=== PATIENT | male | born 1940 | race Caucasian/White ===

== ENCOUNTER 2017-04-17 08:47 | Inpatient (IN) | payer MEDICARE ==
[2017-04-17] MEDS ORDERED: SODIUM CHLORIDE 0.9% 1,000 ML IV STA (09:05)
--- NOTE | 2017-04-17 09:12 | ED ---
General Adult HPI - General Chief complaint: Fall Stated complaint: fall, chest pain,sweats Time Seen by Provider: 04/17/17 08:54 Source: patient, RN notes reviewed, old records reviewed Mode of arrival: wheelchair Limitations: physical limitation - History of Present Illness Initial comments: Patient is a 77-year-old male with significant past medical history for diabetes , hypertension, hyperlipidemia, penile cancer, who presents emergency room today with multiple complaints. Patient does admit that he had a fall 3 days ago. He states he was outside using a Rototiller. States he fell hitting the handle. Also admits that he had a fall hitting the right side of his anterior ribs on a step. Patient hasn't met that he's had a history of some frequent falls. He denies any head injury or loss conscious. She is not on any blood tenderness. States he has had some pain to the right side of his ribs has been worsening cough and certain movements. He does admit that he is experiencing some pain in the right chest wall at this time. He admits that he's had some "night sweats" the last 2 nights. He denies any recorded temperatures. He admits that he's had increased urinary urgency. States that he's had difficulty at times making to the bathroom and has had a few accidents. 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 He does admit to some chronic numbness tingling going in both legs. States she's not noticed any increase here. States he has had any numbness or tingling in the groin area. Patient does admit that he did experience some low back pain. A was working in his ear at this time denies any back pain. Currently only experiencing some mild right- sided chest pain which she attributes these falls. Patient denies any recent fever, chills, shortness of breath, chest pain, back pain, abdominal pain, nausea or vomiting, numbness or tingling, dysuria or hematuria, constipation or diarrhea, headaches or visual changes, or any other complaints. - Related Data Home Medications Medication Instructions Recorded Confirmed Lovastatin [Mevacor] 40 mg PO HS 02/18/16 04/17/17 rOPINIRole HCL 3 mg PO HS 02/18/16 04/17/17 metFORMIN HCL [Glucophage] 1,000 mg PO BID 05/23/16 04/17/17 Amitriptyline HCl [Elavil] 25 mg PO HS 04/17/17 04/17/17 Aspirin 81 mg PO DAILY 04/17/17 04/17/17 Cholecalciferol [Vitamin D3] 1,000 unit PO DAILY 04/17/17 04/17/17 Cyanocobalamin (Vitamin B-12) 1,000 mcg PO DAILY 04/17/17 04/17/17 [Vitamin B-12] Lisinopril-Hctz 20-12.5 mg 1 tab PO DAILY 04/17/17 04/17/17 [Zestoretic 20-12.5] Previous Rx's Medication Instructions Recorded Multivitamins, Thera [Multivitamin 1 tab PO DAILY #30 tablet 02/21/16 (formulary)] Allergies Allergy/AdvReac Type Severity Reaction Status Date / Time amoxicillin trihydrate Allergy Rash/Hives Verified 04/17/17 09:16 [From Augmentin] potassium clavulanate Allergy Rash/Hives Verified 04/17/17 09:16 [From Augmentin] Review of Systems ROS Statement: Those systems with pertinent positive or pertinent negative responses have been documented in the HPI. ROS Other: All systems not noted in ROS Statement are negative. Past Medical History Past Medical History: Cancer, Diabetes Mellitus, Hyperlipidemia, Hypertension, Osteoarthritis (OA), Pneumonia Additional Past Medical History / Comment(s): hx penile cancer History of Any Multi-Drug Resistant Organisms: None Reported Past Surgical History: Orthopedic Surgery Additional Past Surgical History / Comment(s): penectomy, great toe left foot amputated, mukul cataract Past Anesthesia/Blood Transfusion Reactions: No Reported Reaction Past Psychological History: No Psychological Hx Reported Additional Psychological History / Comment(s): . Smoking Status: Never smoker Past Alcohol Use History: Daily Past Drug Use History: None Reported - Past Family History Father Family Medical History: Cancer Mother Family Medical History: Coronary Artery Disease (CAD) General Exam Limitations: physical limitation Course Vital Signs 04/17/17 04/17/17 04/17/17 08:49 09:49 10:00 Temperature 98.8 F Pulse Rate 97 91 95 Respiratory 20 18 18 Rate Blood Pressure 160/78 154/72 154/76 O2 Sat by Pulse 97 92 L Oximetry EKG Findings - EKG Comments: EKG Findings:: EKG performed at 0903: Shows normal sinus rhythm at 97 bpm. KS interval 148. QRS 100. QT/QTC 370/469. No acute ST changes. Medical Decision Making - Medical Decision Making Is reexamined at this time shows no signs of distress resting comfortably in the stretcher. Patient's x-ray of the chest does show evidence of a left-sided pneumonia. Patient does have right sixth rib fracture nondisplaced. Patient's CT of the head does show evidence for normal pressure hydrocephalus and chronic sinusitis. No other acute abnormalities appreciated his cervical spine or head CT. Patient's labs reviewed and does show 30,000 white count. Patient has seen for elevated white counts in the past. Patient urinalysis does show 7 white cells with occasional bacteria. Culture is pending. Patient has been started on Levaquin to cover for pneumonia and urinary tract infection. Patient will be admitted to the hospital for further treatment. - Lab Data Result diagrams: 04/17/17 09:11 04/17/17 09:11 Lab Results 04/17/17 04/17/17 04/17/17 Range/Units 09:11 09:11 09:11 WBC 30.8 H* (3.8-10.6) k/uL RBC 4.57 (4.30-5.90) m/uL Hgb 12.6 L (13.0-17.5) gm/dL Hct 39.8 (39.0-53.0) % MCV 87.1 (80.0-100.0) fL MCH 27.5 (25.0-35.0) pg MCHC 31.6 (31.0-37.0) g/dL RDW 19.0 H (11.5-15.5) % Plt Count 106 L (150-450) k/uL Neutrophils % (Manual) 60.0 % Band Neutrophils % 27.5 % Lymphocytes % (Manual) 2.0 % Monocytes % (Manual) 0.5 % Metamyelocytes % 6.0 % Myelocytes % 3.0 % Promyelocytes % 1.0 % Neutrophils # (Manual) 27.0 H (1.3-7.7) k/uL Lymphocytes # (Manual) 0.6 L (1.0-4.8) k/uL Monocytes # (Manual) 0.2 (0-1.0) k/uL Nucleated RBCs 1 H (0-0) /100 WBC Manual Slide Review Performed Toxic Granulation Present Hypochromasia Slight Anisocytosis Slight PT (9.0-12.0) sec INR (<1.1) APTT (22.0-30.0) sec Sodium 139 (137-145) mmol/L Potassium 4.8 (3.5-5.1) mmol/L Chloride 101 (98-107) mmol/L Carbon Dioxide 20 L (22-30) mmol/L Anion Gap 18 mmol/L BUN 27 H (9-20) mg/dL Creatinine 1.55 H (0.66-1.25) mg/dL Est GFR (MDRD) Af Amer 53 (>60 ml/min/1.73 sqM) Est GFR (MDRD) Non-Af 44 (>60 ml/min/1.73 sqM) Glucose 200 H (74-99) mg/dL Plasma Lactic Acid Mando (0.7-2.0) mmol/L Calcium 9.8 (8.4-10.2) mg/dL Magnesium 1.8 (1.6-2.3) mg/dL Total Bilirubin 1.3 (0.2-1.3) mg/dL AST 37 (17-59) U/L ALT 30 (21-72) U/L Alkaline Phosphatase 106 (38-126) U/L Total Creatine Kinase 97 (55-170) U/L CK-MB (CK-2) 0.7 (0.0-2.4) ng/mL CK-MB (CK-2) Rel Index 0.7 Troponin I 0.031 (0.000-0.034) ng/mL Total Protein 7.5 (6.3-8.2) g/dL Albumin 4.3 (3.5-5.0) g/dL Urine Color Urine Appearance (Clear) Urine pH (5.0-8.0) Ur Specific [place] (1.001-1.035) Urine Protein (Negative) Urine Glucose (UA) (Negative) Urine Blood (Negative) Urine Nitrite (Negative) Urine Bilirubin (Negative) Urine Urobilinogen (<2.0) mg/dL Ur Leukocyte Esterase (Negative) Urine RBC (0-5) /hpf Urine WBC (0-5) /hpf Urine WBC Clumps (None) /hpf Urine Bacteria (None) /hpf 04/17/17 04/17/17 04/17/17 Range/Units 09:11 09:11 10:00 WBC (3.8-10.6) k/uL RBC (4.30-5.90) m/uL Hgb (13.0-17.5) gm/dL Hct (39.0-53.0) % MCV (80.0-100.0) fL MCH (25.0-35.0) pg MCHC (31.0-37.0) g/dL RDW (11.5-15.5) % Plt Count (150-450) k/uL Neutrophils % (Manual) % Band Neutrophils % % Lymphocytes % (Manual) % Monocytes % (Manual) % Metamyelocytes % % Myelocytes % % Promyelocytes % % Neutrophils # (Manual) (1.3-7.7) k/uL Lymphocytes # (Manual) (1.0-4.8) k/uL Monocytes # (Manual) (0-1.0) k/uL Nucleated RBCs (0-0) /100 WBC Manual Slide Review Toxic Granulation Hypochromasia Anisocytosis PT 11.2 (9.0-12.0) sec INR 1.1 (<1.1) APTT 30.5 H (22.0-30.0) sec Sodium (137-145) mmol/L Potassium (3.5-5.1) mmol/L Chloride (98-107) mmol/L Carbon Dioxide (22-30) mmol/L Anion Gap mmol/L BUN (9-20) mg/dL Creatinine (0.66-1.25) mg/dL Est GFR (MDRD) Af Amer (>60 ml/min/1.73 sqM) Est GFR (MDRD) Non-Af (>60 ml/min/1.73 sqM) Glucose (74-99) mg/dL Plasma Lactic Acid Mando 1.5 (0.7-2.0) mmol/L Calcium (8.4-10.2) mg/dL Magnesium (1.6-2.3) mg/dL Total Bilirubin (0.2-1.3) mg/dL AST (17-59) U/L ALT (21-72) U/L Alkaline Phosphatase (38-126) U/L Total Creatine Kinase (55-170) U/L CK-MB (CK-2) (0.0-2.4) ng/mL CK-MB (CK-2) Rel Index Troponin I (0.000-0.034) ng/mL Total Protein (6.3-8.2) g/dL Albumin (3.5-5.0) g/dL Urine Color Yellow Urine Appearance Clear (Clear) Urine pH 6.5 (5.0-8.0) Ur Specific [place] 1.013 (1.001-1.035) Urine Protein 2+ H (Negative) Urine Glucose (UA) Negative (Negative) Urine Blood Small H (Negative) Urine Nitrite Negative (Negative) Urine Bilirubin Negative (Negative) Urine Urobilinogen 2.0 (<2.0) mg/dL Ur Leukocyte Esterase Negative (Negative) Urine RBC 5 (0-5) /hpf Urine WBC 7 H (0-5) /hpf Urine WBC Clumps Rare H (None) /hpf Urine Bacteria Occasional H (None) /hpf Disposition Clinical Impression: Community acquired pneumonia, Leukocytosis, Rib fracture, Normal pressure hydrocephalus, UTI (urinary tract infection) Disposition: ADMITTED IP TO THIS HOSP Condition: Good Referrals: Hamilton Rodriguez DO [Primary Care Provider] - 1-2 days Time of Disposition: 11:31 Decision Time: 11:03
[2017-04-17 09:45] LABS: Anisocytosis Slight; CH 27.2; CHCM 31.4; HCT 39.8 % (39.0-53.0); HDW 2.95; HGB 12.6 gm/dL (13.0-17.5); Hypochromasia Slight; Immature Gran Flag Marked; MCH 27.5 pg (25.0-35.0); MCHC 31.6 g/dL (31.0-37.0); MCV 87.1 fL (80.0-100.0); Mean Platelet Volume 8.4; RBC 4.57 m/uL (4.30-5.90); WBC (Perox) 31.14
[2017-04-17 10:03] LABS: Calcium 9.8 mg/dL (8.4-10.2); Magnesium 1.8 mg/dL (1.6-2.3); Potassium 4.8 mmol/L (3.5-5.1); Total Bilirubin 1.3 mg/dL (0.2-1.3); Total Protein 7.5 g/dL (6.3-8.2)
[2017-04-17 10:09] LABS: Add Differential Manual Differential
[2017-04-17 10:13] LABS: Band Neutrophils % 27.5 %; Nucleated Red Blood Cells 1 /100 WBC (0-0); Total Cells Counted 200
[2017-04-17 10:15] LABS: Manual Review Performed; Toxic Granulation Present; WBC 30.8 k/uL (3.8-10.6)
[2017-04-17 10:17] LABS: INR 1.1 (<1.1); Partial Thromboplastin Time 30.5 sec (22.0-30.0); Prothrombin Time 11.2 sec (9.0-12.0)
--- NOTE | 2017-04-17 10:18 | XR ---
EXAMINATION TYPE: XR chest 2V, XR ribs RT DATE OF EXAM: 04/17/2017 COMPARISON: NONE HISTORY: Shortness of breath TECHNIQUE: Frontal and lateral views of the chest are obtained. FINDINGS: Scattered senescent parenchymal changes noted. Hyperinflation compatible with COPD. Mild increased density left perihilar region. No evidence for pneumothorax. Heart size is stable. Mediastinal structures are stable and grossly unremarkable. No evidence for hilar prominence. Degenerative changes dorsal spine. IMPRESSION: 1. Mild increased density left perihilar region. No evidence for pneumothorax. EXAMINATION TYPE: XR chest 2V, XR ribs RT DATE OF EXAM: 04/17/2017 CLINICAL HISTORY: Pain, Fall Four views of the ribs fail demonstrate vague cortical irregularity along the anterior right rib #6 w hich may reflect a nondisplaced fracture. Correlate clinically with point tenderness. No evidence f or pneumothorax. IMPRESSION: 1. vague cortical irregularity along the anterior right rib #6 which may reflect a nondisplaced fract ure.
[2017-04-17 10:23] LABS: Creatine Kinase MB 0.7 ng/mL (0.0-2.4); Troponin I 0.031 ng/mL (0.000-0.034)
--- NOTE | 2017-04-17 10:30 | CT ---
EXAMINATION TYPE: CT brain cspine wo con DATE OF EXAM: 04/17/2017 COMPARISON: Previous CT scan of the brain dated 03/15/2016. HISTORY: pt fell [address] DLP: brain 1029.9 and cervical 333.5 mGycm Automated exposure control for dose reduction was used. TECHNIQUE: CT scan of the head and cervical spine are performed without contrast. FINDINGS: BRAIN: There is mild hydrocephalus. This is unchanged from previous. There is only minimal sulcal pro minence. The fourth ventricle is patent. The third ventricle appears patent. There is no acute focal lesion, mass effect or midline shift identified. I do not see evidence of intracranial blood. There is minor mucoperiosteal thickening involving the frontal sinuses and also the maxillary sinus o n the right. Mastoid air cells are clear. The zygomatic arches are intact. The pterygoid plates are intact. The orbital mckeon are intact. IMPRESSION: 1. NO ACUTE INTRACRANIAL ABNORMALITY. 2. I SUSPECT SOME DEGREE OF NORMAL PRESSURE HYDROCEPHALUS. 3. CHRONIC OPACIFICATION OF THE RIGHT MAXILLARY SINUS. CERVICAL SPINE: There are emphysematous changes throughout the visualized portions of the lungs. There is some shotty cervical adenopathy. No pathologically enlarged lymph nodes are seen. Prevertebr al soft tissues are otherwise unremarkable. Vertebral body height and alignment are maintained. Atlantoaxial relationships are normal. There is m ild disc space loss and hypertrophic spondylosis at C3-4, C4-5 and C5-C6. No definite compressive dis copathy is seen. There is facet arthropathy at C3-4 C4-5 and C5-6. No fracture is seen. IMPRESSION: 1. NO ACUTE OSSEOUS LESION. 2. DEGENERATIVE CHANGE.
[2017-04-17] MEDS ORDERED: LEVOFLOXACIN 500MG-D5W PMX 500 MG in DEXTROSE/WATER 1 100ML.BAG IVPB STA (10:54)
[2017-04-17 11:25] LABS: Appearance,Urine Clear (Clear); Bacteria,Urine Occasional /hpf; Bilirubin,Urine Negative (Negative); Glucose,Urine (UA) Negative (Negative); Ketones,Urine 2+ (Negative); Leukocyte Esterase,Urine Negative (Negative); Nitrite,Urine Negative (Negative); PH, Urine 6.5 (5.0-8.0); Particle Count 2986; Protein,Urine 2+ (Negative); RBC,Urine 5 /hpf (0-5); Specific Gravity,Urine 1.013 (1.001-1.035); UA Billing (MACRO vs. MICRO) MICRO; WBC,Urine 7 /hpf (0-5)
[2017-04-17] MEDS ORDERED: SODIUM CHLORIDE 0.9% 1,000 ML IV ONE (12:00)
[2017-04-17] MEDS ORDERED: NALOXONE 0.4 MG/ML 1 ML VIAL IV PRN (12:00)
[2017-04-17] MEDS ORDERED: ONDANSETRON 4 MG/2 ML VIAL IVP PRN (12:00)
[2017-04-17] MEDS: ACETAMINOPHEN TAB 325 MG TAB PO PRN ×2 (12:33→22:34)
[2017-04-17 14:13] VITALS: BMI 25.5
[2017-04-17] MEDS ORDERED: cloNIDine HCL 0.1 MG TAB PO PRN (16:40)
[2017-04-17] MEDS ORDERED: HYDROmorphone 1 MG/ML 1 ML SYRINGE IVP PRN (16:40)
[2017-04-17] MEDS ORDERED: HYDROcodone/APAP 5-325MG 1 EACH TAB PO PRN (16:40)
[2017-04-17 17:37] LABS: Glucose,Whole Blood 200 mg/dL (75-99)
[2017-04-17] MEDS: INSULIN LISPRO (humaLOG) 300 UNIT/3 ML VIAL SQ SCH ×2 (17:49→21:38)
[2017-04-17] MEDS: SYMBICORT 160-4.5 MCG INHALER INHALATION SCH (20:15)
[2017-04-17] MEDS: LEVALBUTEROL NEB (CONC) 1.25 MG/0.5 ML AMP INHALATION SCH (20:15)
[2017-04-17] MEDS: IPRATROPIUM 0.5 MG/2.5 ML NEBU INHALATION SCH (20:16)
[2017-04-17 20:53] LABS: Hemoglobin A1C 6.2 % (4.2-6.1)
--- NOTE | 2017-04-17 21:06 | HP ---
DATE OF ADMISSION: 04/17/2017 CHIEF COMPLAINT: Cough, sputum, and not feeling well and chest pain. HISTORY OF PRESENT ILLNESS: This 77-year-old gentleman with a past medical history of multiple medical problems, including history of diabetes, hypertension, hyperlipidemia, degenerative joint disease, history of DJD, history of pneumonia, history of penile cancer surgery, history of diabetes type 2, history of peripheral neuropathy, history of degenerative joint disease being followed by Dr. Hamilton Rodriguez in the outpatient setting, has had a fall while dealing with rototiller, fell down and patient apparently hit the right shoulder with a significant bruise resulting in the right shoulder right, right chest, right upper limb and lower limbs and also patient was feeling okay. Subsequently, the patient had difficulty. The patient had some cough and sputum and as well as some pain as well and the patient also not feeling well. The patient also had frequent falls. The patient also getting night sweats for the last 2 nights, and the patient came to [facility] and was admitted to the hospital for further evaluation and treatment. Chest x-ray showed possible left-sided pneumonia extensively and also had right-sided possibly fracture also. There is no history of any rigors or chills. No history of headache, loss of consciousness or seizures at this time. Patient has previous history of alcohol at least two drinks a day. Past medical history of diabetes, hypertension, hyperlipidemia, degenerative joint disease. History of pneumonia, penile cancer, degenerative joint disease. Medications prior to admission include: 1. Naprosyn one tablet p.o. daily. 2. Zyloprim 100 mg p.o. daily. 3. Requip 3 milligrams q.h.s. 4. Glucophage 1000 mg daily. 5. Mevacor 40 mg q.h.s. 6. Zestoretic one tablet daily. 7. Neurontin 300 mg daily. 8. Aspirin 81 mg daily. 9. Vitamin D3 1000 daily. 10. Multivitamin 1 p.o. daily. 11. Vitamin B12 1000 mg p.o. daily. ALLERGIES: AMOXICILLIN. FAMILY HISTORY: History of lung cancer. SOCIAL HISTORY: History of alcohol. No history of smoking. REVIEW OF SYSTEMS: ENT: Diminished vision. Diminished hearing. CARDIOVASCULAR: No angina. RESPIRATORY: As mentioned earlier. GI: No nausea. : No dysuria. Nervous system: Nervous system: No numbness or weakness. Allergy/immunology: No asthma or hayfever. MUSCULOSKELETAL: As mentioned earlier. HEMATOLOGY/ONCOLOGY: No history of anemia. ENDOCRINE: As mentioned earlier. CONSTITUTIONAL: As mentioned earlier. DERMATOLOGY: Negative. RHEUMATOLOGY: Negative. PSYCHIATRY: As mentioned earlier. PHYSICAL EXAMINATION: The patient is alert and oriented times three. Pulse 90, blood pressure 140/68. Respiratory rate 19. Temperature 101.5, pulse ox 97% on room air. HEENT: Conjunctivae normal. Oral mucosa moist. NECK: No jugular venous distention. No carotid bruit. No lymph node enlargement. No thyroid enlargement. CARDIOVASCULAR: S1, S2 muffled. No S3, no S4. RESPIRATORY: Breath sounds diminished at the bases. Bilateral scattered rhonchi and crackles. Expiratory wheezing also present. ABDOMEN: Soft, nontender. No mass palpable. Legs: No edema. No swelling. Nervous system: Higher functions as mentioned. Moves all four limbs. No focal deficits. LYMPHATICS: No lymph nodes palpable in the neck, axillae or groin. SKIN: Extensive bruise right side of the chest, right present at this time, focal tenderness also present. Otherwise, joints: No active deforming arthropathy. LABORATORY DATA: WBC 30.8, hemoglobin is 12.6, APTT 30.5. Creatinine is 1.5. ASSESSMENT: 1. Acute left right-sided pneumonia with severe sepsis present on admission with severe pain. 2. Increased WBC. 3. Anemia, normocytic anemia of chronic disease. 4. Thrombocytopenia, possibly secondary to ETOH and possibly ETOH withdrawal. 5. Increased creatinine with acute renal failure prerenal with acute tubular necrosis. 6. Left-sided rib fracture and pain. 7. History of recent fall. 8. Diabetes mellitus type 2. 9. Hyperlipidemia. 10. Hypertension. 11. History of degenerative joint disease. 12. History of pneumonia. 13. History of penile cancer with surgery. 14. History of restless leg syndrome. 15. History of iron deficiency anemia. 16. History of degenerative joint disease. 17. History of ETOH. 18. FULL CODE. RECOMMENDATIONS AND DISCUSSION: In this 77 -year-old gentleman who presented with multiple complex medical issues, we will monitor the patient closely, continue the current medications, continue symptomatic treatment. Otherwise, at this time, recommend obtain cultures and broad-spectrum IV antibiotics and also recommend evaluation by pulmonary, bronchodilators, and symptomatic treatment, DVT prophylaxis. Guarded prognosis because of multiple complex medical issues. Further recommendations to follow. A copy of dictation is being forwarded to Dr. Rodriguez who is the primary physician. OSWALD
[2017-04-17 21:10] LABS: Glucose,Whole Blood 219 mg/dL (75-99)
[2017-04-17] MEDS: ATORVASTATIN 10 MG TAB PO SCH (21:37)
[2017-04-17] MEDS: HEPARIN SODIUM,PORCINE 5,000 UNIT/ML 1 ML VIAL SQ SCH (21:38)
[2017-04-17] MEDS: TEMAZEPAM 15 MG CAP PO PRN (21:46)
[2017-04-18] MEDS: IPRATROPIUM 0.5 MG/2.5 ML NEBU INHALATION SCH ×4 (07:25→20:13)
[2017-04-18] MEDS: SYMBICORT 160-4.5 MCG INHALER INHALATION SCH ×3 (07:25→20:15)
[2017-04-18] MEDS: LEVALBUTEROL NEB (CONC) 1.25 MG/0.5 ML AMP INHALATION SCH ×3 (07:25→20:13)
[2017-04-18] MEDS: INSULIN LISPRO (humaLOG) 300 UNIT/3 ML VIAL SQ SCH ×4 (07:38→21:51)
[2017-04-18 07:40] LABS: Glucose,Whole Blood 196 mg/dL (75-99)
[2017-04-18] MEDS: CHOLECALCIFEROL 1,000 UNIT TAB PO SCH (07:40)
[2017-04-18] MEDS: CYANOCOBALAMIN 500 MCG TAB PO SCH (07:40)
[2017-04-18] MEDS: GABAPENTIN 300 MG CAP PO SCH (07:40)
[2017-04-18] MEDS: metFORMIN 500 MG TAB PO SCH (07:40)
[2017-04-18] MEDS: HEPARIN SODIUM,PORCINE 5,000 UNIT/ML 1 ML VIAL SQ SCH ×2 (07:41→21:50)
[2017-04-18] MEDS: ALLOPURINOL 100 MG TAB PO SCH (07:41)
[2017-04-18] MEDS: PANTOPRAZOLE 40 MG TABLET PO SCH (07:41)
[2017-04-18 08:50] LABS: Anisocytosis Slight; CH 27.3; CHCM 30.3; HCT 37.5 % (39.0-53.0); HDW 2.87; HGB 11.4 gm/dL (13.0-17.5); Hypochromasia Moderate; Immature Gran Flag Slight; MCH 27.5 pg (25.0-35.0); MCHC 30.4 g/dL (31.0-37.0); MCV 90.6 fL (80.0-100.0); Mean Platelet Volume 8.2; RBC 4.14 m/uL (4.30-5.90); RDW 18.9 % (11.5-15.5); WBC (Perox) 26.38
[2017-04-18 08:56] LABS: WBC 26.7 k/uL (3.8-10.6)
[2017-04-18] MEDS ORDERED: NAPROXEN PO SCH (09:00)
[2017-04-18 09:13] LABS: Calcium 9.2 mg/dL (8.4-10.2); Potassium 4.2 mmol/L (3.5-5.1)
[2017-04-18 09:41] LABS: Add Differential Manual Differential
[2017-04-18 09:44] LABS: Band Neutrophils % 37.5 %; Metamyelocytes % 2.5 %; Nucleated Red Blood Cells 0 /100 WBC (0-0); Polychromasia Present; Total Cells Counted 200; Toxic Granulation Present
[2017-04-18] MEDS: ASPIRIN 81 MG CHEW PO SCH (09:49)
[2017-04-18] MEDS: LISINOPRIL-HCTZ 20-12.5 MG 1 EACH TAB PO SCH (09:49)
[2017-04-18] MEDS: LEVOFLOXACIN 500MG-D5W PMX 500 MG in DEXTROSE/WATER 1 100ML.BAG IVPB SCH (11:11)
[2017-04-18] MEDS: THIAMINE 100 MG TAB PO SCH (11:11)
[2017-04-18] MEDS: FOLIC ACID 1 MG TAB PO SCH (11:11)
[2017-04-18] MEDS: MULTIVITAMINS, THERA 1 EACH TAB PO SCH (11:11)
[2017-04-18 11:27] LABS: Glucose,Whole Blood 266 mg/dL (75-99)
--- NOTE | 2017-04-18 11:27 | P.CNPUL ---
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 The patient also has been vascular disease and he has had amputation of the toe. 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 He apparently sustained some injury to the right side of the chest and he presented to the hospital because of pain on the right side of his ribs along with worsening cough and chest congestion. The patient was febrile and was having sweats at night. He had also increased urinary frequency. No change in mental status. No head injury. No hemoptysis. He has chronic back pain. Chest x-ray showed a left perihilar pneumonia along with that the patient was found to have significant leukocytosis with a white cell count of 30,000. He was started on broad- spectrum antibiotics and he was admitted to the floor. No gastrointestinal symptoms of nausea vomiting or abdominal pain. No bright red blood per rectum or evidence of any GI bleed. No aspiration. No loss of consciousness. CAT scan of the brain showed no acute abnormalities and the CAT scan of the brain also showed some degree of normal pressure hydrocephalus. Chronic up with fixation of the right axillary sinus was present. Degenerative hypertrophic spondylosis at multiple levels of the cervical spine. Review of Systems All systems: negative Constitutional: Denies chills, Denies fever Eyes: denies blurred vision, denies pain Ears, nose, mouth and throat: Denies headache, Denies sore throat Cardiovascular: Reports chest pain, Reports dyspnea on exertion, Denies shortness of breath Respiratory: Reports cough, Reports dyspnea Gastrointestinal: Denies abdominal pain, Denies diarrhea, Denies nausea, Denies vomiting Musculoskeletal: Denies myalgias Integumentary: Denies pruritus, Denies rash Neurological: Reports numbness, Reports weakness (Along with episodes of falls) Psychiatric: Denies anxiety, Denies depression Endocrine: Denies fatigue, Denies weight change Past Medical History Past Medical History: Cancer, Diabetes Mellitus, Hyperlipidemia, Hypertension, Osteoarthritis (OA), Pneumonia, Renal Disease (Chronic renal failure, probably due to the diabetes), Vascular Disorder Additional Past Medical History / Comment(s): Penile cancer with surgery, NIDDM type II, neuropathy bilateral lower legs/feet, RLS, iron deficiency anemia and has had iron infusions, arthritis multiple joints. History of Any Multi-Drug Resistant Organisms: None Reported Past Surgical History: Orthopedic Surgery Additional Past Surgical History / Comment(s): Penile resection, great toe left foot amputated, mukul cataract removal with lens implants, colonoscopy-normal, BMA with bx. Past Anesthesia/Blood Transfusion Reactions: No Reported Reaction Past Psychological History: No Psychological Hx Reported Additional Psychological History / Comment(s): Pt resides with his spouse. He uses a cane to ambulate. He drives some. His spouse also drives. Smoking Status: Never smoker Past Alcohol Use History: Daily Additional Past Alcohol Use History / Comment(s): Pt states he has 2 beers a day. Past Drug Use History: None Reported - Past Family History Father Family Medical History: Cancer Additional Family Medical History / Comment(s): Father had lung cancer. He was a smoker. Mother Family Medical History: Coronary Artery Disease (CAD) Medications and Allergies Home Medications Medication Instructions Recorded Confirmed Type Lovastatin [Mevacor] 40 mg PO HS 02/18/16 04/17/17 History rOPINIRole HCL 3 mg PO HS 02/18/16 04/17/17 History metFORMIN HCL [Glucophage] 1,000 mg PO DAILY 05/23/16 04/17/17 History Allopurinol [Zyloprim] 100 mg PO DAILY 04/17/17 04/17/17 History Aspirin 81 mg PO DAILY 04/17/17 04/17/17 History Cholecalciferol [Vitamin D3] 1,000 unit PO DAILY 04/17/17 04/17/17 History Cyanocobalamin (Vitamin B-12) 1,000 mcg PO DAILY 04/17/17 04/17/17 History [Vitamin B-12] Gabapentin [Neurontin] 300 mg PO DAILY 04/17/17 04/17/17 History Lisinopril-Hctz 20-12.5 mg 1 tab PO DAILY 04/17/17 04/17/17 History [Zestoretic 20-12.5] Naproxen [Naprosyn] 1 tab PO DAILY 04/17/17 04/17/17 History Allergies Allergy/AdvReac Type Severity Reaction Status Date / Time amoxicillin trihydrate Allergy Hallucinati Verified 04/17/17 14:05 [From Augmentin] ons potassium clavulanate Allergy Rash/Hives Verified 04/17/17 09:16 [From Augmentin] Physical Exam Vitals: Vital Signs Temp Pulse Resp BP Pulse Ox 04/17/17 13:19 101.5 F H 90 18 147/68 97 04/17/17 13:00 101.3 F H 04/17/17 12:17 99.9 F H 16 144/67 94 L 04/17/17 10:00 95 18 154/76 92 L 04/17/17 09:49 91 18 154/72 04/17/17 08:49 98.8 F 97 20 160/78 97 Intake and Output 04/17/17 04/17/17 04/17/17 06:59 14:59 22:59 Output Total 150 Balance -150 Output: Urine 150 Straight 150 Other: Voiding Method Urinal Weight 90.265 kg Patient Weight 04/18/17 06:59 Weight 90.265 kg The patient appeared well nourished and normally developed. Vital signs as documented. Head exam is unremarkable. No scleral icterus or corneal arcus noted. Neck is without jugular venous distension, thyromegaly, or carotid bruits. Carotid upstrokes are brisk bilaterally. Lungs are clear to auscultation and percussion. Cardiac exam reveals the PMI to be normally sized and situated. Rhythm is regular. First and second heart sounds normal. No murmurs, rubs or gallops. Abdominal exam reveals normal bowel sounds, no masses , no organomegaly and no aortic enlargement. Extremities are nonedematous and both femoral and pedal pulses are normal. Results - Laboratory Findings CBC and BMP: 04/17/17 09:11 04/17/17 09:11 PT/INR, D-dimer PT 11.2 sec (9.0-12.0) 04/17/17 09:11 INR 1.1 (<1.1) 04/17/17 09:11 Abnormal lab findings: Abnormal Labs 04/17/17 04/17/17 04/17/17 09:11 09:11 09:11 WBC 30.8 H* Hgb 12.6 L RDW 19.0 H Plt Count 106 L Neutrophils # (Manual) 27.0 H Lymphocytes # (Manual) 0.6 L Nucleated RBCs 1 H APTT 30.5 H Carbon Dioxide 20 L BUN 27 H Creatinine 1.55 H Glucose 200 H Urine Protein Urine Ketones Urine Blood Urine WBC Urine WBC Clumps Urine Bacteria 04/17/17 10:00 WBC Hgb RDW Plt Count Neutrophils # (Manual) Lymphocytes # (Manual) Nucleated RBCs APTT Carbon Dioxide BUN Creatinine Glucose Urine Protein 2+ H Urine Ketones 2+ H Urine Blood Small H Urine WBC 7 H Urine WBC Clumps Rare H Urine Bacteria Occasional H - Diagnostic Findings Chest x-ray: image reviewed Assessment and Plan Plan: Assessment 1 left perihilar/left upper lobe pneumonia 2 leukocytosis secondary to above 3 blunt trauma to the right chest without evidence of any rib fractures. 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 Penile cancer status post resection 8 hyperlipidemia 9 hypertension 10 frequent falls., Rule out underlying peripheral neuropathy in addition. Plan Cover this patient in Antibiotics and utilized Levaquin. Obtain sputum Gram stain and culture. Obtain blood culture. Repeat chest x-ray with next 24 hours. Fluids with normal saline today to 75 mL an hour. Resume outpatient medication. Xopenex and ipratropium neb last treatment [id number]. We'll continue to follow.
--- NOTE | 2017-04-18 16:42 | P.PN ---
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 The patient also has been vascular disease and he has had amputation of the toe. 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 He apparently sustained some injury to the right side of the chest and he presented to the hospital because of pain on the right side of his ribs along with worsening cough and chest congestion. The patient was febrile and was having sweats at night. He had also increased urinary frequency. No change in mental status. No head injury. No hemoptysis. He has chronic back pain. Chest x-ray showed a left perihilar pneumonia along with that the patient was found to have significant leukocytosis with a white cell count of 30,000. He was started on broad- spectrum antibiotics and he was admitted to the floor. No gastrointestinal symptoms of nausea vomiting or abdominal pain. No bright red blood per rectum or evidence of any GI bleed. No aspiration. No loss of consciousness. CAT scan of the brain showed no acute abnormalities and the CAT scan of the brain also showed some degree of normal pressure hydrocephalus. Chronic up with fixation of the right axillary sinus was present. Degenerative hypertrophic spondylosis at multiple levels of the cervical spine. The patient was seen again today 04/18/2017 in follow-up on the regular medical floor. He is currently resting in bed. He is awake and alert in no acute distress. He is breathing better today as compared to yesterday. He continues with a loose nonproductive cough. He denies any worsening shortness of breath. He is maintaining good O2 saturations in the mid 90s on room air. He is maintained on bronchodilators and Levaquin. He is afebrile. Hemodynamically stable. White count improving. Creatinine improving at 1.45. Objective - Vital Signs Vital signs: Vital Signs Temp 98.8 F 04/18/17 14:59 Pulse 72 04/18/17 16:22 Resp 18 04/18/17 14:59 BP 146/67 04/18/17 14:59 Pulse Ox 94 L 04/18/17 14:59 Intake & Output 04/17/17 04/18/17 04/18/17 18:59 06:59 18:59 Intake Total 150 325 Output Total 150 300 Balance 0 25 Weight 90.265 kg Intake: Intake, IV Titration 150 225 Amount Sodium Chloride 0.9% 1, 150 225 000 ml @ 75 mls/hr IV . [id number] Rx#:[id number] Oral 100 Output: Urine 150 300 Straight 150 Other: Voiding Method Urinal Urinal Urinal # Voids 2 3 1 - Exam The patient appeared well nourished and normally developed. Vital signs as documented. Head exam is unremarkable. No scleral icterus or corneal arcus noted. Neck is without jugular venous distension, thyromegaly, or carotid bruits. Carotid upstrokes are brisk bilaterally. Lungs are clear to auscultation and percussion. Cardiac exam reveals the PMI to be normally sized and situated. Rhythm is regular. First and second heart sounds normal. No murmurs, rubs or gallops. Abdominal exam reveals normal bowel sounds, no masses , no organomegaly and no aortic enlargement. Extremities are nonedematous and both femoral and pedal pulses are normal. - Labs CBC & Chem 7: 04/18/17 08:03 04/18/17 08:03 Labs: Abnormal Lab Results - Last 24 Hours (Table) 04/17/17 04/17/17 04/17/17 Range/Units 09:11 17:34 21:02 WBC (3.8-10.6) k/uL RBC (4.30-5.90) m/uL Hgb (13.0-17.5) gm/dL Hct (39.0-53.0) % MCHC (31.0-37.0) g/dL RDW (11.5-15.5) % Plt Count (150-450) k/uL Neutrophils # (Manual) (1.3-7.7) k/uL Lymphocytes # (Manual) (1.0-4.8) k/uL Sodium (137-145) mmol/L Carbon Dioxide (22-30) mmol/L BUN (9-20) mg/dL Creatinine (0.66-1.25) mg/dL Glucose (74-99) mg/dL POC Glucose (mg/dL) 200 H 219 H (75-99) mg/dL Hemoglobin A1c 6.2 H (4.2-6.1) % 04/18/17 04/18/17 04/18/17 Range/Units 07:35 08:03 08:03 WBC 26.7 H* (3.8-10.6) k/uL RBC 4.14 L (4.30-5.90) m/uL Hgb 11.4 L (13.0-17.5) gm/dL Hct 37.5 L (39.0-53.0) % MCHC 30.4 L (31.0-37.0) g/dL RDW 18.9 H (11.5-15.5) % Plt Count 116 L (150-450) k/uL Neutrophils # (Manual) 25.0 H (1.3-7.7) k/uL Lymphocytes # (Manual) 0.8 L (1.0-4.8) k/uL Sodium 136 L (137-145) mmol/L Carbon Dioxide 21 L (22-30) mmol/L BUN 26 H (9-20) mg/dL Creatinine 1.45 H (0.66-1.25) mg/dL Glucose 200 H (74-99) mg/dL POC Glucose (mg/dL) 196 H (75-99) mg/dL Hemoglobin A1c (4.2-6.1) % 04/18/17 Range/Units 11:16 WBC (3.8-10.6) k/uL RBC (4.30-5.90) m/uL Hgb (13.0-17.5) gm/dL Hct (39.0-53.0) % MCHC (31.0-37.0) g/dL RDW (11.5-15.5) % Plt Count (150-450) k/uL Neutrophils # (Manual) (1.3-7.7) k/uL Lymphocytes # (Manual) (1.0-4.8) k/uL Sodium (137-145) mmol/L Carbon Dioxide (22-30) mmol/L BUN (9-20) mg/dL Creatinine (0.66-1.25) mg/dL Glucose (74-99) mg/dL POC Glucose (mg/dL) 266 H (75-99) mg/dL Hemoglobin A1c (4.2-6.1) % Microbiology - Last 24 Hours (Table) 04/17/17 10:00 Urine Culture - Final Urine,Catheterized 04/17/17 09:11 Blood Culture - Preliminary Blood No Growth after 24 hours Assessment and Plan Plan: Assessment 1 left perihilar/left upper lobe pneumonia 2 leukocytosis secondary to above 3 blunt trauma to the right chest without evidence of any rib fractures. 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 Penile cancer status post resection 8 hyperlipidemia 9 hypertension 10 frequent falls., Rule out underlying peripheral neuropathy in addition. Plan The patient was seen and evaluated by Dr. Honeycutt. He is improved today as compared to yesterday. We'll continue with bronchodilators and Levaquin. We' ll repeat his chest x-ray in the a.m. We'll continue to follow.
--- NOTE | 2017-04-18 17:28 | XR ---
EXAMINATION TYPE: XR chest 1V portable DATE OF EXAM: 04/18/2017 COMPARISON: Prior chest x-ray 04/17/2017 HISTORY: ] Pain TECHNIQUE: Single frontal view of the chest is obtained. FINDINGS: Persistent increased density noted in the left hemithorax as compared to the right. No isabelle dent pneumothorax. Heart size may be accentuated by rotation. IMPRESSION: Abnormal density left lower lobe, recommend chest CT. Patient is rotated.
[2017-04-18 17:42] LABS: Glucose,Whole Blood 179 mg/dL (75-99)
[2017-04-18 21:28] LABS: Glucose,Whole Blood 225 mg/dL (75-99)
--- NOTE | 2017-04-18 21:30 | PN ---
DATE OF SERVICE: 04/18/2017 This 77-year-old gentleman who was admitted with fall as well as possibly left-sided pneumonia. Left perihilar pneumonia is being closely monitored. The patient also right-sided blunt trauma with possible rib fractures also. The patient is being closely monitored. Dr. Honeycutt is following the patient closely. The patient also with significant history of EtOH. PAST MEDICAL HISTORY: Reviewed. REVIEW OF SYSTEMS: CARDIOVASCULAR: No angina or palpitations. RESPIRATORY: As mentioned earlier. GI: No nausea. : No dysuria. NERVOUS: No numbness or weakness. Current medications are reviewed and include: 1. Tylenol 650 every 6 hours p.r.n. 2. [place] 5 mg at bedtime. 3. Zyloprim 100 mg daily. 4. Aspirin 81 mg daily. 5. Lipitor 10 mg q.h.s. 6. Symbicort 160/4.5 2 puffs b.i.d. 7. Vitamin D3. 8. Catapres 0.1 q.4. 9. Vitamin B12. 10. Folic acid. 11. Neurontin. 12. Zestoretic 20/12.5. 13. Dilaudid. 14. Humalog. 15. Atrovent. 16. Xopenex. 17. Levaquin. 18. Multivitamin. 19. Narcan. 20. Zofran. 21. Protonix. PHYSICAL EXAMINATION: Alert and oriented x3. Pulse ix 97, blood pressure 146/61, respirations 18, temperature 98.8, pulse ox 94% on room air. HEENT: Conjunctivae normal. Oral mucosa moist. NECK: No jugular venous distention. No carotid bruit. No lymph node enlargement. CARDIOVASCULAR: S1 and S2 muffled. RESPIRATORY: Breath sounds diminished in the bases. A few scattered rhonchi and crackles, left more than the right. ABDOMEN: Soft, nontender. No mass palpable. LEGS: No edema. No swelling. NERVOUS SYSTEM: Higher as mentioned earlier. Moves all 4 limbs. Nonfocal. SKIN: No ulcer, rash or bleeding. LABS: WBC 26.7 down from 30.8, hemoglobin 11.4. Sodium 136, creatinine is 1.45, slightly better. ASSESSMENT: 1. Acute left-sided pneumonia with severe sepsis, present on admission with severe pain. 2. Increased WBC. 3. Anemia, normocytic anemia of chronic disease. 4. Right-sided chest pain that is related contusion and recent fall. 5. Possible right-sided rib fracture. 6. Thrombocytopenia, possibly secondary to ethanol and possible ethanol withdrawal. 7. Increased creatinine with mild acute renal failure with prerenal acute tubular necrosis, present on admission. 8. History of recent fall. 9. Diabetes mellitus type 2. 10. Hyperlipidemia. 11. Hypertension. 12. History of degenerative joint disease. 13. History of pneumonia. 14. History of penile cancer with surgery. 15. History of restless leg syndrome. 16. History of iron-deficiency anemia. 17. History of degenerative joint disease. 18. History of ethanol. 19. FULL CODE. RECOMMENDATIONS DISCUSSION: I recommend to continue current medications, continue with monitoring and symptomatic treatment. Continue with broad-spectrum IV antibiotics. Continue with IV fluids, pain medications. Repeat labs. Increase ambulation. Otherwise, we will also evaluate the patient for possible . Guarded prognosis. Further recommendations to follow. MTDD
[2017-04-18] MEDS: ACETAMINOPHEN TAB 325 MG TAB PO PRN (21:46)
[2017-04-18] MEDS: TEMAZEPAM 15 MG CAP PO PRN (21:46)
[2017-04-18] MEDS: ATORVASTATIN 10 MG TAB PO SCH (21:50)
[2017-04-19 06:51] LABS: Glucose,Whole Blood 176 mg/dL (75-99)
[2017-04-19] MEDS: metFORMIN 500 MG TAB PO SCH (07:36)
[2017-04-19] MEDS: CHOLECALCIFEROL 1,000 UNIT TAB PO SCH (07:36)
[2017-04-19] MEDS: GABAPENTIN 300 MG CAP PO SCH (07:36)
[2017-04-19] MEDS: ALLOPURINOL 100 MG TAB PO SCH (07:36)
[2017-04-19] MEDS: ASPIRIN 81 MG CHEW PO SCH (07:36)
[2017-04-19] MEDS: CYANOCOBALAMIN 500 MCG TAB PO SCH (07:37)
[2017-04-19] MEDS: PANTOPRAZOLE 40 MG TABLET PO SCH (07:37)
[2017-04-19] MEDS: LISINOPRIL-HCTZ 20-12.5 MG 1 EACH TAB PO SCH (07:37)
[2017-04-19] MEDS: INSULIN LISPRO (humaLOG) 300 UNIT/3 ML VIAL SQ SCH ×4 (07:37→22:09)
[2017-04-19] MEDS: HEPARIN SODIUM,PORCINE 5,000 UNIT/ML 1 ML VIAL SQ SCH ×2 (07:37→20:39)
[2017-04-19 07:46] VITALS: RESP 16
[2017-04-19 08:15] LABS: Anisocytosis Slight; CH 27.2; CHCM 30.8; HCT 35.7 % (39.0-53.0); HDW 2.97; HGB 11.1 gm/dL (13.0-17.5); Hypochromasia Moderate; Immature Gran Flag Marked; MCH 27.6 pg (25.0-35.0); MCHC 31.2 g/dL (31.0-37.0); MCV 88.5 fL (80.0-100.0); Mean Platelet Volume 8.3; RBC 4.04 m/uL (4.30-5.90); WBC (Perox) 16.52
[2017-04-19 08:32] LABS: Calcium 9.1 mg/dL (8.4-10.2); Potassium 4.2 mmol/L (3.5-5.1)
[2017-04-19] MEDS: SYMBICORT 160-4.5 MCG INHALER INHALATION SCH ×2 (09:05→20:06)
[2017-04-19] MEDS: LEVALBUTEROL NEB (CONC) 1.25 MG/0.5 ML AMP INHALATION SCH ×3 (09:05→20:07)
[2017-04-19] MEDS: IPRATROPIUM 0.5 MG/2.5 ML NEBU INHALATION SCH ×4 (09:05→20:07)
--- NOTE | 2017-04-19 10:03 | CT ---
EXAMINATION TYPE: CT chest wo con DATE OF EXAM: 04/19/2017 COMPARISON: Chest x-ray from yesterday HISTORY: Abn CXR, left hilar opacity. CT DLP: 694 mGycm. Automated Exposure Control for Dose Reduction was Utilized. TECHNIQUE: CT scan of the thorax is performed without IV contrast. FINDINGS: LUNGS: There is small left pleural effusion. There is multifocal areas of ill-defined consolidation i nvolving the left lower lobe with mild bronchiectatic changes. No right-sided effusion is present. No pneumothorax is seen bilaterally. MEDIASTINUM: Lack of IV contrast is noted to limit evaluation for mediastinal and especially hilar ad enopathy. There are no definitive greater than 1 cm hilar or mediastinal lymph nodes. No cardiomega ly or pericardial effusion is seen. There is coronary artery calcification and/or coronary stents pre sent. OTHER: End-stage atrophied the left kidney is noted. There is prominent multilevel spurring of the sp ine. IMPRESSION: Suspect left lower lobe pneumonia, clinical correlation advised. Consider follow-up study after treatment.
[2017-04-19 10:56] LABS: Add Differential Manual Differential
[2017-04-19 10:59] LABS: Manual Review Performed; Nucleated Red Blood Cells 0 /100 WBC (0-0); Promyelocytes % 0.5 %; Total Cells Counted 200
[2017-04-19 11:00] LABS: Polychromasia Present
[2017-04-19 11:33] LABS: Glucose,Whole Blood 171 mg/dL (75-99)
[2017-04-19] MEDS: FOLIC ACID 1 MG TAB PO SCH (12:28)
[2017-04-19] MEDS: LEVOFLOXACIN 500MG-D5W PMX 500 MG in DEXTROSE/WATER 1 100ML.BAG IVPB SCH (12:28)
[2017-04-19] MEDS: MULTIVITAMINS, THERA 1 EACH TAB PO SCH (12:28)
[2017-04-19] MEDS: THIAMINE 100 MG TAB PO SCH (12:28)
--- NOTE | 2017-04-19 13:01 | P.PN ---
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 The patient also has been vascular disease and he has had amputation of the toe. 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 He apparently sustained some injury to the right side of the chest and he presented to the hospital because of pain on the right side of his ribs along with worsening cough and chest congestion. The patient was febrile and was having sweats at night. He had also increased urinary frequency. No change in mental status. No head injury. No hemoptysis. He has chronic back pain. Chest x-ray showed a left perihilar pneumonia along with that the patient was found to have significant leukocytosis with a white cell count of 30,000. He was started on broad- spectrum antibiotics and he was admitted to the floor. No gastrointestinal symptoms of nausea vomiting or abdominal pain. No bright red blood per rectum or evidence of any GI bleed. No aspiration. No loss of consciousness. CAT scan of the brain showed no acute abnormalities and the CAT scan of the brain also showed some degree of normal pressure hydrocephalus. Chronic up with fixation of the right axillary sinus was present. Degenerative hypertrophic spondylosis at multiple levels of the cervical spine. The patient was seen again today 04/18/2017 in follow-up on the regular medical floor. He is currently resting in bed. He is awake and alert in no acute distress. He is breathing better today as compared to yesterday. He continues with a loose nonproductive cough. He denies any worsening shortness of breath. He is maintaining good O2 saturations in the mid 90s on room air. He is maintained on bronchodilators and Levaquin. He is afebrile. Hemodynamically stable. White count improving. Creatinine improving at 1.45. The patient is seen again today in follow-up 04/19/2017 on the regular medical floor. He is awake and alert in no acute distress. He is breathing easier today as compared to yesterday. He denies any worsening shortness of breath cough or congestion. He continues to maintain good O2 saturations in the 90s on room air. White count continues to improve. He is afebrile. Hemodynamically stable. Up ambulating with assistance. Objective - Vital Signs Vital signs: Vital Signs Temp 97.8 F 04/19/17 07:00 Pulse 86 04/19/17 07:00 Resp 16 04/19/17 07:00 BP 134/62 04/19/17 07:00 Pulse Ox 96 04/19/17 07:00 Intake & Output 04/18/17 04/19/17 04/19/17 18:59 06:59 18:59 Intake Total 580 Output Total 100 100 Balance 480 -100 Weight 90.265 kg Intake: Oral 580 Output: Urine 100 100 Other: Voiding Method Urinal Urinal Toilet Urinal # Voids 1 3 3 - Exam The patient appeared well nourished and normally developed. Vital signs as documented. Head exam is unremarkable. No scleral icterus or corneal arcus noted. Neck is without jugular venous distension, thyromegaly, or carotid bruits. Carotid upstrokes are brisk bilaterally. Lungs are clear to auscultation and percussion. Cardiac exam reveals the PMI to be normally sized and situated. Rhythm is regular. First and second heart sounds normal. No murmurs, rubs or gallops. Abdominal exam reveals normal bowel sounds, no masses , no organomegaly and no aortic enlargement. Extremities are nonedematous and both femoral and pedal pulses are normal. - Labs CBC & Chem 7: 04/19/17 07:31 04/19/17 07:31 Labs: Abnormal Lab Results - Last 24 Hours (Table) 04/18/17 04/18/17 04/19/17 Range/Units 17:37 21:26 06:50 WBC (3.8-10.6) k/uL RBC (4.30-5.90) m/uL Hgb (13.0-17.5) gm/dL Hct (39.0-53.0) % RDW (11.5-15.5) % Plt Count (150-450) k/uL Neutrophils # (Manual) (1.3-7.7) k/uL Lymphocytes # (Manual) (1.0-4.8) k/uL Sodium (137-145) mmol/L BUN (9-20) mg/dL Creatinine (0.66-1.25) mg/dL Glucose (74-99) mg/dL POC Glucose (mg/dL) 179 H 225 H 176 H (75-99) mg/dL 06/09/17 06/09/17 06/09/17 Range/Units 07:31 07:31 11:32 WBC 16.0 H (3.8-10.6) k/uL RBC 4.04 L (4.30-5.90) m/uL Hgb 11.1 L (13.0-17.5) gm/dL Hct 35.7 L (39.0-53.0) % RDW 19.0 H (11.5-15.5) % Plt Count 130 L (150-450) k/uL Neutrophils # (Manual) 13.6 H (1.3-7.7) k/uL Lymphocytes # (Manual) 0.6 L (1.0-4.8) k/uL Sodium 135 L (137-145) mmol/L BUN 31 H (9-20) mg/dL Creatinine 1.80 H (0.66-1.25) mg/dL Glucose 178 H (74-99) mg/dL POC Glucose (mg/dL) 171 H (75-99) mg/dL Microbiology - Last 24 Hours (Table) 04/17/17 10:00 Urine Culture - Final Urine,Catheterized 04/17/17 09:11 Blood Culture - Preliminary Blood No Growth after 24 hours Assessment and Plan Plan: Assessment 1 left perihilar/left upper lobe pneumonia. 2 leukocytosis secondary to above 3 blunt trauma to the right chest without evidence of any rib fractures. 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 Penile cancer status post resection 8 hyperlipidemia 9 hypertension 10 frequent falls., Rule out underlying peripheral neuropathy in addition. Plan The patient was seen and evaluated by Dr. Honeycutt. He is improved today as compared to yesterday. We'll continue with bronchodilators and Levaquin. We will increase his activity as tolerated. We'll continue to follow.
[2017-04-19 16:35] LABS: Glucose,Whole Blood 170 mg/dL (75-99)
[2017-04-19] MEDS: ATORVASTATIN 10 MG TAB PO SCH (20:39)
[2017-04-19] MEDS: TEMAZEPAM 15 MG CAP PO PRN (20:43)
--- NOTE | 2017-04-19 20:47 | PN ---
DATE OF SERVICE: 04/19/2017 This 77-year-old gentleman who was admitted with pneumonia on the left side is also running fever also. No chest or palpitation. The patient on broad spectrum IV antibiotics. Dr. Honeycutt is following the patient closely. The patient had a CT scan . No chest pain. No palpitations. On exam, alert and oriented x3. Pulse 94. Blood pressure 130/62, respirations 16, temperature 98.4. Pulse ox 94% on room air. HEENT: Conjunctivae normal. NECK: No jugular venous distention. CARDIOVASCULAR: S1, S2 muffled. RESPIRATORY: Breath sounds diminished at the bases. A few scattered rhonchi. ABDOMEN: Soft, nontender. LEGS: No edema. No swelling. CENTRAL NERVOUS SYSTEM: No focal deficits. LABS: WBC 16. Hemoglobin 11. Sodium 135. Creatinine 1.80. ASSESSMENT: 1. Acute left-sided pneumonia. Severe sepsis, present on admission with severe pain, right-sided chest pain. 2. Increased WBC. 3. Anemia, normocytic anemia of chronic disease. 4. Right-sided chest pain with contusion and recent fall. 5. History of right-sided rib fracture. 6. Thrombocytopenia, possibly secondary to ETOH. 7. Possibly ETOH withdrawal. 8. Increased creatinine with mild acute renal failure with prerenal acute tubular necrosis, present on admission. 9. History of recent fall. 10. Diabetes mellitus type 2. 11. Hyperlipidemia. 12. Hypertension. 13. Degenerative joint disease. 14. History of pneumonia. 15. History of cancer surgery. 16. History of restless leg syndrome. 17. History of iron deficiency anemia. 18. History of degenerative joint disease. 19. History of ETOH. 20. FULL CODE. RECOMMENDATIONS AND DISCUSSION: Recommend to continue current medications, continue with monitoring, symptomatic treatment. Otherwise, at this time, I recommended continue with broad-spectrum IV antibiotics. Follow the cultures. Follow creatinine. Otherwise, closely follow with Dr. Honeycutt. Further recommendations to follow. MTDD
[2017-04-19 20:55] LABS: Glucose,Whole Blood 230 mg/dL (75-99)
[2017-04-19 22:50] VITALS: PULSE 88
[2017-04-20 07:33] LABS: Calcium 9.1 mg/dL (8.4-10.2); Potassium 4.1 mmol/L (3.5-5.1)
[2017-04-20] MEDS: LEVALBUTEROL NEB (CONC) 1.25 MG/0.5 ML AMP INHALATION SCH ×2 (07:52→11:10)
[2017-04-20] MEDS: IPRATROPIUM 0.5 MG/2.5 ML NEBU INHALATION SCH ×2 (07:52→11:10)
[2017-04-20] MEDS: SYMBICORT 160-4.5 MCG INHALER INHALATION SCH (07:52)
[2017-04-20] MEDS: INSULIN LISPRO (humaLOG) 300 UNIT/3 ML VIAL SQ SCH (07:58)
[2017-04-20 08:00] LABS: Glucose,Whole Blood 202 mg/dL (75-99)
[2017-04-20] MEDS: CYANOCOBALAMIN 500 MCG TAB PO SCH (08:04)
[2017-04-20] MEDS: MULTIVITAMINS, THERA 1 EACH TAB PO SCH (08:04)
[2017-04-20] MEDS: metFORMIN 500 MG TAB PO SCH (08:04)
[2017-04-20] MEDS: PANTOPRAZOLE 40 MG TABLET PO SCH (08:04)
[2017-04-20] MEDS: ASPIRIN 81 MG CHEW PO SCH (08:05)
[2017-04-20] MEDS: GABAPENTIN 300 MG CAP PO SCH (08:05)
[2017-04-20] MEDS: CHOLECALCIFEROL 1,000 UNIT TAB PO SCH (08:05)
[2017-04-20] MEDS: FOLIC ACID 1 MG TAB PO SCH (08:05)
[2017-04-20] MEDS: THIAMINE 100 MG TAB PO SCH (08:05)
[2017-04-20] MEDS: ALLOPURINOL 100 MG TAB PO SCH (08:05)
[2017-04-20] MEDS: HEPARIN SODIUM,PORCINE 5,000 UNIT/ML 1 ML VIAL SQ SCH (08:06)
[2017-04-20] MEDS: LISINOPRIL-HCTZ 20-12.5 MG 1 EACH TAB PO SCH (08:06)
[2017-04-20 08:37] LABS: Anisocytosis Slight; CH 27.3; CHCM 31.7; HCT 34.4 % (39.0-53.0); HDW 3.01; Hypochromasia Slight; Immature Gran Flag Marked; MCH 27.6 pg (25.0-35.0); MCHC 31.9 g/dL (31.0-37.0); MCV 86.6 fL (80.0-100.0); Mean Platelet Volume 8.5; RBC 3.97 m/uL (4.30-5.90); RDW 18.9 % (11.5-15.5); WBC 11.7 k/uL (3.8-10.6); WBC (Perox) 11.52
[2017-04-20] MEDS ORDERED: LEVOFLOXACIN 250 MG TAB PO SCH (09:00)
[2017-04-20 09:02] VITALS: BP 145/68; TEMP 98.1
[2017-04-20 09:54] LABS: Add Differential Manual Differential
[2017-04-20 09:58] LABS: Metamyelocytes % 6.5 %; Myelocytes % 3.5 %; Nucleated Red Blood Cells 0 /100 WBC (0-0); Polychromasia Present; Total Cells Counted 200
[2017-04-20 11:56] LABS: Glucose,Whole Blood 229 mg/dL (75-99)
--- NOTE | 2017-04-20 13:04 | P.PN ---
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 The patient also has been vascular disease and he has had amputation of the toe. 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 He apparently sustained some injury to the right side of the chest and he presented to the hospital because of pain on the right side of his ribs along with worsening cough and chest congestion. The patient was febrile and was having sweats at night. He had also increased urinary frequency. No change in mental status. No head injury. No hemoptysis. He has chronic back pain. Chest x-ray showed a left perihilar pneumonia along with that the patient was found to have significant leukocytosis with a white cell count of 30,000. He was started on broad- spectrum antibiotics and he was admitted to the floor. No gastrointestinal symptoms of nausea vomiting or abdominal pain. No bright red blood per rectum or evidence of any GI bleed. No aspiration. No loss of consciousness. CAT scan of the brain showed no acute abnormalities and the CAT scan of the brain also showed some degree of normal pressure hydrocephalus. Chronic up with fixation of the right axillary sinus was present. Degenerative hypertrophic spondylosis at multiple levels of the cervical spine. The patient was seen again today 04/18/2017 in follow-up on the regular medical floor. He is currently resting in bed. He is awake and alert in no acute distress. He is breathing better today as compared to yesterday. He continues with a loose nonproductive cough. He denies any worsening shortness of breath. He is maintaining good O2 saturations in the mid 90s on room air. He is maintained on bronchodilators and Levaquin. He is afebrile. Hemodynamically stable. White count improving. Creatinine improving at 1.45. The patient is seen again today in follow-up 04/19/2017 on the regular medical floor. He is awake and alert in no acute distress. He is breathing easier today as compared to yesterday. He denies any worsening shortness of breath cough or congestion. He continues to maintain good O2 saturations in the 90s on room air. White count continues to improve. He is afebrile. Hemodynamically stable. Up ambulating with assistance. The patient is seen again today 04/20/2017 in follow-up on the regular medical floor. He is currently sitting up in a chair at the bedside. He is awake and alert in no acute distress. He is anxious to go home. His computed tomography scan of the chest did reveal a left lower lobe pneumonia. No other significant abnormalities noted. His white count has improved. He is maintaining good O2 saturations in the 90s on room air. Renal function is improved. Objective - Vital Signs Vital signs: Vital Signs Temp 98.1 F 04/20/17 07:00 Pulse 88 04/20/17 08:00 Resp 16 04/20/17 08:00 BP 145/68 04/20/17 07:00 Pulse Ox 95 04/20/17 07:00 Intake & Output 04/19/17 04/20/17 04/20/17 18:59 06:59 18:59 Intake Total 900 400 Output Total 200 Balance 700 400 Weight 90.265 kg 90.265 kg Intake: Intake, IV Titration 100 Amount Levofloxacin 500Mg-D5w 100 Pmx 500 mg In Dextrose/ Water 1 100ml.bag @ 100 mls/hr IVPB Q24H [facility] Rx#: [id number] Oral 800 400 Output: Urine 200 Other: Voiding Method Toilet Toilet Toilet Urinal Urinal Urinal Diaper # Voids 3 1 2 # Bowel Movements 1 - Exam The patient appeared well nourished and normally developed. Vital signs as documented. Head exam is unremarkable. No scleral icterus or corneal arcus noted. Neck is without jugular venous distension, thyromegaly, or carotid bruits. Carotid upstrokes are brisk bilaterally. Lungs are clear to auscultation and percussion other than faint crackles in the left base. Cardiac exam reveals the PMI to be normally sized and situated. Rhythm is regular. First and second heart sounds normal. No murmurs, rubs or gallops. Abdominal exam reveals normal bowel sounds, no masses, no organomegaly and no aortic enlargement. Extremities are nonedematous and both femoral and pedal pulses are normal. - Labs CBC & Chem 7: 04/20/17 06:45 04/20/17 06:45 Labs: Abnormal Lab Results - Last 24 Hours (Table) 04/19/17 04/19/17 04/20/17 Range/Units 16:25 20:53 06:45 WBC 11.7 H (3.8-10.6) k/uL RBC 3.97 L (4.30-5.90) m/uL Hgb 11.0 L (13.0-17.5) gm/dL Hct 34.4 L (39.0-53.0) % RDW 18.9 H (11.5-15.5) % Plt Count 125 L (150-450) k/uL Neutrophils # (Manual) 9.4 H (1.3-7.7) k/uL Lymphocytes # (Manual) 0.4 L (1.0-4.8) k/uL Sodium (137-145) mmol/L BUN (9-20) mg/dL Creatinine (0.66-1.25) mg/dL Glucose (74-99) mg/dL POC Glucose (mg/dL) 170 H 230 H (75-99) mg/dL 04/20/17 04/20/17 04/20/17 Range/Units 06:45 07:58 11:52 WBC (3.8-10.6) k/uL RBC (4.30-5.90) m/uL Hgb (13.0-17.5) gm/dL Hct (39.0-53.0) % RDW (11.5-15.5) % Plt Count (150-450) k/uL Neutrophils # (Manual) (1.3-7.7) k/uL Lymphocytes # (Manual) (1.0-4.8) k/uL Sodium 135 L (137-145) mmol/L BUN 34 H (9-20) mg/dL Creatinine 1.62 H (0.66-1.25) mg/dL Glucose 175 H (74-99) mg/dL POC Glucose (mg/dL) 202 H 229 H (75-99) mg/dL Microbiology - Last 24 Hours (Table) 04/17/17 09:11 Blood Culture - Preliminary Blood No Growth after 48 hours Assessment and Plan Plan: Assessment 1 left perihilar/left upper lobe pneumonia. 2 leukocytosis secondary to above 3 blunt trauma to the right chest without evidence of any rib fractures. 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 Penile cancer status post resection 8 hyperlipidemia 9 hypertension 10 frequent falls., Rule out underlying peripheral neuropathy in addition. Plan The patient was seen and evaluated by Dr. Honeycutt. He is improved today as compared to yesterday. He is cleared for discharge from the pulmonary standpoint. We'll continue with bronchodilators and Levaquin. He'll follow-up in our office in 1-2 weeks' time. We'll repeat a chest x-ray done. He and his are both encouraged to call sooner with any recurrence of symptoms or other questions or concerns.
--- NOTE | 2017-04-21 16:31 | DS ---
DATE OF ADMISSION: 04/17/2017 DATE OF DISCHARGE: 04/20/2017 FINAL DIAGNOSES: 1. Acute left-sided pneumonia with severe sepsis present on admission of severe pain and right-sided chest pain, possibly musculoskeletal. 2. Increased WBC. 3. Anemia, normocytic anemia of chronic disease. 4. Right-sided chest pain with chest wall contusion as well as recent fall. 5. History of right-sided rib fractures possibly. 6. Thrombocytopenia secondary to EtOH. 7. Possible EtOH withdrawal. 8. Increased creatinine with mild acute renal failure with acute tubular necrosis present on admission. 9. History of recent falls. 10. Diabetes mellitus type 2. 11. Hyperlipidemia. 12. Hypertension, essential. 13. Degenerative joint disease. 14. History of pneumonia. 15. History of penile cancer surgery. 16. History of restless leg syndrome. 17. History of iron deficiency anemia. 18. History of degenerative joint disease. 19. History of EtOH. 20. FULL CODE. DISCHARGE DISPOSITION: The patient will be discharged in stable condition with guarded prognosis. HISTORY OF PRESENT ILLNESS: This 77-year-old gentleman with past medical history of as mentioned above, acute left side pneumonia, severe sepsis. The patient responded to antibiotics. Patient improved. The patient also had right-sided chest pain associated with conditions. Dr. Honeycutt saw the patient. On exam, vitals are stable. CARDIOVASCULAR: S1, S2. ABDOMEN: Soft. NERVOUS SYSTEM: No focal deficits. DISCHARGE ADVICE: 1. Diet is cardiac. 2. Activity limited until follow-up. 3. Follow-up with Dr. Rodriguez in 2 to 3 days. 4. Follow with Dr. Honeycutt as advised. Medications are as noted: 1. Ventolin HFA 2 puffs q.i.d. and p.r.n. 2. Zyloprim 100 mg p.o. daily. 3. Aspirin 81 mg p.o. 4. Symbicort 160/4.5, 2 puffs b.i.d. 5. Vitamin D 3,000 daily. 6. Vitamin B 2000 mcg p.o. daily. 7. Folic acid 1 mg daily. 8. Neurontin 300 mg p.o. daily. 9. [place] 5 mg q.6 p.r.n. 10. Levaquin 250 mg p.o. q.24 hours. 11. Lisinopril hydrochlorothiazide 20/12.5 mg p.o. daily. 12. Mevacor 40 mg q.h.s. 13. Glucophage 1000 mg p.o. daily. 14. Multivitamin 1 p.o. daily. 15. Naprosyn 1 tablet p.o. daily. 16. Requip 3 mg p.o. q.h.s. 17. Multivitamin. 18. Thiamine 100 mg p.o. daily. Once again, the patient will be discharged in a stable condition with guarded prognosis.
== END 2017-04-20 12:10 | disposition home or self-care (01) | DRG 871 ==
LOC: EC 08:47 → 5MS5E 12:49
PROVIDERS: ADMIT Hospitalist; ATTEND Hospitalist
DX: A41.9 Sepsis, unspecified organism (principal); N17.0 Acute kidney failure with tubular necrosis; J18.9 Pneumonia, unspecified organism; G91.2 (Idiopathic) normal pressure hydrocephalus; S22.31XA Fracture of one rib, right side, initial encounter for closed fracture; F10.239 Alcohol dependence with withdrawal, unspecified; R65.20 Severe sepsis without septic shock; D69.59 Other secondary thrombocytopenia; E11.22 Type 2 diabetes mellitus with diabetic chronic kidney disease; E11.42 Type 2 diabetes mellitus with diabetic polyneuropathy; E11.51 Type 2 diabetes mellitus with diabetic peripheral angiopathy without gangrene; D63.8 Anemia in other chronic diseases classified elsewhere; E78.5 Hyperlipidemia, unspecified; R29.6 Repeated falls; G25.81 Restless legs syndrome; I12.9 Hypertensive chronic kidney disease with stage 1 through stage 4 chronic kidney disease, or unspecified chronic kidney disease; M19.91 Primary osteoarthritis, unspecified site; M47.812 Spondylosis without myelopathy or radiculopathy, cervical region; D50.9 Iron deficiency anemia, unspecified; G89.29 Other chronic pain; M54.9 Dorsalgia, unspecified; N18.9 Chronic kidney disease, unspecified; Z87.01 Personal history of pneumonia (recurrent); Z85.49 Personal history of malignant neoplasm of other male genital organs; Z79.84 Long term (current) use of oral hypoglycemic drugs; Z79.82 Long term (current) use of aspirin; Z79.1 Long term (current) use of non-steroidal anti-inflammatories (NSAID); Z79.899 Other long term (current) drug therapy; Z91.81 History of falling; Z98.42 Cataract extraction status, left eye; Z98.41 Cataract extraction status, right eye; Z89.412 Acquired absence of left great toe; Y90.9 Presence of alcohol in blood, level not specified; W19.XXXA Unspecified fall, initial encounter
CPT/HCPCS: 36415; 51798; 70450; 71010; 71020; 71250; 72125; 80048; 80053; 81001; 82550; 82553; 83036; 83605; 83735; 84484; 85025; 85610; 85730; 87040; 87086; 93005; 94640

== ENCOUNTER → 2017-11-15 | Outpatient (CLI) | payer MEDICARE ==
[2017-11-15 11:34] LABS: Anisocytosis Slight; HCT 35.1 % (39.0-53.0); HGB 10.5 gm/dL (13.0-17.5); Hypochromasia Moderate; MCH 28.9 pg (25.0-35.0); MCV 96.4 fL (80.0-100.0); Macrocytosis Slight; Mean Platelet Volume 8.4; RBC 3.64 m/uL (4.30-5.90); RDW 16.8 % (11.5-15.5); WBC 7.3 k/uL (3.8-10.6)
[2017-11-15 11:37] LABS: Albumin 3.9 g/dL (3.5-5.0); Calcium 9.5 mg/dL (8.4-10.2); Potassium 5.3 mmol/L (3.5-5.1); Total Bilirubin 0.4 mg/dL (0.2-1.3); Total Protein 6.5 g/dL (6.3-8.2)
[2017-11-15 11:56] LABS: Band Neutrophils % 9 %; Eosinophils # (M) 0.37 k/uL (0-0.7); Lymphocytes # (M) 0.73 k/uL (1.0-4.8); Metamyelocytes # (M) 0.15 k/uL (0); Metamyelocytes % 2 %; Monocytes # (M) 0.07 k/uL (0-1.0); Myelocytes # (M) 0.07 k/uL (0); Myelocytes % 1 %; Neutrophils % (M) 74 %; Nucleated Red Blood Cells 0 /100 WBC (0-0); Total Cells Counted 200
[2017-11-15 12:08] LABS: Platelet Count 73 k/uL (150-450)
== END | disposition home or self-care (01) ==
LOC: LABWHC1 10:03
PROVIDERS: ATTEND Physician Assistant Medical
DX: N18.3 Chronic kidney disease, stage 3 (moderate) (principal); R94.4 Abnormal results of kidney function studies
CPT/HCPCS: 36415; 80053; 85025

== ENCOUNTER → 2017-12-24 | Outpatient (CLI) | payer MEDICARE ==
[2017-12-24 10:55] LABS: INR 1.1 (<1.2); Prothrombin Time 10.5 sec (9.0-12.0)
[2017-12-24 11:06] LABS: Albumin 4.6 g/dL (3.5-5.0); Calcium 9.9 mg/dL (8.4-10.2); Potassium 5.5 mmol/L (3.5-5.1); Total Bilirubin 0.5 mg/dL (0.2-1.3); Total Protein 7.2 g/dL (6.3-8.2)
[2017-12-24 11:10] LABS: Anisocytosis Slight; HCT 37.3 % (39.0-53.0); HGB 11.5 gm/dL (13.0-17.5); Hypochromasia Slight; MCH 29.3 pg (25.0-35.0); MCHC 30.7 g/dL (31.0-37.0); MCV 95.3 fL (80.0-100.0); Mean Platelet Volume 8.3; RBC 3.91 m/uL (4.30-5.90); RDW 16.3 % (11.5-15.5)
[2017-12-24 11:55] LABS: Platelet Count 82 k/uL (150-450)
== END | disposition home or self-care (01) ==
LOC: LABPAT 09:58
PROVIDERS: ATTEND Orthopaedic Surgery Sports Medicine
DX: Z01.812 Encounter for preprocedural laboratory examination (principal); Z79.01 Long term (current) use of anticoagulants
CPT/HCPCS: 36415; 80053; 85027; 85610; 85730; 87070

== ENCOUNTER → 2018-01-23 | Outpatient (CLI) | payer MEDICARE ==
[2018-01-23 10:50] LABS: HCT 39.9 % (39.0-53.0); HGB 12.5 gm/dL (13.0-17.5); Hypochromasia Slight; MCH 29.1 pg (25.0-35.0); MCHC 31.3 g/dL (31.0-37.0); MCV 92.9 fL (80.0-100.0); Mean Platelet Volume 8.8; RBC 4.29 m/uL (4.30-5.90); RDW 15.9 % (11.5-15.5)
[2018-01-23 10:51] LABS: Appearance,Urine Clear (Clear); Bilirubin,Urine Negative (Negative); Blood,Urine Negative (Negative); Color,Urine Light Yellow; Glucose,Urine (UA) Negative (Negative); INR 1.1 (<1.2); Ketones,Urine Negative (Negative); Leukocyte Esterase,Urine Negative (Negative); Nitrite,Urine Negative (Negative); Protein,Urine Trace (Negative); Prothrombin Time 10.7 sec (9.0-12.0); Specific Gravity,Urine 1.009 (1.001-1.035); Urobilinogen,Urine <2.0 mg/dL (<2.0)
[2018-01-23 11:05] LABS: Albumin 4.9 g/dL (3.5-5.0); Calcium 10.1 mg/dL (8.4-10.2); Potassium 4.8 mmol/L (3.5-5.1); Total Bilirubin 0.7 mg/dL (0.2-1.3); Total Protein 7.8 g/dL (6.3-8.2)
[2018-01-23 11:09] LABS: Platelet Count 91 k/uL (150-450)
[2018-01-23 11:35] LABS: Band Neutrophils % 10 %; Eosinophils # (M) 0.55 k/uL (0-0.7); Lymphocytes # (M) 1.84 k/uL (1.0-4.8); Metamyelocytes # (M) 0.18 k/uL (0); Metamyelocytes % 2 %; Monocytes # (M) 0.09 k/uL (0-1.0); Myelocytes # (M) 0.55 k/uL (0); Myelocytes % 6 %; Neutrophils % (M) 57 %; Nucleated Red Blood Cells 1 /100 WBC (0-0); Total Cells Counted 200; Toxic Vacuolation Present; WBC 9.2 k/uL (3.8-10.6)
[2018-01-23 11:36] LABS: Polychromasia Present
== END | disposition home or self-care (01) ==
LOC: LABPAT 10:10
PROVIDERS: ATTEND Orthopaedic Surgery Sports Medicine
DX: Z01.812 Encounter for preprocedural laboratory examination (principal)
CPT/HCPCS: 80053; 81003; 85025; 85610

== ENCOUNTER → 2018-04-04 | Outpatient (CLI) | payer MEDICARE ==
--- NOTE | 2018-04-04 13:42 | US ---
EXAMINATION TYPE: US venous doppler duplex LE RT DATE OF EXAM: 04/04/2018 1:02 PM COMPARISON: NONE CLINICAL HISTORY: R60.9 EDEMA,M79.661 PAIN IN T LOWER LEG. SIDE PERFORMED: Right TECHNIQUE: The lower extremity deep venous system is examined utilizing real time linear array sonog ismael with graded compression, doppler sonography and color-flow sonography. VESSELS IMAGED: External Iliac Vein (EIV) Common Femoral Vein Deep Femoral Vein Greater Saphenous Vein * Femoral Vein Popliteal Vein Proximal Calf Veins (* superficial vessels) Right Leg: Negative for DVT IMPRESSION: Right lower extremity venous ultrasound negative for deep venous thrombosis.
== END | disposition home or self-care (01) ==
LOC: RADUSWWP 12:42
PROVIDERS: ATTEND Family Medicine
DX: M79.661 Pain in right lower leg (principal); R60.9 Edema, unspecified

== ENCOUNTER 2018-05-13 05:45 | Day surgery (SDC) | payer MEDICARE ==
[2018-05-12 08:33] VITALS: BMI 23.8
[~2018-05-13 05:45] MED LIST: LACTATED RINGERS 1,000 ML IV SCH; LIDOCAINE 1% 20 ML VIAL (10MG/ML) FOR IV START INTRADERMA PRN
[2018-05-13 06:36] VITALS: TEMP 97.7
[2018-05-13 06:40] LABS: Glucose,Whole Blood 88 mg/dL (75-99)
[2018-05-13] MEDS ORDERED: PROPOFOL 10 MG/ML 20 ML VIAL IV ONE (07:04)
[2018-05-13 07:35] VITALS: RESP 18
[2018-05-13 07:56] VITALS: BP 142/61; PULSE 56
--- NOTE | 2018-05-13 08:15 | PCN ---
PROCEDURE NOTE DATE OF SERVICE: 05/13/2018 PROCEDURE: Bone marrow aspirate and biopsy. PREOPERATIVE DIAGNOSIS: Myeloproliferative disorder. POSTOPERATIVE DIAGNOSIS: Myeloproliferative disorder. ANESTHESIA: Local with IV systemic sedation. DETAILS: Utilizing sterile technique, the skin overlying the right iliac crest was prepared with Betadine and alcohol. After adequate sterile draping, local anesthesia and systemic sedation, size 11 x 4 inch Jamshidi needle was utilized to access the periosteum with ease. A total of 10 mL of aspirate and crushed 4 mm core biopsies were obtained. The patient tolerated the procedure very well. There was no immediate procedure related complications. TOTAL BLOOD LOSS: Less than 1 mL. RESULTS: Pending. MMODL / IJN: [id number] /
[2018-05-13 08:17] LABS: Anisocytosis Slight; HCT 33.9 % (39.0-53.0); HGB 10.9 gm/dL (13.0-17.5); MCH 28.6 pg (25.0-35.0); MCHC 32.3 g/dL (31.0-37.0); MCV 88.6 fL (80.0-100.0); Mean Platelet Volume 9.3; RBC 3.82 m/uL (4.30-5.90); RDW 18.2 % (11.5-15.5); WBC 7.3 k/uL (3.8-10.6)
[2018-05-13 08:40] LABS: Platelet Count 80 k/uL (150-450)
[2018-05-13 08:47] LABS: Band Neutrophils % 10 %; Blast Cells # (M) 0.07 k/uL (0); Eosinophils # (M) 0.15 k/uL (0-0.7); Lymphocytes # (M) 1.31 k/uL (1.0-4.8); Metamyelocytes # (M) 0.07 k/uL (0); Metamyelocytes % 1 %; Myelocytes # (M) 0.07 k/uL (0); Myelocytes % 1 %; Neutrophils % (M) 69 %; Nucleated Red Blood Cells 0 /100 WBC (0-0); Total Cells Counted 200
== END 2018-05-13 08:01 | disposition home or self-care (01) ==
LOC: OR 05:45
PROVIDERS: ATTEND Internal Medicine Hematology & Oncology
DX: C94.6 Myelodysplastic disease, not elsewhere classified (principal); D64.9 Anemia, unspecified; D69.6 Thrombocytopenia, unspecified; E11.9 Type 2 diabetes mellitus without complications; G60.9 Hereditary and idiopathic neuropathy, unspecified; I10 Essential (primary) hypertension; E78.2 Mixed hyperlipidemia; M71.9 Bursopathy, unspecified; G47.62 Sleep related leg cramps; Z77.22 Contact with and (suspected) exposure to environmental tobacco smoke (acute) (chronic); Z79.84 Long term (current) use of oral hypoglycemic drugs; Z79.1 Long term (current) use of non-steroidal anti-inflammatories (NSAID); Z79.899 Other long term (current) drug therapy; Z88.1 Allergy status to other antibiotic agents; Z85.89 Personal history of malignant neoplasm of other organs and systems
CPT/HCPCS: 85025; 38222; J2704

== ENCOUNTER → 2018-06-02 | Outpatient (CLI) | payer MEDICARE ==
--- NOTE | 2018-06-02 16:52 | BD ---
EXAMINATION TYPE: Axial Bone Density DATE OF EXAM: 06/02/2018 COMPARISON: NONE CLINICAL HISTORY: 78-year-old male osteoporosis Height: 6 FT Weight: 182 FRAX RISK QUESTIONS: HISTORY OF: Active: YES MEDICATIONS: Additional Medications: METFORMIN, LOVASTATIN, ROPINIROLE, GABAPENTIN, TRAZODONE, AMLOPURONOL, PRETTY RIL, VIT B, VIT D3 Additional History: EXAM MEASUREMENTS: Bone mineral densitometry was performed using the [employer] System. Bone mineral density as measured about the Lumbar spine is: ----- L1-L4(G/cm2): 1.567 T Score Values are as follows: ----- L2: 2.5 ----- L3: 3.3 ----- L4: 4.9 ----- L1-L4: 3.2 BASELINE Bone mineral density about the R hip (g/cm2): 0.877 Bone mineral density about the L hip (g/cm2): 0.951 T Score values are as follows: -----R Neck: -1.2 -----L Neck: -0.6 -----R Total: -1.0 -----L Total: -0.3 BASELINE IMPRESSION: Osteopenia (T Score between -2.5 and -1). There is slightly increased risk of fracture and the patient may be considered for treatment. Re-Screen 2-5 years. NOTE: T-SCORE=SD OF THE YOUNG ADULT MEAN.
== END | disposition home or self-care (01) ==
LOC: RADBDWWP 13:16
PROVIDERS: ATTEND Internal Medicine Hematology & Oncology
DX: M85.80 Other specified disorders of bone density and structure, unspecified site (principal)
CPT/HCPCS: 77080

== ENCOUNTER 2018-08-27 19:05 | Inpatient (IN) | payer MEDICARE ==
[2018-08-27] MEDS ORDERED: SODIUM CHLORIDE 0.9% 1,000 ML IV STA (19:24)
--- NOTE | 2018-08-27 19:39 | ED ---
Fall HPI - General Chief Complaint: Fall Stated Complaint: Fall Time Seen by Provider: 08/27/18 19:17 Source: patient, family, EMS, RN notes reviewed Mode of arrival: EMS Limitations: no limitations - History of Present Illness Initial Comments: This is a 78-year-old male who presents to the emergency department with chief complaint of falls. Patient states over the past 2 weeks he has had an increase in dizziness. He states that he fell 3 times today. He states he does not know why he fell. He does report hitting his head each time he fell. At this time he does complain of neck pain. Denies any other injuries or trauma. Denies back pain. Denies loss of consciousness, nausea or vomiting. Patient is not on any blood thinners. He denies chest pain or shortness of breath. - Related Data Home Medications Medication Instructions Recorded Confirmed Lovastatin [Mevacor] 40 mg PO QAM 02/18/16 08/27/18 Allopurinol [Zyloprim] 300 mg PO DAILY 04/17/17 08/27/18 Cholecalciferol [Vitamin D3] 1,000 unit PO DAILY 04/17/17 08/27/18 Gabapentin [Neurontin] 300 mg PO HS 04/17/17 08/27/18 metFORMIN HCL [Glucophage] 1,000 mg PO BID 01/02/18 08/27/18 QUEtiapine [SEROquel] 50 mg PO HS 08/27/18 08/27/18 Temazepam [Restoril] 7.5 mg PO HS PRN 08/27/18 08/27/18 Thiamine [Vitamin B-1] 100 mg PO DAILY 08/27/18 08/27/18 Allergies Allergy/AdvReac Type Severity Reaction Status Date / Time amoxicillin trihydrate Allergy Rash/Hives Verified 08/27/18 19:45 [From Augmentin] potassium clavulanate Allergy Rash/Hives Verified 08/27/18 19:45 [From Augmentin] Review of Systems ROS Statement: Those systems with pertinent positive or pertinent negative responses have been documented in the HPI. ROS Other: All systems not noted in ROS Statement are negative. Past Medical History Past Medical History: Cancer, Diabetes Mellitus, Hyperlipidemia, Hypertension, Osteoarthritis (OA), Pneumonia, Vascular Disorder Additional Past Medical History / Comment(s): PAST HISTORY- R knee/leg pain/ swelling,hx penile cancer, neuropathy bilateral lower legs/feet, RLS, hx gout, iron deficiency . History of Any Multi-Drug Resistant Organisms: None Reported Past Surgical History: Joint Replacement, Orthopedic Surgery Additional Past Surgical History / Comment(s): Penile resection, great toe left foot amputated, mukul cataract removal with lens implants, colonoscopy. RIGHT ELBOW SURGERY, RT TKA Past Anesthesia/Blood Transfusion Reactions: No Reported Reaction Past Psychological History: No Psychological Hx Reported Smoking Status: Never smoker Past Alcohol Use History: None Reported Past Drug Use History: None Reported - Past Family History Father Family Medical History: Cancer Additional Family Medical History / Comment(s): Father had lung cancer. Mother Family Medical History: Coronary Artery Disease (CAD) General Exam - General Exam Comments Initial Comments: General: Awake and alert, well-developed; in no apparent distress. Patient is lying comfortably on ED stretcher. HEENT: Head atraumatic, normocephalic. Pupils are equal, round and reactive to light. Extraocular movements intact. Oropharynx moist without erythema or exudate. Neck: Supple. Normal ROM. No tenderness. Cardiovascular: Regular rate and rhythm. No murmurs, rubs or gallops. Chest symmetrical. Radial and pedal pulses are 2+ equal and palpable bilaterally. Respiratory: Lungs clear to auscultation bilaterally. No wheezes, rales or rhonchi. Normal respiratory effort with no use of accessory muscles. Abdomen: Soft, non-tender, non-distended. No rigidity, rebound or guarding. Normal bowel sounds in all 4 quadrants. Musculoskeletal: Normal ROM, no tenderness bilateral upper and lower extremities. Skin: [place], warm and dry with a small superficial abrasion to the left elbow. Hyperpigmentation without edema bilaterally lower extremities. Neurological: Alert and oriented x3. CN II-XII grossly intact. Speech is fluent and answers are appropriate. No focal neuro deficits. Psychiatric: Normal mood and affect. No overt signs of depression or anxiety noted. Limitations: no limitations Course Vital Signs 08/27/18 08/27/18 19:08 20:27 Temperature 98.2 F Pulse Rate 105 H 101 H Respiratory 18 18 Rate Blood Pressure 151/101 125/65 O2 Sat by Pulse 95 97 Oximetry Medical Decision Making - Medical Decision Making This is a 70-year-old male who presents to the emergency department with chief complaint of multiple falls. Patient reports feeling dizzy for the past 2 weeks. He states today he has fallen 3 times. He is unsure why he is falling. He does report striking his head but denies loss of consciousness, nausea or vomiting, headache. He does report neck pain. A computed tomography scan of the brain and C-spine were obtained which revealed no acute abnormalities. EKG was obtained and compared to previous EKGs. EKG changes were noted with ST segment depression seen in multiple leads. Patient denied any chest pain or shortness of breath. However, troponin is slightly elevated at 0.043. CBC reveals low hemoglobin, however this is consistent with previous lab studies. Case was discussed with attending physician, Dr. Robin. Patient will be admitted to Dr. Tucker with diagnoses of elevated troponin, EKG changes and multiple falls. Patient is in no acute distress and vitals are stable. He is in agreement for admission. - Lab Data Result diagrams: 08/27/18 19:25 08/27/18 19:25 Lab Results 08/27/18 08/27/18 08/27/18 Range/Units 19:25 19:25 19:25 WBC 9.6 (3.8-10.6) k/uL RBC 3.30 L (4.30-5.90) m/uL Hgb 10.3 L (13.0-17.5) gm/dL Hct 31.9 L (39.0-53.0) % MCV 96.5 (80.0-100.0) fL MCH 31.1 (25.0-35.0) pg MCHC 32.2 (31.0-37.0) g/dL RDW 17.9 H (11.5-15.5) % Plt Count 34 L (150-450) k/uL Neutrophils % 92 % Lymphocytes % 4 % Monocytes % 1 % Eosinophils % 1 % Basophils % 0 % Neutrophils # 8.9 H (1.3-7.7) k/uL Lymphocytes # 0.4 L (1.0-4.8) k/uL Monocytes # 0.1 (0-1.0) k/uL Eosinophils # 0.1 (0-0.7) k/uL Basophils # 0.0 (0-0.2) k/uL Hypochromasia Slight Anisocytosis Slight Macrocytosis Slight PT (9.0-12.0) sec INR (<1.2) APTT (22.0-30.0) sec Sodium 133 L (137-145) mmol/L Potassium 4.5 (3.5-5.1) mmol/L Chloride 99 (98-107) mmol/L Carbon Dioxide 22 (22-30) mmol/L Anion Gap 12 mmol/L BUN 24 H (9-20) mg/dL Creatinine 1.14 (0.66-1.25) mg/dL Est GFR (CKD-EPI)AfAm 71 (>60 ml/min/1.73 sqM) Est GFR (CKD-EPI)NonAf 62 (>60 ml/min/1.73 sqM) Glucose 184 H (74-99) mg/dL Calcium 8.9 (8.4-10.2) mg/dL Phosphorus 2.7 (2.5-4.5) mg/dL Magnesium 1.4 L (1.6-2.3) mg/dL Total Bilirubin 1.1 (0.2-1.3) mg/dL AST 22 (17-59) U/L ALT 16 L (21-72) U/L Alkaline Phosphatase 79 (38-126) U/L Total Creatine Kinase 39 L (55-170) U/L CK-MB (CK-2) 0.7 (0.0-2.4) ng/mL CK-MB (CK-2) Rel Index 1.8 Troponin I 0.043 H* (0.000-0.034) ng/mL Total Protein 6.0 L (6.3-8.2) g/dL Albumin 3.4 L (3.5-5.0) g/dL 08/27/18 Range/Units 19:25 WBC (3.8-10.6) k/uL RBC (4.30-5.90) m/uL Hgb (13.0-17.5) gm/dL Hct (39.0-53.0) % MCV (80.0-100.0) fL MCH (25.0-35.0) pg MCHC (31.0-37.0) g/dL RDW (11.5-15.5) % Plt Count (150-450) k/uL Neutrophils % % Lymphocytes % % Monocytes % % Eosinophils % % Basophils % % Neutrophils # (1.3-7.7) k/uL Lymphocytes # (1.0-4.8) k/uL Monocytes # (0-1.0) k/uL Eosinophils # (0-0.7) k/uL Basophils # (0-0.2) k/uL Hypochromasia Anisocytosis Macrocytosis PT 10.4 (9.0-12.0) sec INR 1.1 (<1.2) APTT 25.1 (22.0-30.0) sec Sodium (137-145) mmol/L Potassium (3.5-5.1) mmol/L Chloride (98-107) mmol/L Carbon Dioxide (22-30) mmol/L Anion Gap mmol/L BUN (9-20) mg/dL Creatinine (0.66-1.25) mg/dL Est GFR (CKD-EPI)AfAm (>60 ml/min/1.73 sqM) Est GFR (CKD-EPI)NonAf (>60 ml/min/1.73 sqM) Glucose (74-99) mg/dL Calcium (8.4-10.2) mg/dL Phosphorus (2.5-4.5) mg/dL Magnesium (1.6-2.3) mg/dL Total Bilirubin (0.2-1.3) mg/dL AST (17-59) U/L ALT (21-72) U/L Alkaline Phosphatase (38-126) U/L Total Creatine Kinase (55-170) U/L CK-MB (CK-2) (0.0-2.4) ng/mL CK-MB (CK-2) Rel Index Troponin I (0.000-0.034) ng/mL Total Protein (6.3-8.2) g/dL Albumin (3.5-5.0) g/dL - EKG Data EKG Comments: 19:10:07 sinus tachycardia, ST depression, consider subendocardial injury. Abnormal EKG. Ventricular rate 108 bpm, MT interval 160, QRS duration 88, QT/ QTC 338/452. EKG compared to previous and ST depression is new. EKG was reviewed by attending physician, Dr. Robin. - Radiology Data Radiology results: report reviewed Chest x-ray impression: Mild pulmonary fibrosis. There is clearing of small pleural effusions compared to old exam. CT brain and C-spine without contrast impression: Cerebral atrophy. Chronic right maxillary sinusitis. No change. Slight loss of height of cervical vertebral bodies could relate osteomalacia. No acute fracture seen. No change compared to old exam. As read by Dr. Mccloud. Disposition Clinical Impression: Multiple falls, Acute electrocardiogram changes, Elevated troponin Disposition: ADMITTED IP TO THIS HOSP Condition: Good Is patient prescribed a controlled substance at d/c from ED?: No Referrals: Hamilton Rodriguez DO [Primary Care Provider] - 1-2 days Time of Disposition: 21:02
[2018-08-27 20:12] LABS: Albumin 3.4 g/dL (3.5-5.0); Anisocytosis Slight; Basophils % (A) 0 %; Calcium 8.9 mg/dL (8.4-10.2); Eosinophils # (A) 0.1 k/uL (0-0.7); Eosinophils % (A) 1 %; HCT 31.9 % (39.0-53.0); HGB 10.3 gm/dL (13.0-17.5); Hypochromasia Slight; Lymphocytes # (A) 0.4 k/uL (1.0-4.8); Lymphocytes % (A) 4 %; MCH 31.1 pg (25.0-35.0); MCHC 32.2 g/dL (31.0-37.0); MCV 96.5 fL (80.0-100.0); Macrocytosis Slight; Magnesium 1.4 mg/dL (1.6-2.3); Mean Platelet Volume 8.3; Monocytes # (A) 0.1 k/uL (0-1.0); Monocytes % (A) 1 %; Neutrophils # (A) 8.9 k/uL (1.3-7.7); Neutrophils % (A) 92 %; Phosphorus 2.7 mg/dL (2.5-4.5); Potassium 4.5 mmol/L (3.5-5.1); RDW 17.9 % (11.5-15.5); Total Bilirubin 1.1 mg/dL (0.2-1.3); WBC 9.6 k/uL (3.8-10.6)
[2018-08-27 20:14] LABS: Platelet Count 34 k/uL (150-450)
[2018-08-27 20:22] LABS: INR 1.1 (<1.2); Partial Thromboplastin Time 25.1 sec (22.0-30.0); Prothrombin Time 10.4 sec (9.0-12.0)
--- NOTE | 2018-08-27 20:26 | CT ---
EXAMINATION TYPE: CT brain chester wo con DATE OF EXAM: 08/27/2018 COMPARISON: 04/17/2017 HISTORY: Fall. CT DLP: 1719.9 mGycm Automated exposure control for dose reduction was used. TECHNIQUE: CT scan of the head and cervical spine are performed without contrast. FINDINGS: There is cerebral cortical atrophy. There is no mass effect nor midline shift. There is n o sign of intracranial hemorrhage. There is extensive mucosal thickening right maxillary sinus. The c alvarium is intact. The cervical vertebra have normal alignment. There is some biconcave change in the C5 and C6 and C7 v ertebral bodies. The facet joints are intact. The skull base appears intact. IMPRESSION: Cerebral atrophy. Chronic right maxillary sinusitis. No change. Slight loss of height of cervical vertebral bodies could relate to osteomalacia. No acute fracture se en. No change compared to old exam.
[2018-08-27 20:40] LABS: Creatine Kinase MB 0.7 ng/mL (0.0-2.4)
[2018-08-27 20:49] LABS: Troponin I 0.043 ng/mL (0.000-0.034)
--- NOTE | 2018-08-27 20:49 | XR ---
EXAMINATION TYPE: XR chest 2V DATE OF EXAM: 08/27/2018 COMPARISON: 02/01/2018 HISTORY: Dizziness TECHNIQUE: Frontal and lateral views of the chest are obtained. FINDINGS: There is no heart failure nor confluent pneumonic infiltrate. There is slight coarsening o f the lung markings. Heart size is normal. Costophrenic angles are clear. Thoracic aorta is atheromat ous. Bony thorax is intact. IMPRESSION: Mild pulmonary fibrosis. There is clearing of small pleural effusions compared to old ex am.
[2018-08-27] MEDS ORDERED: MAGNESIUM OXIDE 400 MG TAB PO STA (20:57)
[2018-08-27] MEDS ORDERED: ACETAMINOPHEN TAB 325 MG TAB PO PRN (21:03)
[2018-08-27] MEDS ORDERED: NALOXONE 0.4 MG/ML 1 ML VIAL IV PRN (21:03)
[2018-08-27] MEDS: SODIUM CHLORIDE 0.9% 1,000 ML IV SCH (21:31)
[2018-08-28 05:39] LABS: Glucose,Whole Blood 132 mg/dL (75-99)
[2018-08-28] MEDS: INSULIN ASPART 100 UNIT/ML 1 ML 10 ML VIAL SQ SCH ×4 (05:40→20:00)
[2018-08-28] MEDS ORDERED: Magnesium Replacement Protocol 1 EACH MISC MISCELLANE PRN (06:31)
--- NOTE | 2018-08-28 08:43 | P.CRDCN ---
History of Present Illness Consult date: 08/28/18 Requesting physician: Feliz Tucker Reason for Consult (text): abnormal troponin Chief complaint: falls, weakness History of present illness: This is a pleasant 78-year-old gentleman with history of hypertension , diabetes, hyperlipidemia,he also has some type of blood disorder for which she follows with Dr. Mathur in the office.he presents to the hospital on this occasion with frequent falls at home. According to the patient, he states that he has been very weak at home and has had a significant change in his energy levels. He feels tired all the time. He states that he has had multiple falls and once he falls was unable to get up. Patient does have mild symptoms of feeling as though he may pass out before he falls down, but when he hits the ground he is awake. He does not lose consciousness. He is too weak however once he hits the ground to stand back up. He denies any chest discomfort, no palpitations. Laboratory data on admission here white blood cell count 9.6, hemoglobin 10.3, platelet count 34.Sodium 133, potassium 4.5, BUN 24, creatinine 1.1.magnesium level I.4 on admission, 1.5 this morning.troponins 0.043, 0.041, 0.040.A CAT scan of the head and cervical spine was performed which revealed cerebral atrophy. No acute fracture.chest x-ray showed mild pulmonary fibrosis.EKG on arrival showed a sinus tachycardia with ST depression noted in the lateral leads.blood pressure on arrival 150/100 with a heart rate of 100, 95% on room air.at the time of my examination this morning, patient states he feels very tired and has no energy, he denies any chest discomfort, his breathing is stable. He did have an echocardiogram with Doppler study performed in January of this year which revealed an ejection fraction of 45-50%. Severe pulmonary hypertension. Past Medical History Past Medical History: Cancer, Diabetes Mellitus, Hyperlipidemia, Hypertension, Osteoarthritis (OA), Pneumonia, Vascular Disorder Additional Past Medical History / Comment(s): PAST HISTORY- R knee/leg pain/ swelling,hx penile cancer, neuropathy bilateral lower legs/feet, RLS, hx gout, iron deficiency . History of Any Multi-Drug Resistant Organisms: None Reported Past Surgical History: Joint Replacement, Orthopedic Surgery Additional Past Surgical History / Comment(s): Penile resection, great toe left foot amputated, mukul cataract removal with lens implants, colonoscopy. RIGHT ELBOW SURGERY, RT TKA Past Anesthesia/Blood Transfusion Reactions: No Reported Reaction Past Psychological History: No Psychological Hx Reported Additional Psychological History / Comment(s): Pt resides with his spouse. He uses a cane to ambulate and has leg braces. He no longer drives. His spouse drives. Smoking Status: Never smoker Past Alcohol Use History: None Reported Past Drug Use History: None Reported - Past Family History Father Family Medical History: Cancer Additional Family Medical History / Comment(s): Father had lung cancer. Mother Family Medical History: Coronary Artery Disease (CAD) Medications and Allergies Home Medications Medication Instructions Recorded Confirmed Type Lovastatin [Mevacor] 40 mg PO QAM 02/18/16 08/27/18 History Allopurinol [Zyloprim] 300 mg PO DAILY 04/17/17 08/27/18 History Cholecalciferol [Vitamin D3] 1,000 unit PO DAILY 04/17/17 08/27/18 History Gabapentin [Neurontin] 300 mg PO HS 04/17/17 08/27/18 History metFORMIN HCL [Glucophage] 500 mg PO BID 01/02/18 08/28/18 History QUEtiapine [SEROquel] 50 mg PO HS 08/27/18 08/27/18 History Temazepam [Restoril] 7.5 mg PO HS PRN 08/27/18 08/27/18 History Thiamine [Vitamin B-1] 100 mg PO DAILY 08/27/18 08/27/18 History Allergies Allergy/AdvReac Type Severity Reaction Status Date / Time amoxicillin trihydrate Allergy Rash/Hives Verified 08/27/18 19:45 [From Augmentin] potassium clavulanate Allergy Rash/Hives Verified 08/27/18 19:45 [From Augmentin] Physical Exam Vitals: Vital Signs Temp Pulse Pulse Resp BP BP Pulse Ox 08/28/18 03:01 97 F L 82 18 147/80 95 08/28/18 02:04 97 F L 90 18 156/75 98 08/28/18 00:46 78 18 113/66 98 08/27/18 23:50 97.2 F L 88 18 142/90 98 08/27/18 22:53 85 16 127/60 98 08/27/18 22:20 87 18 129/70 98 08/27/18 21:32 85 18 134/82 98 08/27/18 20:27 101 H 18 125/65 97 08/27/18 19:08 98.2 F 105 H 18 151/101 95 Intake and Output 08/27/18 08/28/18 08/28/18 22:59 06:59 14:59 Intake Total 300 Balance 300 Intake: IV 300 Sodium Chloride 0.9% 1, 300 000 ml @ 75 mls/hr IV . [id number] [facility] Rx#:[id number] Other: Weight 77.111 kg 77 kg PHYSICAL EXAMINATION: GENERAL: This is a 78-year-old gentleman in no acute distress at the time of my examination HEENT: Head is atraumatic, normocephalic. Pupils equal, round. Sclera anicteric. Conjunctiva are clear. Mucous membranes of the mouth are moist. Neck is supple. There is no elevated jugular venous pressure.No carotid bruit is heard. HEART EXAMINATION: [Heart S1, S2 normal. No murmur or gallop heard.] CHEST EXAMINATION:[ Lungs are clear to auscultation and precussion. No chest wall tenderness is noted on palpation or with deep breathing.] ABDOMEN: [ Soft, nontender. Bowel sounds are heard. No organomegaly noted]. EXTREMITIES:[ 2+ peripheral pulses with no evidence of peripheral edema and no calf tenderness noted]. NEUROLOGIC [patient is awake, alert and oriented X3.] . Results 08/27/18 19:25 08/27/18 19:25 Cardiac Enzymes 08/27/18 08/27/18 08/28/18 Range/Units 19:25 19:25 02:18 AST 22 (17-59) U/L CK-MB (CK-2) 0.7 (0.0-2.4) ng/mL Troponin I 0.043 H* 0.041 H* (0.000-0.034) ng/mL 08/28/18 Range/Units 06:56 AST (17-59) U/L CK-MB (CK-2) (0.0-2.4) ng/mL Troponin I 0.040 H* (0.000-0.034) ng/mL Coagulation 08/27/18 Range/Units 19:25 PT 10.4 (9.0-12.0) sec APTT 25.1 (22.0-30.0) sec CBC 08/27/18 Range/Units 19:25 WBC 9.6 (3.8-10.6) k/uL RBC 3.30 L (4.30-5.90) m/uL Hgb 10.3 L (13.0-17.5) gm/dL Hct 31.9 L (39.0-53.0) % Plt Count 34 L (150-450) k/uL Comprehensive Metabolic Panel 08/27/18 Range/Units 19:25 Sodium 133 L (137-145) mmol/L Potassium 4.5 (3.5-5.1) mmol/L Chloride 99 (98-107) mmol/L Carbon Dioxide 22 (22-30) mmol/L BUN 24 H (9-20) mg/dL Creatinine 1.14 (0.66-1.25) mg/dL Glucose 184 H (74-99) mg/dL Calcium 8.9 (8.4-10.2) mg/dL AST 22 (17-59) U/L ALT 16 L (21-72) U/L Alkaline Phosphatase 79 (38-126) U/L Total Protein 6.0 L (6.3-8.2) g/dL Albumin 3.4 L (3.5-5.0) g/dL Current Medications Generic Name Dose Route Start Last Admin Trade Name Freq PRN Reason Stop Dose Admin Acetaminophen 650 mg 08/27/18 21:03 Tylenol Tab PO Q6HR PRN Mild Pain or Fever > 100.5 Acetaminophen/Codeine Phosphate 1 each 08/27/18 21:03 Tylenol #3 PO Q4HR PRN Moderate Pain Sodium Chloride 1,000 mls @ 75 mls/hr 08/27/18 21:15 08/27/18 21:31 Saline 0.9% IV 75 mls/hr .[id number] BURKE Administration Insulin Aspart 0 unit 08/28/18 07:30 08/28/18 05:40 Novolog SQ Not Given ACHS [facility] Protocol Metformin HCl 500 mg 08/28/18 07:30 Glucophage PO BID-W/MEALS [facility] Miscellaneous Information 1 each 08/28/18 06:31 Magnesium Per Protocol MISCELLANE DAILY PRN Per Protocol Protocol Morphine Sulfate 4 mg 08/27/18 21:03 Morphine Sulfate (Inj) IV Q4HR PRN Severe Pain Naloxone HCl 0.2 mg 08/27/18 21:03 Narcan IV Q2M PRN Opioid Reversal Intake and Output 08/27/18 08/28/18 08/28/18 22:59 06:59 14:59 Intake Total 300 Balance 300 Intake: IV 300 Sodium Chloride 0.9% 1, 300 000 ml @ 75 mls/hr IV . [id number] [facility] Rx#:[id number] Other: Weight 77.111 kg 77 kg 08/27/18 19:25 08/27/18 19:25 EKG Interpretations (text) EKG shows a sinus tachycardia with ST depression noted in the lateral leads. Assessment and Plan Plan: assessment and plan #1frequent falls with associated mild lightheadedness and near-syncope #2Hypertension #3 diabetes #4hyperlipidemia #5 thrombocytopenia #6 abnormal troponins, not consistent with acute coronary syndrome with no significant rise and fall pattern. Plan We will obtain an echocardiogram with Doppler study. We will also check orthostatic heart rate and blood pressure every shift. Continue to monitor for any tachycardia or bradycardia arrhythmias.We will also obtain a d- dimer.further recommendations to follow. DNP note has been reviewed, I agree with a documented findings and plan of care. Patient was seen and examined.
[2018-08-28] MEDS: metFORMIN 500 MG TAB PO SCH ×2 (09:08→17:11)
[2018-08-28 11:33] LABS: Hemoglobin A1C 6.6 % (4.0-6.0)
[2018-08-28 11:44] LABS: Glucose,Whole Blood 142 mg/dL (75-99)
[2018-08-28] MEDS: SODIUM CHLORIDE 0.9% 1,000 ML IV SCH ×2 (11:44→23:55)
[2018-08-28] MEDS: Acetaminophen-Codeine 300-30mg TAB PO PRN ×2 (15:09→19:37)
[2018-08-28 17:22] LABS: Glucose,Whole Blood 216 mg/dL (75-99)
--- NOTE | 2018-08-28 18:19 | ECHOF ---
Referral Reason:abn trop MEASUREMENTS -------- HEIGHT: 180.3 cm WEIGHT: 76.7 kg BP: IVSd: 0.8 cm (0.6 - 1.1) LVIDd: 5.5 cm (3.9 - 5.3) LVPWd: 0.9 cm (0.6 - 1.1) IVSs: 1.1 cm LVIDs: 4.2 cm LVPWs: 1.0 cm Ao Diam: 3.1 cm (2.0 - 3.7) AV Cusp: 2.2 cm (1.5 - 2.6) LA Diam: 3.0 cm (2.7 - 3.8) MV EXCURSION: 21.258 mm (> 18.000) MV EF SLOPE: 116 mm/s (70 - 150) EPSS: 1.8 cm MV E Darci: 1.20 m/s MV DecT: 114 ms MV A Darci: 0.94 m/s MV E/A Ratio: 1.28 AV maxP.84 mmHg AV meanP.46 mmHg RAP: 5.00 mmHg RVSP: 10.49 mmHg FINDINGS -------- Resting bradycardia (HR<60bpm). This was a technically difficult study with suboptimal views. The left ventricular size is normal. Left ventricular wall thickness is normal. Overall left vent ricular systolic function is low-normal with, an EF between 50 - 55 %. The right ventricle is normal in size and function. The left atrium is normal in size. The right atrium is normal in size. Lumason used Aortic valve is trileaflet and is mildly thickened. There is mild aortic valve sclerosis. Peak/me an gradient across the Aortic Valve is 12.84mmHg / 7.46mmHg. The mitral valve leaflets are mildly thickened. There is trace mitral regurgitation. Trace tricuspid regurgitation present. The right ventricular systolic pressure, as measured by Dopp ler, is 10.49mmHg. Pulmonic valve appears structurally normal. The aortic root size is normal. The pericardium is normal. CONCLUSIONS -------- 1. Resting bradycardia (HR<60bpm). 2. This was a technically difficult study with suboptimal views. 3. The left ventricular size is normal. 4. Left ventricular wall thickness is normal. 5. Overall left ventricular systolic function is low-normal with, an EF between 50 - 55 %. 6. The right ventricle is normal in size and function. 7. The left atrium is normal in size. 8. The right atrium is normal in size. 9. Lumason used 10. Aortic valve is trileaflet and is mildly thickened. 11. There is mild aortic valve sclerosis. 12. Peak/mean gradient across the Aortic Valve is 12.84mmHg / 7.46mmHg. 13. The mitral valve leaflets are mildly thickened. 14. There is trace mitral regurgitation. 15. Trace tricuspid regurgitation present. 16. The right ventricular systolic pressure, as measured by Doppler, is 10.49mmHg. 17. Pulmonic valve appears structurally normal. 18. The aortic root size is normal. 19. The pericardium is normal. [employer]: Kristy Du RDCS
--- NOTE | 2018-08-28 19:03 | EEG ---
ELECTROENCEPHALOGRAM REPORT DATE OF SERVICE: 08/28/2018. REASON FOR TESTING: Dizziness. DESCRIPTION OF THE PROCEDURE: This EEG was performed using a 21 channel digital electroencephalograph, following international 10-20 system. DESCRIPTION OF THE RECORDING: From the beginning of the tracing, and with patient's eyes closed, the background rhythm was mostly consisting of 8 Hz alpha frequency in the posterior occipital leads. No obvious asymmetry is seen. Photic stimulation was performed with a minimal driving response seen. No pathological waves were elicited. Hyperventilation was not performed. Frequent muscle artifacts and occasional movement artifacts are seen. The patient remains awake throughout the tracing. No epileptiform discharges were seen. His EKG lead showed a regular rate and rhythm. INTERPRETATION: This awake EEG can be considered within normal limits. There was no asymmetry seen. No epileptiform discharges were noticed. The absence of epileptiform discharges does not rule out the diagnosis of epilepsy; therefore clinical correlation is recommended. MMMEMO / KENDRA: [id number] /
[2018-08-28 20:01] LABS: Glucose,Whole Blood 171 mg/dL (75-99)
--- NOTE | 2018-08-29 00:37 | P.HPIM ---
History of Present Illness H&P Date: 08/28/18 Chief Complaint: Frequent falls Patient is a 78-year-old male with a known history of diabetes type 2 non- insulin-dependent, hyperlipidemia and gout presents to ER with complaints of frequent falls at home. Aberrantly patient has been having multiple falls and unable to get up for after the fall. Patient says that he feels very weak for at least 1 day before he comes back to his normal level. Patient has been feeling very weak and tired all the time. Denied any chest pain before the fall or after the fall. No shortness of breath. No dizziness or lightheadedness. Although he denied any loss of consciousness. CT of the head and cervical spine showed cerebral atrophy. No acute fractures noted. Chest x-ray showed mild pulmonary fibrosis. EKG showed sinus tachycardia with ST-T wave depression in the lateral leads. Patient had an echocardiogram in January 2018 showed his ejection fraction 45-50% . Severe pulmonary hypertension. Hypomagnesemia with level I.4 Troponin 0.043, 0.041 and .040 Sodium 133 potassium 4.5 and hemoglobin 10.3 Review of Systems Constitutional: Patient denies any fever or chills . Generalized weakness and tiredness. Abdomen: Patient denied nausea vomiting and diarrhea and abdominal pain. Cardiovascular: Patient denies any chest pain or short of breath no palpitations. Respiratory: patient denied any cough is from production. No shortness of breath Neurologic: Patient denied any numbness or tingling headache. Frequent falls. Musculoskeletal: Patient denies any complaints of joint swelling or deformity. Skin: Negative Psychiatric: Negative Endocrine: No heat or cold intolerance. No recent weight gain. Genitourinary: No dysuria or hematuria. All other 14 point ROS negative except the above Past Medical History Past Medical History: Cancer, Diabetes Mellitus, Hyperlipidemia, Hypertension, Osteoarthritis (OA), Pneumonia, Vascular Disorder Additional Past Medical History / Comment(s): PAST HISTORY- R knee/leg pain/ swelling,hx penile cancer, neuropathy bilateral lower legs/feet, RLS, hx gout, iron deficiency . History of Any Multi-Drug Resistant Organisms: None Reported Past Surgical History: Joint Replacement, Orthopedic Surgery Additional Past Surgical History / Comment(s): Penile resection, great toe left foot amputated, mukul cataract removal with lens implants, colonoscopy. RIGHT ELBOW SURGERY, RT TKA Past Anesthesia/Blood Transfusion Reactions: No Reported Reaction Past Psychological History: No Psychological Hx Reported Additional Psychological History / Comment(s): Pt resides with his spouse. He uses a cane to ambulate and has leg braces. He no longer drives. His spouse drives. Smoking Status: Never smoker Past Alcohol Use History: None Reported Past Drug Use History: None Reported - Past Family History Father Family Medical History: Cancer Additional Family Medical History / Comment(s): Father had lung cancer. Mother Family Medical History: Coronary Artery Disease (CAD) Medications and Allergies Home Medications Medication Instructions Recorded Confirmed Type Lovastatin [Mevacor] 40 mg PO QAM 02/18/16 08/27/18 History Allopurinol [Zyloprim] 300 mg PO DAILY 04/17/17 08/27/18 History Cholecalciferol [Vitamin D3] 1,000 unit PO DAILY 04/17/17 08/27/18 History Gabapentin [Neurontin] 300 mg PO HS 04/17/17 08/27/18 History metFORMIN HCL [Glucophage] 500 mg PO BID 01/02/18 08/28/18 History QUEtiapine [SEROquel] 50 mg PO HS 08/27/18 08/27/18 History Temazepam [Restoril] 7.5 mg PO HS PRN 08/27/18 08/27/18 History Thiamine [Vitamin B-1] 100 mg PO DAILY 08/27/18 08/27/18 History Allergies Allergy/AdvReac Type Severity Reaction Status Date / Time amoxicillin trihydrate Allergy Rash/Hives Verified 08/27/18 19:45 [From Augmentin] potassium clavulanate Allergy Rash/Hives Verified 08/27/18 19:45 [From Augmentin] Physical Exam Vitals: Vital Signs Temp Pulse Pulse Pulse Resp BP BP 08/28/18 12:04 79 55 L 16 08/28/18 11:32 97.7 F 79 55 L 16 134/69 08/28/18 08:00 97.6 F 67 16 08/28/18 03:01 97 F L 82 18 08/28/18 02:04 97 F L 90 18 08/28/18 00:46 78 18 113/66 08/27/18 23:50 97.2 F L 88 18 142/90 08/27/18 22:53 85 16 127/60 08/27/18 22:20 87 18 129/70 08/27/18 21:32 85 18 134/82 08/27/18 20:27 101 H 18 125/65 08/27/18 19:08 98.2 F 105 H 18 151/101 BP BP Pulse Ox 08/28/18 12:04 08/28/18 11:32 147/86 100 08/28/18 08:00 132/65 95 08/28/18 03:01 147/80 95 08/28/18 02:04 156/75 98 08/28/18 00:46 98 08/27/18 23:50 98 08/27/18 22:53 98 08/27/18 22:20 98 08/27/18 21:32 98 08/27/18 20:27 97 08/27/18 19:08 95 Intake and Output 08/27/18 08/28/18 08/28/18 22:59 06:59 14:59 Intake Total 300 240 Balance 300 240 Intake: IV 300 Sodium Chloride 0.9% 1, 300 000 ml @ 75 mls/hr IV . [id number] [facility] Rx#:[id number] Oral 240 Other: # Voids 1 Weight 77.111 kg 77 kg PHYSICAL EXAMINATION: Patient is lying in the bed comfortably, no acute distress, awake alert and oriented.. HEENT: Normocephalic. Neck is supple. Pupils reactive. Nostrils clear. Oral cavity is moist. Ears reveal no drainage. Neck reveals no JVD, carotid bruits, or thyromegaly. CHEST EXAMINATION: Trachea is central. Symmetrical expansion. Lung clarke clear to auscultation and percussion. CARDIAC: Normal S1, S2 with no gallops. No murmurs ABDOMEN: Soft. Bowel sounds normal. No organomegaly. No abdominal bruits. Extremities: reveal no edema. No clubbing or cyanosis Neurologically awake, alert, oriented x3 with well-coordinated movements. No focal deficits noted Skin: No rash or skin lesions. Psychiatric: Coperative. Nonsuicidal Musculoskeletal: No joint swelling or deformity. Normal range of motion. Left elbow hypertrophic gouty arthritis. Results CBC & Chem 7: 08/27/18 19:25 08/27/18 19:25 Labs: Abnormal Lab Results - Last 24 Hours (Table) 08/27/18 08/27/18 08/27/18 Range/Units 19:25 19:25 19:25 RBC 3.30 L (4.30-5.90) m/uL Hgb 10.3 L (13.0-17.5) gm/dL Hct 31.9 L (39.0-53.0) % RDW 17.9 H (11.5-15.5) % Plt Count 34 L (150-450) k/uL Neutrophils # 8.9 H (1.3-7.7) k/uL Lymphocytes # 0.4 L (1.0-4.8) k/uL D-Dimer (<0.60) mg/L FEU Sodium 133 L (137-145) mmol/L BUN 24 H (9-20) mg/dL Glucose 184 H (74-99) mg/dL POC Glucose (mg/dL) (75-99) mg/dL Hemoglobin A1c (4.0-6.0) % Magnesium 1.4 L (1.6-2.3) mg/dL ALT 16 L (21-72) U/L Total Creatine Kinase 39 L (55-170) U/L Troponin I 0.043 H* (0.000-0.034) ng/mL Total Protein 6.0 L (6.3-8.2) g/dL Albumin 3.4 L (3.5-5.0) g/dL 08/28/18 08/28/18 08/28/18 Range/Units 02:18 02:18 05:37 RBC (4.30-5.90) m/uL Hgb (13.0-17.5) gm/dL Hct (39.0-53.0) % RDW (11.5-15.5) % Plt Count (150-450) k/uL Neutrophils # (1.3-7.7) k/uL Lymphocytes # (1.0-4.8) k/uL D-Dimer (<0.60) mg/L FEU Sodium (137-145) mmol/L BUN (9-20) mg/dL Glucose (74-99) mg/dL POC Glucose (mg/dL) 132 H (75-99) mg/dL Hemoglobin A1c 6.6 H (4.0-6.0) % Magnesium (1.6-2.3) mg/dL ALT (21-72) U/L Total Creatine Kinase (55-170) U/L Troponin I 0.041 H* (0.000-0.034) ng/mL Total Protein (6.3-8.2) g/dL Albumin (3.5-5.0) g/dL 08/28/18 08/28/18 08/28/18 Range/Units 06:56 06:56 09:38 RBC (4.30-5.90) m/uL Hgb (13.0-17.5) gm/dL Hct (39.0-53.0) % RDW (11.5-15.5) % Plt Count (150-450) k/uL Neutrophils # (1.3-7.7) k/uL Lymphocytes # (1.0-4.8) k/uL D-Dimer 1.54 H (<0.60) mg/L FEU Sodium (137-145) mmol/L BUN (9-20) mg/dL Glucose (74-99) mg/dL POC Glucose (mg/dL) (75-99) mg/dL Hemoglobin A1c (4.0-6.0) % Magnesium 1.5 L (1.6-2.3) mg/dL ALT (21-72) U/L Total Creatine Kinase (55-170) U/L Troponin I 0.040 H* (0.000-0.034) ng/mL Total Protein (6.3-8.2) g/dL Albumin (3.5-5.0) g/dL 08/28/18 Range/Units 11:38 RBC (4.30-5.90) m/uL Hgb (13.0-17.5) gm/dL Hct (39.0-53.0) % RDW (11.5-15.5) % Plt Count (150-450) k/uL Neutrophils # (1.3-7.7) k/uL Lymphocytes # (1.0-4.8) k/uL D-Dimer (<0.60) mg/L FEU Sodium (137-145) mmol/L BUN (9-20) mg/dL Glucose (74-99) mg/dL POC Glucose (mg/dL) 142 H (75-99) mg/dL Hemoglobin A1c (4.0-6.0) % Magnesium (1.6-2.3) mg/dL ALT (21-72) U/L Total Creatine Kinase (55-170) U/L Troponin I (0.000-0.034) ng/mL Total Protein (6.3-8.2) g/dL Albumin (3.5-5.0) g/dL Thrombosis Risk Factor Assmnt - DVT/VTE Prophylaxis DVT/VTE Prophylaxis: Pharmacologic Prophylaxis ordered - Choose All That Apply Any of the Below Risk Factors Present?: Yes Each Factor Represents 1 point: Medical pt on bed rest Each Risk Factor Represents 3 Points: Age 75 years or older Thrombosis Risk Factor Assessment Total Risk Factor Score: 4 Thrombosis Risk Factor Assessment Level: Moderate Risk Assessment and Plan Assessment: Frequent falls and near syncope. Rule out cardiac etiology and seizures. Elevated d-dimer. Rule out pulmonary embolism. CTA chest was ordered. Hyperlipidemia Hypertension Diabetes type 2 [id number]. His B A1c 6.6 Hypomagnesemia with level I.4 Elevated troponin level. Not consistent with ACS as per cardiology Bilateral lower extremity peripheral neuropathy diabetic History of penile cancer status post resection Right elbow surgery due to gouty arthritis DVT prophylaxis Osteoarthritis Plan: Patient be continued on IV hydration. Orthostatic vitals were ordered. D- dimer is elevated. CT angiogram to rule out any pulmonary embolism. EEG is negative for seizures. Continue the telemetry monitoring. Serial EKGs and troponins. Cardiology is on board. Further recommendations based on the clinical course. Prognosis is guarded with multiple medical problems and comorbid conditions. will replace magnesium. Time with Patient: Greater than 30
[2018-08-29 06:12] LABS: Glucose,Whole Blood 123 mg/dL (75-99)
[2018-08-29] MEDS: INSULIN ASPART 100 UNIT/ML 1 ML 10 ML VIAL SQ SCH ×4 (06:22→21:31)
[2018-08-29] MEDS: metFORMIN 500 MG TAB PO SCH ×2 (06:26→16:35)
[2018-08-29 06:46] LABS: Calcium 8.3 mg/dL (8.4-10.2); Magnesium 1.5 mg/dL (1.6-2.3); Potassium 4.4 mmol/L (3.5-5.1)
[2018-08-29 07:10] LABS: Anisocytosis Slight; HCT 25.5 % (39.0-53.0); Hypochromasia Slight; MCH 31.5 pg (25.0-35.0); MCHC 32.7 g/dL (31.0-37.0); MCV 96.2 fL (80.0-100.0); Macrocytosis Slight; Mean Platelet Volume 8.6; RBC 2.65 m/uL (4.30-5.90); RDW 17.8 % (11.5-15.5); WBC 6.9 k/uL (3.8-10.6)
[2018-08-29 07:16] LABS: HGB 8.4 gm/dL (13.0-17.5); Platelet Count 24 k/uL (150-450)
[2018-08-29 07:18] LABS: Appearance,Urine Clear (Clear); Bilirubin,Urine Negative (Negative); Blood,Urine Trace (Negative); Color,Urine Yellow; Glucose,Urine (UA) Negative (Negative); Ketones,Urine Negative (Negative); Leukocyte Esterase,Urine Negative (Negative); Mucus,Urine Rare /hpf; Nitrite,Urine Negative (Negative); Protein,Urine Trace (Negative); RBC,Urine <1 /hpf (0-5); Urobilinogen,Urine <2.0 mg/dL (<2.0); WBC,Urine <1 /hpf (0-5)
[2018-08-29] MEDS: THIAMINE 100 MG TAB PO SCH (07:34)
[2018-08-29] MEDS: ATORVASTATIN 10 MG TAB PO SCH (07:34)
[2018-08-29] MEDS: ALLOPURINOL 100 MG TAB PO SCH (07:34)
[2018-08-29] MEDS: CHOLECALCIFEROL 1,000 UNIT TAB PO SCH (07:34)
[2018-08-29 08:58] LABS: Metamyelocytes # (M) 0.07 k/uL (0); Metamyelocytes % 1 %; Nucleated Red Blood Cells 0 /100 WBC (0-0)
[2018-08-29 09:01] LABS: Band Neutrophils % 10 %; Eosinophils # (M) 0.21 k/uL (0-0.7); Lymphocytes # (M) 0.48 k/uL (1.0-4.8); Monocytes # (M) 0.21 k/uL (0-1.0); Myelocytes # (M) 0.07 k/uL (0); Myelocytes % 1 %; Neutrophils % (M) 78 %; Total Cells Counted 200; Toxic Granulation Present
--- NOTE | 2018-08-29 09:53 | CT ---
EXAMINATION TYPE: CT angio chest DATE OF EXAM: 08/29/2018 COMPARISON: 04/19/2017 HISTORY: SOB, elevated d dimer CT DLP: 232.3 mGycm CONTRAST: CT chest with contrast and 3D reconstruction with MIP imaging is performed with IV Contrast, patient injected with 100 mL of Isovue 370. Contrast-enhanced CT of the chest was performed through the course of the pulmonary arteries with geoffrey g and mediastinal window settings submitted. 3D reconstruction with MIP imaging was also performed. PULMONARY ARTERIES: The pulmonary arteries and their major tributaries are patent. I do not see isabelle dence for sizable filling defect to suggest pulmonary embolic process. LUNGS: There is basilar atelectasis and pleural effusions. No evidence of pulmonary nodule or mass. MEDIASTINUM: Thoracic aorta is of normal caliber,however, evaluation is limited given timing of the contrast bolus. If there is concern for thoracic aortic pathology consider ARNEL. Correlate clinicall y . The heart is not enlarged. There is extensive mediastinal adenopathy. Right tracheal lymph node a nd measures 1.7 cm while the left tracheobronchial lymph node measures 4 x 2.3 cm. Subcarinal adenopa thy measures 1.7 cm. No mediastinal lymph nodes greater than 1cm. HILAR STRUCTURES: No evidence for mass. No hilar lymph nodes greater than 1 cm. UPPER ABDOMEN: No significant abnormality is seen. IMPRESSION: 1. No evidence for Pulmonary embolism at this time. 2. New Mediastinal adenopathy.
[2018-08-29] MEDS: SODIUM CHLORIDE 0.9% 1,000 ML IV SCH (12:07)
[2018-08-29 12:08] LABS: Glucose,Whole Blood 177 mg/dL (75-99)
--- NOTE | 2018-08-29 12:41 | P.CNPUL ---
History of Present Illness Consult date: 08/29/18 Reason for consult: abnormal CXR/CT Chief complaint: Abnormal CAT scan, thoracic adenopathy History of present illness: Pulmonary consult dated 08/29/2018 This is a 70-year-old male who presents to the emergency department with complaints of frequent falling. I spoke to his and over the last month or so, the patient has had significant falls. She states that more recently they' ve been occurring more frequently maybe 3 or 4 times a day. The patient could not get up off the ground and the is having a hard time getting the patient. Apparently when he falls he gets his chest is limited in his head. The patient was seen in the emergency room admitted to the hospital. Currently denies any pain. Apparently there was no loss of consciousness. There is no chest pain or chest pressure. No shortness of breath. In the process of working him up, a computed tomography scan of the chest was done which showed thoracic adenopathy including paratracheal and subcarinal adenopathy. This could relate to cancer and/or lymphoma. The patient apparently is being evaluated for placement to longterm such as [facility]. The wasn't sure whether or not she or he wouldn't want any further evaluation for the adenopathy. I told her to give it some thought. I said to her that the next best test would be a PET scan. This is an outpatient procedure. This will give us some indication as to whether or not the nodes are more likely malignant or benign. If it was a former, mediastinoscopy could be performed or bronchoscopy with transbronchial needle aspiration. Again, the is not sure whether or not she would want any of this. The patient has been having poor appetite recently and according to the has lost quite a bit of weight. 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 The patient has a history of penile cancer, diabetes, hyperlipidemia, hypertension, DJD, pneumonia, restless leg syndrome, gout, iron deficiency, and multiple other medical problems. His primary doctor's Dr. Rodriguez in [place], [place]. Review of Systems Other than weakness and frequent falling and occasional dizziness, the patient' s review of systems is unremarkable. He does have poor appetite and significant weight loss according to his . She cannot handle him anymore and is planning to have him placed into a longterm such as [facility]. Past Medical History Past Medical History: Cancer, Diabetes Mellitus, Hyperlipidemia, Hypertension, Osteoarthritis (OA), Pneumonia, Vascular Disorder Additional Past Medical History / Comment(s): PAST HISTORY- R knee/leg pain/ swelling,hx penile cancer, neuropathy bilateral lower legs/feet, RLS, hx gout, iron deficiency . History of Any Multi-Drug Resistant Organisms: None Reported Past Surgical History: Joint Replacement, Orthopedic Surgery Additional Past Surgical History / Comment(s): Penile resection, great toe left foot amputated, mukul cataract removal with lens implants, colonoscopy. RIGHT ELBOW SURGERY, RT TKA Past Anesthesia/Blood Transfusion Reactions: No Reported Reaction Past Psychological History: No Psychological Hx Reported Additional Psychological History / Comment(s): Pt resides with his spouse. He uses a cane to ambulate and has leg braces. He no longer drives. His spouse drives. Smoking Status: Never smoker Past Alcohol Use History: None Reported Past Drug Use History: None Reported - Past Family History Father Family Medical History: Cancer Additional Family Medical History / Comment(s): Father had lung cancer. Mother Family Medical History: Coronary Artery Disease (CAD) Medications and Allergies Home Medications Medication Instructions Recorded Confirmed Type Lovastatin [Mevacor] 40 mg PO QAM 02/18/16 08/27/18 History Allopurinol [Zyloprim] 300 mg PO DAILY 04/17/17 08/27/18 History Cholecalciferol [Vitamin D3] 1,000 unit PO DAILY 04/17/17 08/27/18 History Gabapentin [Neurontin] 300 mg PO HS 04/17/17 08/27/18 History metFORMIN HCL [Glucophage] 500 mg PO BID 01/02/18 08/28/18 History QUEtiapine [SEROquel] 50 mg PO HS 08/27/18 08/27/18 History Temazepam [Restoril] 7.5 mg PO HS PRN 08/27/18 08/27/18 History Thiamine [Vitamin B-1] 100 mg PO DAILY 08/27/18 08/27/18 History Allergies Allergy/AdvReac Type Severity Reaction Status Date / Time amoxicillin trihydrate Allergy Rash/Hives Verified 08/27/18 19:45 [From Augmentin] potassium clavulanate Allergy Rash/Hives Verified 08/27/18 19:45 [From Augmentin] Physical Exam Osteopathic Statement: *. No significant issues noted on an osteopathic structural exam other than those noted in the History and Physical/Consult. Vitals: Vital Signs Temp Pulse Pulse Resp BP BP Pulse Ox 08/29/18 08:35 97.6 F 84 80 16 145/65 95 08/29/18 03:52 98 F 80 18 150/82 97 08/28/18 23:55 98 F 82 18 152/80 140/74 98 08/28/18 19:42 98.5 F 85 18 138/75 97 08/28/18 16:00 97.8 F 92 55 L 16 153/67 97 Intake and Output 08/28/18 08/29/18 08/29/18 22:59 06:59 14:59 Intake Total 300 Output Total 300 400 Balance 0 -400 Intake: IV 300 Sodium Chloride 0.9% 1, 300 000 ml @ 75 mls/hr IV . [id number] [facility]KE Rx#:[id number] Output: Urine 300 400 Other: # Voids 1 Weight 77 kg No acute distress, confused, and very cachectic and frail looking. HEENT examination is grossly unremarkable. Mucous membranes are moist. Neck supple. Full range of motion. No adenopathy thyromegaly or neck vein distention. Cardiovascular examination reveals regular rhythm rate. S1-S2 normal. No S3 or S4. No discernible murmur noted. Lungs reveal mostly clear breath sounds. Breath sounds are equal bilaterally. A few mild rhonchi noted. No wheezes or crackles. Abdomen soft bowel sounds are heard. No masses or tenderness. Extremities are intact. No cyanosis clubbing or edema. Skin is without rash or lesion. Neurologic examination is difficult to assess. Results - Laboratory Findings CBC and BMP: 08/29/18 06:01 08/29/18 06:01 PT/INR, D-dimer PT 10.4 sec (9.0-12.0) 08/27/18 19:25 INR 1.1 (<1.2) 08/27/18 19:25 D-Dimer 1.54 mg/L FEU (<0.60) H 08/28/18 09:38 Abnormal lab findings: Abnormal Labs 08/27/18 08/27/18 08/27/18 19:25 19:25 19:25 RBC 3.30 L Hgb 10.3 L Hct 31.9 L RDW 17.9 H Plt Count 34 L Neutrophils # 8.9 H Lymphocytes # 0.4 L Lymphocytes # (Manual) Metamyelocytes # (Man) Myelocytes # (Manual) D-Dimer Sodium 133 L Carbon Dioxide BUN 24 H Glucose 184 H POC Glucose (mg/dL) Hemoglobin A1c Calcium Magnesium 1.4 L ALT 16 L Total Creatine Kinase 39 L Troponin I 0.043 H* Total Protein 6.0 L Albumin 3.4 L Urine Protein Urine Blood Urine Mucus 08/28/18 08/28/18 08/28/18 02:18 02:18 05:37 RBC Hgb Hct RDW Plt Count Neutrophils # Lymphocytes # Lymphocytes # (Manual) Metamyelocytes # (Man) Myelocytes # (Manual) D-Dimer Sodium Carbon Dioxide BUN Glucose POC Glucose (mg/dL) 132 H Hemoglobin A1c 6.6 H Calcium Magnesium ALT Total Creatine Kinase Troponin I 0.041 H* Total Protein Albumin Urine Protein Urine Blood Urine Mucus 08/28/18 08/28/18 08/28/18 06:56 06:56 09:38 RBC Hgb Hct RDW Plt Count Neutrophils # Lymphocytes # Lymphocytes # (Manual) Metamyelocytes # (Man) Myelocytes # (Manual) D-Dimer 1.54 H Sodium Carbon Dioxide BUN Glucose POC Glucose (mg/dL) Hemoglobin A1c Calcium Magnesium 1.5 L ALT Total Creatine Kinase Troponin I 0.040 H* Total Protein Albumin Urine Protein Urine Blood Urine Mucus 08/28/18 08/28/18 08/28/18 11:38 17:12 19:49 RBC Hgb Hct RDW Plt Count Neutrophils # Lymphocytes # Lymphocytes # (Manual) Metamyelocytes # (Man) Myelocytes # (Manual) D-Dimer Sodium Carbon Dioxide BUN Glucose POC Glucose (mg/dL) 142 H 216 H 171 H Hemoglobin A1c Calcium Magnesium ALT Total Creatine Kinase Troponin I Total Protein Albumin Urine Protein Urine Blood Urine Mucus 08/29/18 08/29/18 08/29/18 06:01 06:01 06:10 RBC 2.65 L Hgb 8.4 L D Hct 25.5 L RDW 17.8 H Plt Count 24 L Neutrophils # Lymphocytes # Lymphocytes # (Manual) 0.48 L Metamyelocytes # (Man) 0.07 H Myelocytes # (Manual) 0.07 H D-Dimer Sodium 133 L Carbon Dioxide 21 L BUN Glucose 117 H POC Glucose (mg/dL) 123 H Hemoglobin A1c Calcium 8.3 L Magnesium 1.5 L ALT Total Creatine Kinase Troponin I Total Protein Albumin Urine Protein Urine Blood Urine Mucus 08/29/18 08/29/18 07:00 11:52 RBC Hgb Hct RDW Plt Count Neutrophils # Lymphocytes # Lymphocytes # (Manual) Metamyelocytes # (Man) Myelocytes # (Manual) D-Dimer Sodium Carbon Dioxide BUN Glucose POC Glucose (mg/dL) 177 H Hemoglobin A1c Calcium Magnesium ALT Total Creatine Kinase Troponin I Total Protein Albumin Urine Protein Trace H Urine Blood Trace H Urine Mucus Rare H - Diagnostic Findings Chest x-ray: report reviewed, image reviewed CT scan - chest: report reviewed, image reviewed (Chest x-ray, labs and medications are reviewed.) Assessment and Plan Assessment: Assessment Extensive mediastinal adenopathy is seen on computed tomography scan, which may relate to malignancy Profound weight loss secondary to decreased appetite, which may reflect the anorexia/cachexia syndrome of malignancy Frequent falls, currently being evaluated by the primary service. History of gout History of hyperlipidemia History of diabetes mellitus Iron deficiency anemia History of penile cancer History of benign essential hypertension DJD History of restless leg syndrome History of bilateral lower extremity neuropathy Plan: Plan dated 08/29/2018 The patient is a no code. I explained the various options for the . At this point, she is most concerned about getting the patient placed into the longterm. He probably will end up at [facility]. I told her the next step would be PET scan. This is done as an outpatient. I could set this up if she is interested. After that, if the PET scan is positive, we may attempt a biopsy either with mediastinoscopy or bronchoscopy with transbronchial needle aspiration. If the PET scan was negative, we will just observe these nodes over time. Again, she is not sure she wants any of the stuff done at this time. She appears to be overwhelmed by all of this and her primary goal right now is to get her admitted to the longterm. Time with Patient: Greater than 30
--- NOTE | 2018-08-29 14:53 | P.PN ---
Subjective Progress Note Date: 08/29/18 This is a pleasant 78-year-old gentleman with history of hypertension , diabetes, hyperlipidemia,he also has some type of blood disorder for which she follows with Dr. Mathur in the office.he presents to the hospital on this occasion with frequent falls at home. According to the patient, he states that he has been very weak at home and has had a significant change in his energy levels. He feels tired all the time. He states that he has had multiple falls and once he falls was unable to get up. Patient does have mild symptoms of feeling as though he may pass out before he falls down, but when he hits the ground he is awake. He does not lose consciousness. He is too weak however once he hits the ground to stand back up. He denies any chest discomfort, no palpitations. Laboratory data on admission here white blood cell count 9.6, hemoglobin 10.3, platelet count 34.Sodium 133, potassium 4.5, BUN 24, creatinine 1.1.magnesium level I.4 on admission, 1.5 this morning.troponins 0.043, 0.041, 0.040.A CAT scan of the head and cervical spine was performed which revealed cerebral atrophy. No acute fracture.chest x-ray showed mild pulmonary fibrosis.EKG on arrival showed a sinus tachycardia with ST depression noted in the lateral leads.blood pressure on arrival 150/100 with a heart rate of 100, 95% on room air.at the time of my examination this morning, patient states he feels very tired and has no energy, he denies any chest discomfort, his breathing is stable. He did have an echocardiogram with Doppler study performed in January of this year which revealed an ejection fraction of 45-50%. Severe pulmonary hypertension. 08/29/2018 Patient was seen and examined this morning, he sitting up in the chair at bedside. No episodes of dizziness or lightheadedness. No falls since he's been here. Orthostatics were obtained which came back to be negative.CTA of the chest did not show evidence for pulmonary embolism.did however reveal new mediastinal adenopathy.Pulmonary consultation has been requested.blood pressure today 163/76 lying 153/70 sitting and 144/68 standing. 95% on room air, heart rate in the 80s.White blood cell count 6.9, hemoglobin 8.4, platelet count 24.sodium 133, potassium 4.4, BUN 19, creatinine 1.0, magnesium 1.5. Objective - Vital Signs Vital signs: Vital Signs Temp 97.5 F L 08/29/18 12:00 Pulse 80 08/29/18 12:00 Resp 18 08/29/18 12:00 BP 163/76 08/29/18 12:00 Pulse Ox 95 08/29/18 12:00 Intake & Output 08/28/18 08/29/18 08/29/18 18:59 06:59 18:59 Intake Total 360 300 240 Output Total 300 400 Balance 60 -100 240 Weight 77 kg Intake: IV 300 Sodium Chloride 0.9% 1, 300 000 ml @ 75 mls/hr IV . [id number] [facility] Rx#:[id number] Oral 360 240 Output: Urine 300 400 Other: # Voids 1 1 # Bowel Movements 1 - Exam PHYSICAL EXAMINATION: GENERAL: This is a 78-year-old gentleman in no acute distress at the time of my examination HEENT: Head is atraumatic, normocephalic. Pupils equal, round. Sclera anicteric. Conjunctiva are clear. Mucous membranes of the mouth are moist. Neck is supple. There is no elevated jugular venous pressure.No carotid bruit is heard. HEART EXAMINATION: [Heart S1, S2 normal. No murmur or gallop heard.] CHEST EXAMINATION:[ Lungs are clear to auscultation and precussion. No chest wall tenderness is noted on palpation or with deep breathing.] ABDOMEN: [ Soft, nontender. Bowel sounds are heard. No organomegaly noted]. EXTREMITIES:[ 2+ peripheral pulses with no evidence of peripheral edema and no calf tenderness noted]. NEUROLOGIC [patient is awake, alert and oriented X3.] - Labs CBC & Chem 7: 08/29/18 06:01 08/29/18 06:01 Labs: Abnormal Lab Results - Last 24 Hours (Table) 08/28/18 08/28/18 08/29/18 Range/Units 17:12 19:49 06:01 RBC (4.30-5.90) m/uL Hgb (13.0-17.5) gm/dL Hct (39.0-53.0) % RDW (11.5-15.5) % Plt Count (150-450) k/uL Lymphocytes # (Manual) (1.0-4.8) k/uL Metamyelocytes # (Man) (0) k/uL Myelocytes # (Manual) (0) k/uL Sodium 133 L (137-145) mmol/L Carbon Dioxide 21 L (22-30) mmol/L Glucose 117 H (74-99) mg/dL POC Glucose (mg/dL) 216 H 171 H (75-99) mg/dL Calcium 8.3 L (8.4-10.2) mg/dL Magnesium 1.5 L (1.6-2.3) mg/dL Urine Protein (Negative) Urine Blood (Negative) Urine Mucus (None) /hpf 08/29/18 08/29/18 08/29/18 Range/Units 06:01 06:10 07:00 RBC 2.65 L (4.30-5.90) m/uL Hgb 8.4 L D (13.0-17.5) gm/dL Hct 25.5 L (39.0-53.0) % RDW 17.8 H (11.5-15.5) % Plt Count 24 L (150-450) k/uL Lymphocytes # (Manual) 0.48 L (1.0-4.8) k/uL Metamyelocytes # (Man) 0.07 H (0) k/uL Myelocytes # (Manual) 0.07 H (0) k/uL Sodium (137-145) mmol/L Carbon Dioxide (22-30) mmol/L Glucose (74-99) mg/dL POC Glucose (mg/dL) 123 H (75-99) mg/dL Calcium (8.4-10.2) mg/dL Magnesium (1.6-2.3) mg/dL Urine Protein Trace H (Negative) Urine Blood Trace H (Negative) Urine Mucus Rare H (None) /hpf 08/29/18 Range/Units 11:52 RBC (4.30-5.90) m/uL Hgb (13.0-17.5) gm/dL Hct (39.0-53.0) % RDW (11.5-15.5) % Plt Count (150-450) k/uL Lymphocytes # (Manual) (1.0-4.8) k/uL Metamyelocytes # (Man) (0) k/uL Myelocytes # (Manual) (0) k/uL Sodium (137-145) mmol/L Carbon Dioxide (22-30) mmol/L Glucose (74-99) mg/dL POC Glucose (mg/dL) 177 H (75-99) mg/dL Calcium (8.4-10.2) mg/dL Magnesium (1.6-2.3) mg/dL Urine Protein (Negative) Urine Blood (Negative) Urine Mucus (None) /hpf Assessment and Plan Plan: assessment and plan #1frequent falls with associated mild lightheadedness and near-syncope #2Hypertension #3 diabetes #4hyperlipidemia #5 thrombocytopenia #6 abnormal troponins, not consistent with acute coronary syndrome with no significant rise and fall pattern. Plan Echo cardiac gram with Doppler study was performed which revealed an ejection fraction of 50-55%. Orthostatics are negative. From cardiology's perspective, we'll follow this patient along with you now on an as-needed basis only, please don't hesitate to call with any questions. DNP note has been reviewed, I agree with a documented findings and plan of care. Patient was seen and examined.
--- NOTE | 2018-08-29 16:42 | P.CONS ---
History of Present Illness - Reason for Consult Consult date: 08/29/18 Weakness - Chief Complaint Weakness - History of Present Illness This 70-year-old male being evaluated by the neurology service for weakness and falls. This is been happening over the course of some months. He and his think there may be some episodes where he does momentarily loses consciousness when he stands up too quickly seems to be causing falls. He has a known history of diabetes with significant lower extremity peripheral neuropathy. Virtually no feeling in the bottom of his feet. He was brought to [facility] emergency room for evaluation. CT of the head and neck showed no acute processes. CT of the chest showed thoracic adenopathy including paratracheal and subcarinal adenopathy pulmonology has evaluated him and indicates this could be lymphoma or medical static disease. He does have a previous history of penile cancer. At the time of my exam he is being evaluated by physical therapy. I did watch him stand quite easily from a seated position on his bed. He used a walker and walked quite steadily down the hallway. Although his gait is slow. An EEG was performed and it was normal. Review of Systems All systems: negative Constitutional: Reports as per HPI Past Medical History Past Medical History: Cancer, Diabetes Mellitus, Hyperlipidemia, Hypertension, Osteoarthritis (OA), Pneumonia, Vascular Disorder Additional Past Medical History / Comment(s): PAST HISTORY- R knee/leg pain/ swelling,hx penile cancer, neuropathy bilateral lower legs/feet, RLS, hx gout, iron deficiency . History of Any Multi-Drug Resistant Organisms: None Reported Past Surgical History: Joint Replacement, Orthopedic Surgery Additional Past Surgical History / Comment(s): Penile resection, great toe left foot amputated, mukul cataract removal with lens implants, colonoscopy. RIGHT ELBOW SURGERY, RT TKA Past Anesthesia/Blood Transfusion Reactions: No Reported Reaction Past Psychological History: No Psychological Hx Reported Additional Psychological History / Comment(s): Pt resides with his spouse. He uses a cane to ambulate and has leg braces. He no longer drives. His spouse drives. Smoking Status: Never smoker Past Alcohol Use History: None Reported Past Drug Use History: None Reported - Past Family History Father Family Medical History: Cancer Additional Family Medical History / Comment(s): Father had lung cancer. Mother Family Medical History: Coronary Artery Disease (CAD) Medications and Allergies Home Medications Medication Instructions Recorded Confirmed Type Lovastatin [Mevacor] 40 mg PO QAM 02/18/16 08/27/18 History Allopurinol [Zyloprim] 300 mg PO DAILY 04/17/17 08/27/18 History Cholecalciferol [Vitamin D3] 1,000 unit PO DAILY 04/17/17 08/27/18 History Gabapentin [Neurontin] 300 mg PO HS 04/17/17 08/27/18 History metFORMIN HCL [Glucophage] 500 mg PO BID 01/02/18 08/28/18 History QUEtiapine [SEROquel] 50 mg PO HS 08/27/18 08/27/18 History Temazepam [Restoril] 7.5 mg PO HS PRN 08/27/18 08/27/18 History Thiamine [Vitamin B-1] 100 mg PO DAILY 08/27/18 08/27/18 History Allergies Allergy/AdvReac Type Severity Reaction Status Date / Time amoxicillin trihydrate Allergy Rash/Hives Verified 08/27/18 19:45 [From Augmentin] potassium clavulanate Allergy Rash/Hives Verified 08/27/18 19:45 [From Augmentin] Physical Exam Vitals: Vital Signs Temp Pulse Pulse Pulse Resp BP BP 08/29/18 12:00 97.5 F L 85 81 78 16 153/70 144/68 08/29/18 08:35 97.6 F 84 80 16 145/65 08/29/18 03:52 98 F 80 18 08/28/18 23:55 98 F 82 18 152/80 08/28/18 19:42 98.5 F 85 18 BP Pulse Ox 08/29/18 12:00 163/76 95 08/29/18 08:35 95 08/29/18 03:52 150/82 97 08/28/18 23:55 140/74 98 08/28/18 19:42 138/75 97 Intake and Output 08/29/18 08/29/18 08/29/18 06:59 14:59 22:59 Intake Total 240 Output Total 400 Balance -400 240 Intake: Oral 240 Output: Urine 400 Other: # Voids 1 # Bowel Movements 1 Weight 77 kg - Constitutional General appearance: no acute distress, thin - EENT Eyes: no abnormal pupil, EOMI, PERRLA, no ptosis ENT: hearing grossly normal - Neck Neck: normal ROM, no rigidity - Respiratory Respiratory: negative: prolonged expiration, prolonged inspiration - Cardiovascular Rhythm: regular - Gastrointestinal General gastrointestinal: no distended, no tenderness - Neurologic He is alert awake and oriented 3. Speech-language are normal. There is no facial asymmetry. Strength is full in bilateral upper lower extremities. Distal lower extremities show significant sensory loss equal and bilaterally consistent with peripheral polyneuropathy. No tremors or seizure-like activities are seen. Results CBC & Chem 7: 08/29/18 06:01 08/29/18 06:01 Labs: Abnormal Lab Results - Last 24 Hours (Table) 08/28/18 08/28/18 08/29/18 Range/Units 17:12 19:49 06:01 RBC (4.30-5.90) m/uL Hgb (13.0-17.5) gm/dL Hct (39.0-53.0) % RDW (11.5-15.5) % Plt Count (150-450) k/uL Lymphocytes # (Manual) (1.0-4.8) k/uL Metamyelocytes # (Man) (0) k/uL Myelocytes # (Manual) (0) k/uL Sodium 133 L (137-145) mmol/L Carbon Dioxide 21 L (22-30) mmol/L Glucose 117 H (74-99) mg/dL POC Glucose (mg/dL) 216 H 171 H (75-99) mg/dL Calcium 8.3 L (8.4-10.2) mg/dL Magnesium 1.5 L (1.6-2.3) mg/dL Urine Protein (Negative) Urine Blood (Negative) Urine Mucus (None) /hpf 08/29/18 08/29/18 08/29/18 Range/Units 06:01 06:10 07:00 RBC 2.65 L (4.30-5.90) m/uL Hgb 8.4 L D (13.0-17.5) gm/dL Hct 25.5 L (39.0-53.0) % RDW 17.8 H (11.5-15.5) % Plt Count 24 L (150-450) k/uL Lymphocytes # (Manual) 0.48 L (1.0-4.8) k/uL Metamyelocytes # (Man) 0.07 H (0) k/uL Myelocytes # (Manual) 0.07 H (0) k/uL Sodium (137-145) mmol/L Carbon Dioxide (22-30) mmol/L Glucose (74-99) mg/dL POC Glucose (mg/dL) 123 H (75-99) mg/dL Calcium (8.4-10.2) mg/dL Magnesium (1.6-2.3) mg/dL Urine Protein Trace H (Negative) Urine Blood Trace H (Negative) Urine Mucus Rare H (None) /hpf 08/29/18 Range/Units 11:52 RBC (4.30-5.90) m/uL Hgb (13.0-17.5) gm/dL Hct (39.0-53.0) % RDW (11.5-15.5) % Plt Count (150-450) k/uL Lymphocytes # (Manual) (1.0-4.8) k/uL Metamyelocytes # (Man) (0) k/uL Myelocytes # (Manual) (0) k/uL Sodium (137-145) mmol/L Carbon Dioxide (22-30) mmol/L Glucose (74-99) mg/dL POC Glucose (mg/dL) 177 H (75-99) mg/dL Calcium (8.4-10.2) mg/dL Magnesium (1.6-2.3) mg/dL Urine Protein (Negative) Urine Blood (Negative) Urine Mucus (None) /hpf Assessment and Plan (1) Peripheral polyneuropathy Current Visit: Yes Status: Chronic Code(s): G62.9 - POLYNEUROPATHY, UNSPECIFIED SNOMED Code(s): 78469420 (2) Syncope Current Visit: Yes Status: Suspected Code(s): R55 - SYNCOPE AND COLLAPSE SNOMED Code(s): 758510502 (3) Multiple falls Current Visit: Yes Status: Chronic Code(s): R29.6 - REPEATED FALLS SNOMED Code(s): 425851385 (4) Diabetes mellitus Current Visit: No Status: Chronic Code(s): E11.9 - TYPE 2 DIABETES MELLITUS WITHOUT COMPLICATIONS SNOMED Code(s): 20061560 (5) History of cancer Current Visit: Yes Status: Chronic Code(s): Z85.9 - PERSONAL HISTORY OF MALIGNANT NEOPLASM, UNSPECIFIED SNOMED Code(s): 542221948 (6) Lymphadenopathy Current Visit: Yes Status: Acute Code(s): R59.1 - GENERALIZED ENLARGED LYMPH NODES SNOMED Code(s): 06399567 Plan: His multiple comorbidities contributing to his symptoms. Further outpatient investigation needs to be done to determine the etiology of the abnormality on his CAT scan of the chest. Although his orthostatic vital signs are normal, suspect some component of orthostasis given his lightheadedness almost exclusively upon standing. His severe lower extremity distal peripheral polyneuropathy is likely also contributing to his falls. No further inpatient neurological workup is needed. We can be consulted on as-needed basis for any changes neurological status. I have performed a history and physical on the above patient. I have reviewed the above note, and agree.
[2018-08-29 16:56] LABS: Glucose,Whole Blood 171 mg/dL (75-99)
[2018-08-29 21:04] LABS: Glucose,Whole Blood 140 mg/dL (75-99)
[2018-08-29] MEDS: GABAPENTIN 300 MG CAP PO SCH (21:19)
[2018-08-29] MEDS: Acetaminophen-Codeine 300-30mg TAB PO PRN (21:19)
[2018-08-29] MEDS: QUEtiapine 50 MG TAB PO SCH (21:20)
[2018-08-30] MEDS: metFORMIN 500 MG TAB PO SCH ×2 (06:53→17:23)
[2018-08-30] MEDS: INSULIN ASPART 100 UNIT/ML 1 ML 10 ML VIAL SQ SCH ×4 (06:55→21:38)
[2018-08-30] MEDS: SODIUM CHLORIDE 0.9% 1,000 ML IV SCH ×2 (06:55→17:25)
[2018-08-30 06:56] LABS: Glucose,Whole Blood 105 mg/dL (75-99)
[2018-08-30] MEDS: THIAMINE 100 MG TAB PO SCH (10:35)
[2018-08-30] MEDS: ALLOPURINOL 100 MG TAB PO SCH (10:36)
[2018-08-30] MEDS: ATORVASTATIN 10 MG TAB PO SCH (10:36)
[2018-08-30] MEDS: CHOLECALCIFEROL 1,000 UNIT TAB PO SCH (10:40)
[2018-08-30 12:05] LABS: Glucose,Whole Blood 145 mg/dL (75-99)
[2018-08-30] MEDS: Acetaminophen-Codeine 300-30mg TAB PO PRN ×2 (12:50→17:21)
--- NOTE | 2018-08-30 13:13 | P.PN ---
Subjective Progress Note Date: 08/30/18 Principal diagnosis: Frequent falls and profound weight loss and weakness This is a 70-year-old male who presents to the emergency department with complaints of frequent falling. I spoke to his and over the last month or so, the patient has had significant falls. She states that more recently they' ve been occurring more frequently maybe 3 or 4 times a day. The patient could not get up off the ground and the is having a hard time getting the patient. Apparently when he falls he gets his chest is limited in his head. The patient was seen in the emergency room admitted to the hospital. Currently denies any pain. Apparently there was no loss of consciousness. There is no chest pain or chest pressure. No shortness of breath. In the process of working him up, a computed tomography scan of the chest was done which showed thoracic adenopathy including paratracheal and subcarinal adenopathy. This could relate to cancer and/or lymphoma. The patient apparently is being evaluated for placement to snf such as [facility]. The wasn't sure whether or not she or he wouldn't want any further evaluation for the adenopathy. I told her to give it some thought. I said to her that the next best test would be a PET scan. This is an outpatient procedure. This will give us some indication as to whether or not the nodes are more likely malignant or benign. If it was a former, mediastinoscopy could be performed or bronchoscopy with transbronchial needle aspiration. Again, the is not sure whether or not she would want any of this. The patient has been having poor appetite recently and according to the has lost quite a bit of weight. 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 The patient has a history of penile cancer, diabetes, hyperlipidemia, hypertension, DJD, pneumonia, restless leg syndrome, gout, iron deficiency, and multiple other medical problems. His primary doctor's Dr. Rodriguez in [place], [place]. The patient is seen again today 08/30/2018 in follow-up on the selective care unit. He is currently resting quite comfortably in bed. He is awake and alert in no acute distress. Family is at the bedside. He currently denies any shortness of breath, cough or congestion. No chest pain, dizziness lightheadedness. He has been up with assistance only. He is maintaining good O2 saturations in the upper 90s on room air. He's been afebrile. Objective - Vital Signs Vital signs: Vital Signs Temp 98.1 F 08/30/18 08:00 Pulse 94 08/30/18 08:00 Resp 18 08/30/18 08:00 BP 157/70 08/30/18 08:00 Pulse Ox 97 08/30/18 08:00 Intake & Output 08/29/18 08/30/18 08/30/18 18:59 06:59 18:59 Intake Total 360 600 Output Total 220 Balance 360 380 Weight 78 kg Intake: IV 600 Sodium Chloride 0.9% 1, 600 000 ml @ 75 mls/hr IV . [id number] [facility] Rx#:[id number] Oral 360 Output: Urine 220 Other: Voiding Method Urinal # Voids 1 2 # Bowel Movements 1 - Exam No acute distress, confused, and very cachectic and frail looking. On room air. HEENT examination is grossly unremarkable. Mucous membranes are moist. Neck supple. Full range of motion. No adenopathy thyromegaly or neck vein distention. Cardiovascular examination reveals regular rhythm rate. S1-S2 normal. No S3 or S4. No discernible murmur noted. Lungs reveal mostly clear breath sounds. Breath sounds are equal bilaterally. A few mild rhonchi noted. No wheezes or crackles. Abdomen soft bowel sounds are heard. No masses or tenderness. Extremities are intact. No cyanosis clubbing or edema. Skin is without rash or lesion. Neurologic examination is difficult to assess. - Labs CBC & Chem 7: 08/29/18 06:01 08/29/18 06:01 Labs: Abnormal Lab Results - Last 24 Hours (Table) 08/29/18 08/29/18 08/30/18 Range/Units 16:32 21:00 06:54 POC Glucose (mg/dL) 171 H 140 H 105 H (75-99) mg/dL 08/30/18 Range/Units 12:04 POC Glucose (mg/dL) 145 H (75-99) mg/dL Assessment and Plan Assessment: Assessment Extensive mediastinal adenopathy is seen on computed tomography scan, which may relate to malignancy Profound weight loss secondary to decreased appetite, which may reflect the anorexia/cachexia syndrome of malignancy Frequent falls, currently being evaluated by the primary service. History of gout History of hyperlipidemia History of diabetes mellitus Iron deficiency anemia History of penile cancer History of benign essential hypertension DJD History of restless leg syndrome History of bilateral lower extremity neuropathy Plan: The patient was seen and evaluated by Dr. Lima. He is stable from the pulmonary standpoint. He again reiterated the fact that he could have a PET scan in the outpatient setting if his is agreeable. The plan is for placement in an extended care facility. We'll follow the patient on as-needed basis. I, the cosigning physician, performed a history & physical examination of the patient. Lungs sounds are clear. Maintaining good O2 saturations in the 90s on room air. I discussed the assessment and plan of care with my nurse practitioner, Rosa Broussard. I attest to the above note as dictated by her.
[2018-08-30] MEDS: MORPHINE SULFATE 4 MG/ML SYRINGE IV PRN (14:16)
--- NOTE | 2018-08-30 15:20 | P.PN ---
Subjective Progress Note Date: 08/29/18 Principal diagnosis: Falls and weakness 78-year-old gentleman with history of hypertension, diabetes, hyperlipidemia,he also has some type of blood disorder for which she follows with Dr. Mathur in the office.he presents to the hospital on this occasion with frequent falls at home. According to the patient, he states that he has been very weak at home and has had a significant change in his energy levels. He feels tired all the time. He states that he has had multiple falls and once he falls was unable to get up. Patient does have mild symptoms of feeling as though he may pass out before he falls down, but when he hits the ground he is awake. He does not lose consciousness. He is too weak however once he hits the ground to stand back up. He denies any chest discomfort, no palpitations. Laboratory data on admission here white blood cell count 9.6, hemoglobin 10.3, platelet count 34.Sodium 133, potassium 4.5, BUN 24, creatinine 1.1.magnesium level I.4 on admission, 1.5 this morning.troponins 0.043, 0.041, 0.040.A CAT scan of the head and cervical spine was performed which revealed cerebral atrophy. No acute fracture.chest x-ray showed mild pulmonary fibrosis.EKG on arrival showed a sinus tachycardia with ST depression noted in the lateral leads.blood pressure on arrival 150/100 with a heart rate of 100, 95% on room air.at the time of my examination this morning, patient states he feels very tired and has no energy, he denies any chest discomfort, his breathing is stable. He did have an echocardiogram with Doppler study performed in January of this year which revealed an ejection fraction of 45-50%. Severe pulmonary hypertension. Objective - Vital Signs Vital signs: Vital Signs Temp 97.6 F 08/29/18 08:35 Pulse 80 08/29/18 08:35 Resp 18 08/29/18 08:35 BP 145/65 08/29/18 08:35 Pulse Ox 95 08/29/18 08:35 Intake & Output 08/28/18 08/29/18 08/29/18 18:59 06:59 18:59 Intake Total 360 300 Output Total 300 400 Balance 60 -100 Weight 77 kg Intake: IV 300 Sodium Chloride 0.9% 1, 300 000 ml @ 75 mls/hr IV . [id number] [facility] Rx#:[id number] Oral 360 Output: Urine 300 400 Other: # Voids 1 - Exam GENERAL: This is a 78-year-old gentleman in no acute distress at the time of my examination HEENT: Head is atraumatic, normocephalic. Pupils equal, round. Sclera anicteric. Conjunctiva are clear. Mucous membranes of the mouth are moist. Neck is supple. There is no elevated jugular venous pressure.No carotid bruit is heard. HEART EXAMINATION: [Heart S1, S2 normal. No murmur or gallop heard.] CHEST EXAMINATION:[ Lungs are clear to auscultation and precussion. No chest wall tenderness is noted on palpation or with deep breathing.] ABDOMEN: [ Soft, nontender. Bowel sounds are heard. No organomegaly noted]. EXTREMITIES:[ 2+ peripheral pulses with no evidence of peripheral edema and no calf tenderness noted]. NEUROLOGIC [patient is awake, alert and oriented X3.] - Labs CBC & Chem 7: 08/29/18 06:01 08/29/18 06:01 Labs: Abnormal Lab Results - Last 24 Hours (Table) 08/28/18 08/28/18 08/28/18 Range/Units 02:18 11:38 17:12 RBC (4.30-5.90) m/uL Hgb (13.0-17.5) gm/dL Hct (39.0-53.0) % RDW (11.5-15.5) % Plt Count (150-450) k/uL Lymphocytes # (Manual) (1.0-4.8) k/uL Metamyelocytes # (Man) (0) k/uL Myelocytes # (Manual) (0) k/uL Sodium (137-145) mmol/L Carbon Dioxide (22-30) mmol/L Glucose (74-99) mg/dL POC Glucose (mg/dL) 142 H 216 H (75-99) mg/dL Hemoglobin A1c 6.6 H (4.0-6.0) % Calcium (8.4-10.2) mg/dL Magnesium (1.6-2.3) mg/dL Urine Protein (Negative) Urine Blood (Negative) Urine Mucus (None) /hpf 08/28/18 08/29/18 08/29/18 Range/Units 19:49 06:01 06:01 RBC 2.65 L (4.30-5.90) m/uL Hgb 8.4 L D (13.0-17.5) gm/dL Hct 25.5 L (39.0-53.0) % RDW 17.8 H (11.5-15.5) % Plt Count 24 L (150-450) k/uL Lymphocytes # (Manual) 0.48 L (1.0-4.8) k/uL Metamyelocytes # (Man) 0.07 H (0) k/uL Myelocytes # (Manual) 0.07 H (0) k/uL Sodium 133 L (137-145) mmol/L Carbon Dioxide 21 L (22-30) mmol/L Glucose 117 H (74-99) mg/dL POC Glucose (mg/dL) 171 H (75-99) mg/dL Hemoglobin A1c (4.0-6.0) % Calcium 8.3 L (8.4-10.2) mg/dL Magnesium 1.5 L (1.6-2.3) mg/dL Urine Protein (Negative) Urine Blood (Negative) Urine Mucus (None) /hpf 08/29/18 08/29/18 Range/Units 06:10 07:00 RBC (4.30-5.90) m/uL Hgb (13.0-17.5) gm/dL Hct (39.0-53.0) % RDW (11.5-15.5) % Plt Count (150-450) k/uL Lymphocytes # (Manual) (1.0-4.8) k/uL Metamyelocytes # (Man) (0) k/uL Myelocytes # (Manual) (0) k/uL Sodium (137-145) mmol/L Carbon Dioxide (22-30) mmol/L Glucose (74-99) mg/dL POC Glucose (mg/dL) 123 H (75-99) mg/dL Hemoglobin A1c (4.0-6.0) % Calcium (8.4-10.2) mg/dL Magnesium (1.6-2.3) mg/dL Urine Protein Trace H (Negative) Urine Blood Trace H (Negative) Urine Mucus Rare H (None) /hpf Assessment and Plan Assessment: 1. Frequent falls with associated mild lightheadedness and near-syncope - Rule out cardiac etiology versus seizures 2. Elevated d-dimer; rule out PE - CTA chest is done which is unremarkable 3. Hypertension; fairly controlled on home medications 4. Diabetes mellitus; last A1c is 6.6 - Remains on metformin 500 mg twice a day - We will continue with Accu-Cheks with insulin sliding scale while patient is in the hospital 5. Hyperlipidemia; stable on atorvastatin 10 mg daily at bedtime 6. Thrombocytopenia; platelet count down to 24; continue to monitor closely 7. Elevated troponin - not consistent with acute coronary syndrome with no significant rise and fall pattern. - Cardiology service is following and workup is in progress 8. DVT prophylaxis; subcu heparin Plan We will obtain an echocardiogram with Doppler study. We will also check orthostatic heart rate and blood pressure every shift. Continue to monitor for any tachycardia or bradycardia arrhythmias.We will also obtain a d- dimer.further recommendations to follow.
--- NOTE | 2018-08-30 15:24 | P.PN ---
Subjective Progress Note Date: 08/30/18 Principal diagnosis: Falls and weakness 78-year-old gentleman with history of hypertension, diabetes, hyperlipidemia,he also has some type of blood disorder for which she follows with Dr. Mathur in the office.he presents to the hospital on this occasion with frequent falls at home. According to the patient, he states that he has been very weak at home and has had a significant change in his energy levels. He feels tired all the time. He states that he has had multiple falls and once he falls was unable to get up. Patient does have mild symptoms of feeling as though he may pass out before he falls down, but when he hits the ground he is awake. He does not lose consciousness. He is too weak however once he hits the ground to stand back up. He denies any chest discomfort, no palpitations. Laboratory data on admission here white blood cell count 9.6, hemoglobin 10.3, platelet count 34.Sodium 133, potassium 4.5, BUN 24, creatinine 1.1.magnesium level I.4 on admission, 1.5 this morning.troponins 0.043, 0.041, 0.040.A CAT scan of the head and cervical spine was performed which revealed cerebral atrophy. No acute fracture.chest x-ray showed mild pulmonary fibrosis.EKG on arrival showed a sinus tachycardia with ST depression noted in the lateral leads.blood pressure on arrival 150/100 with a heart rate of 100, 95% on room air.at the time of my examination this morning, patient states he feels very tired and has no energy, he denies any chest discomfort, his breathing is stable. He did have an echocardiogram with Doppler study performed in January of this year which revealed an ejection fraction of 45-50%. Severe pulmonary hypertension. 08/30/2018 Patient is seen in follow-up on the selective care unit. He is currently resting quite comfortably in bed. He is awake and alert in no acute distress. Family is at the bedside. He currently denies any shortness of breath, cough or congestion. No chest pain, dizziness lightheadedness. He has been up with assistance only. He is maintaining good O2 saturations in the upper 90s on room air. He's been afebrile CTA chest done for possible PE shows extensive mediastinal lymphadenopathy; pulmonary service is consulted; patient does have history of profound weight loss and decreased appetite which might be related to malignancy in view of extensive mediastinotomy lymphadenopathy; pulmonary service is recommending PET scan and further workup as an outpatient Disposition; Patient is recommended for discharge possibly to an extended care facility Objective - Vital Signs Vital signs: Vital Signs Temp 98.2 F 08/30/18 12:00 Pulse 94 08/30/18 12:00 Resp 18 08/30/18 12:00 BP 128/65 08/30/18 12:00 Pulse Ox 96 08/30/18 12:00 Intake & Output 08/29/18 08/30/18 08/30/18 18:59 06:59 18:59 Intake Total 360 600 Output Total 220 Balance 360 380 Weight 78 kg Intake: IV 600 Sodium Chloride 0.9% 1, 600 000 ml @ 75 mls/hr IV . [id number] [facility] Rx#:[id number] Oral 360 Output: Urine 220 Other: Voiding Method Urinal Urinal # Voids 1 2 # Bowel Movements 1 - Exam GENERAL: This is a 78-year-old gentleman in no acute distress at the time of my examination HEENT: Head is atraumatic, normocephalic. Pupils equal, round. Sclera anicteric. Conjunctiva are clear. Mucous membranes of the mouth are moist. Neck is supple. There is no elevated jugular venous pressure.No carotid bruit is heard. HEART EXAMINATION: [Heart S1, S2 normal. No murmur or gallop heard.] CHEST EXAMINATION:[ Lungs are clear to auscultation and precussion. No chest wall tenderness is noted on palpation or with deep breathing.] ABDOMEN: [ Soft, nontender. Bowel sounds are heard. No organomegaly noted]. EXTREMITIES:[ 2+ peripheral pulses with no evidence of peripheral edema and no calf tenderness noted]. NEUROLOGIC [patient is awake, alert and oriented X3.] - Labs CBC & Chem 7: 08/29/18 06:01 08/29/18 06:01 Labs: Abnormal Lab Results - Last 24 Hours (Table) 08/29/18 08/29/18 08/30/18 Range/Units 16:32 21:00 06:54 POC Glucose (mg/dL) 171 H 140 H 105 H (75-99) mg/dL 08/30/18 Range/Units 12:04 POC Glucose (mg/dL) 145 H (75-99) mg/dL Assessment and Plan Assessment: 1. Frequent falls with associated mild lightheadedness and near-syncope - Rule out cardiac etiology versus seizures 2. Elevated d-dimer; rule out PE - CTA chest is done which is unremarkable 3. Hypertension; fairly controlled on home medications 4. Diabetes mellitus; last A1c is 6.6 - Remains on metformin 500 mg twice a day - We will continue with Accu-Cheks with insulin sliding scale while patient is in the hospital 5. Hyperlipidemia; stable on atorvastatin 10 mg daily at bedtime 6. Thrombocytopenia; platelet count down to 24; continue to monitor closely 7. Elevated troponin - not consistent with acute coronary syndrome with no significant rise and fall pattern. - Cardiology service is following and workup is in progress 8. DVT prophylaxis; subcu heparin Plan We will obtain an echocardiogram with Doppler study. We will also check orthostatic heart rate and blood pressure every shift. Continue to monitor for any tachycardia or bradycardia arrhythmias.We will also obtain a d- dimer.further recommendations to follow. Time with Patient: Greater than 30
[2018-08-30 17:13] LABS: Glucose,Whole Blood 135 mg/dL (75-99)
[2018-08-30] MEDS: GABAPENTIN 300 MG CAP PO SCH (19:59)
[2018-08-30] MEDS: QUEtiapine 50 MG TAB PO SCH (19:59)
[2018-08-30 21:38] LABS: Glucose,Whole Blood 128 mg/dL (75-99)
[2018-08-31 03:08] VITALS: RESP 18
[2018-08-31] MEDS: metFORMIN 500 MG TAB PO SCH ×2 (06:20→17:47)
[2018-08-31 06:48] LABS: Glucose,Whole Blood 91 mg/dL (75-99)
[2018-08-31] MEDS: INSULIN ASPART 100 UNIT/ML 1 ML 10 ML VIAL SQ SCH ×4 (06:51→21:09)
[2018-08-31 08:00] LABS: Anisocytosis Slight; Hypochromasia Slight; MCH 29.3 pg (25.0-35.0); MCHC 30.7 g/dL (31.0-37.0); MCV 95.5 fL (80.0-100.0); Mean Platelet Volume 8.8; RBC 2.73 m/uL (4.30-5.90); RDW 17.3 % (11.5-15.5); WBC 5.8 k/uL (3.8-10.6)
[2018-08-31 08:04] LABS: Platelet Count 34 k/uL (150-450)
[2018-08-31 08:15] LABS: Calcium 8.2 mg/dL (8.4-10.2); Potassium 4.3 mmol/L (3.5-5.1)
[2018-08-31 08:40] LABS: Band Neutrophils % 13 %; Eosinophils # (M) 0.35 k/uL (0-0.7); Lymphocytes # (M) 0.41 k/uL (1.0-4.8); Metamyelocytes # (M) 0.12 k/uL (0); Metamyelocytes % 2 %; Monocytes # (M) 0.06 k/uL (0-1.0); Myelocytes # (M) 0.06 k/uL (0); Myelocytes % 1 %; Neutrophils % (M) 72 %; Nucleated Red Blood Cells 0 /100 WBC (0-0); Total Cells Counted 200
[2018-08-31 08:42] LABS: Polychromasia Present
[2018-08-31] MEDS: ALLOPURINOL 100 MG TAB PO SCH (08:51)
[2018-08-31] MEDS: ATORVASTATIN 10 MG TAB PO SCH (08:51)
[2018-08-31] MEDS: THIAMINE 100 MG TAB PO SCH (08:51)
[2018-08-31] MEDS: CHOLECALCIFEROL 1,000 UNIT TAB PO SCH (08:51)
[2018-08-31] MEDS: SODIUM CHLORIDE 0.9% 1,000 ML IV SCH ×2 (08:57→17:49)
[2018-08-31 12:03] LABS: Glucose,Whole Blood 77 mg/dL (75-99)
[2018-08-31] MEDS: PANTOPRAZOLE 40 MG TABLET PO SCH ×2 (12:16→17:47)
[2018-08-31 17:08] LABS: Glucose,Whole Blood 125 mg/dL (75-99)
[2018-08-31] MEDS: MORPHINE SULFATE 4 MG/ML SYRINGE IV PRN ×2 (18:37→22:40)
[2018-08-31 19:26] LABS: Anisocytosis Slight; HGB 8.2 gm/dL (13.0-17.5); Hypochromasia Slight; MCH 29.7 pg (25.0-35.0); MCHC 31.6 g/dL (31.0-37.0); MCV 94.1 fL (80.0-100.0); Mean Platelet Volume 9.2; RBC 2.76 m/uL (4.30-5.90); RDW 17.1 % (11.5-15.5)
[2018-08-31 19:27] LABS: Platelet Count 37 k/uL (150-450)
[2018-08-31] MEDS: QUEtiapine 50 MG TAB PO SCH (21:08)
[2018-08-31] MEDS: GABAPENTIN 300 MG CAP PO SCH (21:08)
[2018-08-31 21:12] LABS: Glucose,Whole Blood 123 mg/dL (75-99)
[2018-08-31] MEDS: MAGNESIUM SULFATE-D5W PMX 1 GM in DEXTROSE/WATER 1 100ML.BAG IVPB SCH ×2 (22:02→23:27)
[2018-09-01 05:33] LABS: Glucose,Whole Blood 104 mg/dL (75-99)
[2018-09-01] MEDS: INSULIN ASPART 100 UNIT/ML 1 ML 10 ML VIAL SQ SCH ×2 (06:22→12:03)
[2018-09-01] MEDS: metFORMIN 500 MG TAB PO SCH (06:42)
[2018-09-01] MEDS: PANTOPRAZOLE 40 MG TABLET PO SCH (06:42)
[2018-09-01] MEDS: SODIUM CHLORIDE 0.9% 1,000 ML IV SCH (06:45)
[2018-09-01] MEDS: Acetaminophen-Codeine 300-30mg TAB PO PRN (06:57)
[2018-09-01] MEDS: THIAMINE 100 MG TAB PO SCH (08:39)
[2018-09-01] MEDS: ATORVASTATIN 10 MG TAB PO SCH (08:39)
[2018-09-01] MEDS: ALLOPURINOL 100 MG TAB PO SCH (08:39)
[2018-09-01] MEDS: CHOLECALCIFEROL 1,000 UNIT TAB PO SCH (08:39)
[2018-09-01 08:44] VITALS: PULSE 86
[2018-09-01 11:12] LABS: Glucose,Whole Blood 306 mg/dL (75-99)
[2018-09-01 12:27] VITALS: BP 137/65; TEMP 97.8
--- NOTE | 2018-09-01 14:01 | P.PN ---
Subjective Progress Note Date: 08/31/18 Principal diagnosis: Falls and weakness 78-year-old gentleman with history of hypertension, diabetes, hyperlipidemia,he also has some type of blood disorder for which she follows with Dr. Mathur in the office.he presents to the hospital on this occasion with frequent falls at home. According to the patient, he states that he has been very weak at home and has had a significant change in his energy levels. He feels tired all the time. He states that he has had multiple falls and once he falls was unable to get up. Patient does have mild symptoms of feeling as though he may pass out before he falls down, but when he hits the ground he is awake. He does not lose consciousness. He is too weak however once he hits the ground to stand back up. He denies any chest discomfort, no palpitations. Laboratory data on admission here white blood cell count 9.6, hemoglobin 10.3, platelet count 34.Sodium 133, potassium 4.5, BUN 24, creatinine 1.1.magnesium level I.4 on admission, 1.5 this morning.troponins 0.043, 0.041, 0.040.A CAT scan of the head and cervical spine was performed which revealed cerebral atrophy. No acute fracture.chest x-ray showed mild pulmonary fibrosis.EKG on arrival showed a sinus tachycardia with ST depression noted in the lateral leads.blood pressure on arrival 150/100 with a heart rate of 100, 95% on room air.at the time of my examination this morning, patient states he feels very tired and has no energy, he denies any chest discomfort, his breathing is stable. He did have an echocardiogram with Doppler study performed in January of this year which revealed an ejection fraction of 45-50%. Severe pulmonary hypertension. 08/30/2018 Patient is seen in follow-up on the selective care unit. He is currently resting quite comfortably in bed. He is awake and alert in no acute distress. Family is at the bedside. He currently denies any shortness of breath, cough or congestion. No chest pain, dizziness lightheadedness. He has been up with assistance only. He is maintaining good O2 saturations in the upper 90s on room air. He's been afebrile CTA chest done for possible PE shows extensive mediastinal lymphadenopathy; pulmonary service is consulted; patient does have history of profound weight loss and decreased appetite which might be related to malignancy in view of extensive mediastinotomy lymphadenopathy; pulmonary service is recommending PET scan and further workup as an outpatient 08/31/2018; Patient is seen for follow-up with at bedside; we did go over possible PAC scanning as an outpatient for workup of mediastinal lymphadenopathy and follow- up with pulmonary service as outpatient Disposition; Patient is recommended for discharge possibly to an extended care facility Objective - Vital Signs Vital signs: Vital Signs Temp 97.8 F 08/31/18 15:31 Pulse 89 08/31/18 15:31 Resp 18 08/31/18 15:31 BP 135/66 08/31/18 15:31 Pulse Ox 97 08/31/18 15:31 Intake & Output 08/30/18 08/31/18 08/31/18 18:59 06:59 18:59 Intake Total 830 Output Total 1850 150 Balance -1850 680 Weight 79.5 kg Intake: IV 600 Sodium Chloride 0.9% 1, 600 000 ml @ 75 mls/hr IV . [id number] [facility] Rx#:[id number] Oral 230 Output: Urine 1850 150 Other: Voiding Method Urinal Urinal Urinal # Voids 2 2 - Exam GENERAL: This is a 78-year-old gentleman in no acute distress at the time of my examination HEENT: Head is atraumatic, normocephalic. Pupils equal, round. Sclera anicteric. Conjunctiva are clear. Mucous membranes of the mouth are moist. Neck is supple. There is no elevated jugular venous pressure.No carotid bruit is heard. HEART EXAMINATION: [Heart S1, S2 normal. No murmur or gallop heard.] CHEST EXAMINATION:[ Lungs are clear to auscultation and precussion. No chest wall tenderness is noted on palpation or with deep breathing.] ABDOMEN: [ Soft, nontender. Bowel sounds are heard. No organomegaly noted]. EXTREMITIES:[ 2+ peripheral pulses with no evidence of peripheral edema and no calf tenderness noted]. NEUROLOGIC [patient is awake, alert and oriented X3.] - Labs CBC & Chem 7: 08/31/18 19:11 08/31/18 07:04 Labs: Abnormal Lab Results - Last 24 Hours (Table) 08/30/18 08/30/18 08/31/18 Range/Units 16:59 21:37 07:04 RBC 2.73 L (4.30-5.90) m/uL Hgb 8.0 L (13.0-17.5) gm/dL Hct 26.0 L (39.0-53.0) % MCHC 30.7 L (31.0-37.0) g/dL RDW 17.3 H (11.5-15.5) % Plt Count 34 L (150-450) k/uL Lymphocytes # (Manual) 0.41 L (1.0-4.8) k/uL Metamyelocytes # (Man) 0.12 H (0) k/uL Myelocytes # (Manual) 0.06 H (0) k/uL Sodium (137-145) mmol/L POC Glucose (mg/dL) 135 H 128 H (75-99) mg/dL Calcium (8.4-10.2) mg/dL 08/31/18 Range/Units 07:04 RBC (4.30-5.90) m/uL Hgb (13.0-17.5) gm/dL Hct (39.0-53.0) % MCHC (31.0-37.0) g/dL RDW (11.5-15.5) % Plt Count (150-450) k/uL Lymphocytes # (Manual) (1.0-4.8) k/uL Metamyelocytes # (Man) (0) k/uL Myelocytes # (Manual) (0) k/uL Sodium 132 L (137-145) mmol/L POC Glucose (mg/dL) (75-99) mg/dL Calcium 8.2 L (8.4-10.2) mg/dL Assessment and Plan Assessment: 1. Frequent falls with associated mild lightheadedness and near-syncope - Rule out cardiac etiology versus seizures 2. Elevated d-dimer; rule out PE - CTA chest is done which is unremarkable 3. Hypertension; fairly controlled on home medications 4. Diabetes mellitus; last A1c is 6.6 - Remains on metformin 500 mg twice a day - We will continue with Accu-Cheks with insulin sliding scale while patient is in the hospital 5. Hyperlipidemia; stable on atorvastatin 10 mg daily at bedtime 6. Thrombocytopenia; platelet count down to 24; continue to monitor closely 7. Elevated troponin - not consistent with acute coronary syndrome with no significant rise and fall pattern. - Cardiology service is following and workup is in progress 8. DVT prophylaxis; subcu heparin Plan We will obtain an echocardiogram with Doppler study. We will also check orthostatic heart rate and blood pressure every shift. Continue to monitor for any tachycardia or bradycardia arrhythmias.We will also obtain a d- dimer.further recommendations to follow. Time with Patient: Greater than 30
--- NOTE | 2018-09-01 14:03 | P.PN ---
Subjective Progress Note Date: 09/01/18 Principal diagnosis: Falls and weakness 78-year-old gentleman with history of hypertension, diabetes, hyperlipidemia,he also has some type of blood disorder for which she follows with Dr. Mathur in the office.he presents to the hospital on this occasion with frequent falls at home. According to the patient, he states that he has been very weak at home and has had a significant change in his energy levels. He feels tired all the time. He states that he has had multiple falls and once he falls was unable to get up. Patient does have mild symptoms of feeling as though he may pass out before he falls down, but when he hits the ground he is awake. He does not lose consciousness. He is too weak however once he hits the ground to stand back up. He denies any chest discomfort, no palpitations. Laboratory data on admission here white blood cell count 9.6, hemoglobin 10.3, platelet count 34.Sodium 133, potassium 4.5, BUN 24, creatinine 1.1.magnesium level I.4 on admission, 1.5 this morning.troponins 0.043, 0.041, 0.040.A CAT scan of the head and cervical spine was performed which revealed cerebral atrophy. No acute fracture.chest x-ray showed mild pulmonary fibrosis.EKG on arrival showed a sinus tachycardia with ST depression noted in the lateral leads.blood pressure on arrival 150/100 with a heart rate of 100, 95% on room air.at the time of my examination this morning, patient states he feels very tired and has no energy, he denies any chest discomfort, his breathing is stable. He did have an echocardiogram with Doppler study performed in January of this year which revealed an ejection fraction of 45-50%. Severe pulmonary hypertension. 08/30/2018 Patient is seen in follow-up on the selective care unit. He is currently resting quite comfortably in bed. He is awake and alert in no acute distress. Family is at the bedside. He currently denies any shortness of breath, cough or congestion. No chest pain, dizziness lightheadedness. He has been up with assistance only. He is maintaining good O2 saturations in the upper 90s on room air. He's been afebrile CTA chest done for possible PE shows extensive mediastinal lymphadenopathy; pulmonary service is consulted; patient does have history of profound weight loss and decreased appetite which might be related to malignancy in view of extensive mediastinotomy lymphadenopathy; pulmonary service is recommending PET scan and further workup as an outpatient 08/31/2018; Patient is seen for follow-up with at bedside; we did go over possible PAC scanning as an outpatient for workup of mediastinal lymphadenopathy and follow- up with pulmonary service as outpatient 09/01/2018; Patient's workup and labs reviewed with patient and family; echocardiogram reported as ejection fraction of 55% and no further cardiac workup was recommended by cardiology team; patient continues to have downtrending hemoglobin we will monitor H&H very closely start patient on Protonix and monitor stool occult bloods closely Disposition; Patient is recommended for discharge possibly to an extended care facility Objective - Vital Signs Vital signs: Vital Signs Temp 97.6 F 09/01/18 08:41 Pulse 86 09/01/18 08:41 Resp 18 09/01/18 08:41 BP 132/57 09/01/18 08:41 Pulse Ox 98 09/01/18 08:41 Intake & Output 08/31/18 09/01/18 09/01/18 18:59 06:59 18:59 Intake Total 320 118 Output Total 50 Balance 270 118 Weight 78 kg Intake: IV 80 Sodium Chloride 0.9% 1, 80 000 ml @ 75 mls/hr IV . [id number] [facility] Rx#:[id number] Oral 240 118 Output: Urine 50 Other: Voiding Method Urinal Urinal Urinal # Voids 2 - Exam GENERAL: This is a 78-year-old gentleman in no acute distress at the time of my examination HEENT: Head is atraumatic, normocephalic. Pupils equal, round. Sclera anicteric. Conjunctiva are clear. Mucous membranes of the mouth are moist. Neck is supple. There is no elevated jugular venous pressure.No carotid bruit is heard. HEART EXAMINATION: [Heart S1, S2 normal. No murmur or gallop heard.] CHEST EXAMINATION:[ Lungs are clear to auscultation and precussion. No chest wall tenderness is noted on palpation or with deep breathing.] ABDOMEN: [ Soft, nontender. Bowel sounds are heard. No organomegaly noted]. EXTREMITIES:[ 2+ peripheral pulses with no evidence of peripheral edema and no calf tenderness noted]. NEUROLOGIC [patient is awake, alert and oriented X3.] - Labs CBC & Chem 7: 08/31/18 19:11 08/31/18 07:04 Labs: Abnormal Lab Results - Last 24 Hours (Table) 08/31/18 08/31/18 08/31/18 Range/Units 17:07 19:11 19:11 RBC 2.76 L (4.30-5.90) m/uL Hgb 8.2 L (13.0-17.5) gm/dL Hct 26.0 L (39.0-53.0) % RDW 17.1 H (11.5-15.5) % Plt Count 37 L (150-450) k/uL POC Glucose (mg/dL) 125 H (75-99) mg/dL Magnesium 1.5 L (1.6-2.3) mg/dL 08/31/18 09/01/18 09/01/18 Range/Units 21:09 05:31 11:11 RBC (4.30-5.90) m/uL Hgb (13.0-17.5) gm/dL Hct (39.0-53.0) % RDW (11.5-15.5) % Plt Count (150-450) k/uL POC Glucose (mg/dL) 123 H 104 H 306 H (75-99) mg/dL Magnesium (1.6-2.3) mg/dL Assessment and Plan Assessment: 1. Frequent falls with associated mild lightheadedness and near-syncope - Rule out cardiac etiology versus seizures 2. Elevated d-dimer; rule out PE - CTA chest is done which is unremarkable 3. Hypertension; fairly controlled on home medications 4. Diabetes mellitus; last A1c is 6.6 - Remains on metformin 500 mg twice a day - We will continue with Accu-Cheks with insulin sliding scale while patient is in the hospital 5. Hyperlipidemia; stable on atorvastatin 10 mg daily at bedtime 6. Thrombocytopenia; platelet count down to 24; continue to monitor closely 7. Elevated troponin - not consistent with acute coronary syndrome with no significant rise and fall pattern. - Cardiology service is following and workup is in progress 8. DVT prophylaxis; subcu heparin Plan We will obtain an echocardiogram with Doppler study. We will also check orthostatic heart rate and blood pressure every shift. Continue to monitor for any tachycardia or bradycardia arrhythmias.We will also obtain a d- dimer.further recommendations to follow.
--- NOTE | 2018-09-01 14:04 | P.DS ---
Providers Date of admission: 08/27/18 21:02 Expected date of discharge: 09/01/18 Attending physician: Feliz Tucker Consults: 08/28/18 02:00 Consult Physician Routine Consulting Provider: Syeda España Consult Reason/Comments: + trops & EKG changes Do you want consulting provider notified?: Yes 08/28/18 13:26 Consult Physician Routine Consulting Provider: Michelle Watts Consult Reason/Comments: Possible Seizures Do you want consulting provider notified?: Yes 08/29/18 10:29 Consult Physician Routine Consulting Provider: Sydney Locke Consult Reason/Comments: Mediastinal lymphadenopathy Do you want consulting provider notified?: Yes Primary care physician: [facility] Course: 78-year-old gentleman with history of hypertension, diabetes, hyperlipidemia,he also has some type of blood disorder for which she follows with Dr. Mathur in the office.he presents to the hospital on this occasion with frequent falls at home. According to the patient, he states that he has been very weak at home and has had a significant change in his energy levels. He feels tired all the time. He states that he has had multiple falls and once he falls was unable to get up. Patient does have mild symptoms of feeling as though he may pass out before he falls down, but when he hits the ground he is awake. He does not lose consciousness. He is too weak however once he hits the ground to stand back up. He denies any chest discomfort, no palpitations. Laboratory data on admission here white blood cell count 9.6, hemoglobin 10.3, platelet count 34.Sodium 133, potassium 4.5, BUN 24, creatinine 1.1.magnesium level I.4 on admission, 1.5 this morning.troponins 0.043, 0.041, 0.040.A CAT scan of the head and cervical spine was performed which revealed cerebral atrophy. No acute fracture.chest x-ray showed mild pulmonary fibrosis.EKG on arrival showed a sinus tachycardia with ST depression noted in the lateral leads.blood pressure on arrival 150/100 with a heart rate of 100, 95% on room air.at the time of my examination this morning, patient states he feels very tired and has no energy, he denies any chest discomfort, his breathing is stable. He did have an echocardiogram with Doppler study performed in January of this year which revealed an ejection fraction of 45-50%. Severe pulmonary hypertension. 08/30/2018 Patient is seen in follow-up on the selective care unit. He is currently resting quite comfortably in bed. He is awake and alert in no acute distress. Family is at the bedside. He currently denies any shortness of breath, cough or congestion. No chest pain, dizziness lightheadedness. He has been up with assistance only. He is maintaining good O2 saturations in the upper 90s on room air. He's been afebrile CTA chest done for possible PE shows extensive mediastinal lymphadenopathy; pulmonary service is consulted; patient does have history of profound weight loss and decreased appetite which might be related to malignancy in view of extensive mediastinotomy lymphadenopathy; pulmonary service is recommending PET scan and further workup as an outpatient 08/31/2018; Patient is seen for follow-up with at bedside; we did go over possible PAC scanning as an outpatient for workup of mediastinal lymphadenopathy and follow- up with pulmonary service as outpatient 09/01/2018; Patient's workup and labs reviewed with patient and family; echocardiogram reported as ejection fraction of 55% and no further cardiac workup was recommended by cardiology team; patient continues to have downtrending hemoglobin we will monitor H&H very closely start patient on Protonix and monitor stool occult bloods closely Disposition; Patient is recommended for discharge possibly to an extended care facility Patient Condition at Discharge: Good Plan - Discharge Summary Discharge Rx Participant: No New Discharge Prescriptions: New metFORMIN HCL [Glucophage] 500 mg PO BID-W/MEALS #0 tab Pantoprazole [Protonix] 40 mg PO AC-BID #60 tablet. Continue Lovastatin [Mevacor] 40 mg PO QAM Cholecalciferol [Vitamin D3] 1,000 unit PO DAILY Gabapentin [Neurontin] 300 mg PO HS Allopurinol [Zyloprim] 300 mg PO DAILY metFORMIN HCL [Glucophage] 500 mg PO BID Temazepam [Restoril] 7.5 mg PO HS PRN PRN Reason: Insomnia QUEtiapine [SEROquel] 50 mg PO HS Thiamine [Vitamin B-1] 100 mg PO DAILY Discharge Medication List Lovastatin [Mevacor] 40 mg PO QAM 02/18/16 [History] Allopurinol [Zyloprim] 300 mg PO DAILY 04/17/17 [History] Cholecalciferol [Vitamin D3] 1,000 unit PO DAILY 04/17/17 [History] Gabapentin [Neurontin] 300 mg PO HS 04/17/17 [History] metFORMIN HCL [Glucophage] 500 mg PO BID 01/02/18 [History] QUEtiapine [SEROquel] 50 mg PO HS 08/27/18 [History] Temazepam [Restoril] 7.5 mg PO HS PRN 08/27/18 [History] Thiamine [Vitamin B-1] 100 mg PO DAILY 08/27/18 [History] Pantoprazole [Protonix] 40 mg PO AC-BID #60 tablet.dr 09/01/18 [Rx] metFORMIN HCL [Glucophage] 500 mg PO BID-W/MEALS #0 tab 09/01/18 [Rx] Follow up Appointment(s)/Referral(s): Hamilton Rodriguez DO [Primary Care Provider] - 1-2 days Discharge Disposition: TRANSFER TO SNF/ECF
--- NOTE | 2018-09-02 07:43 | CDI ---
Last Revision, October 2017 Mild- mod pro jose malnutrition Documentation Clarification Form Date: 09/01/2018 1:34:00 PM From: Lety Britton RN Admit Date: 08/27/2018 9:02:00 PM Patient Name: Slim Mohr Visit Number: [id number] ATTENTION: The Clinical Documentation Specialists (CDI) and [facility] Coding Staff appreciate your assistance in clarifying documentation. Please respond to the clarification below the line at the bottom and electronically sign. The CDI & [facility] Coding staff will review the response and follow-up if needed. Please note: Queries are made part of the Legal Health Record. If you have any questions, please contact the author of this message via ITS. Ed Archer MD, Can you please render your opinion on the following documentation? Pt. admitted with neck pain, elevated trops. and multiple falls. 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 08/30 profound weight loss and weakness Treatment: Dietary Consult: none Lab monitoring In your professional opinion, can you please clarify if these findings signify one of the following conditions? Mild Protein-Calorie Malnutrition Moderate Protein-Calorie Malnutrition Severe Protein-Calorie Malnutrition Other condition, please specify Unable to determine MTDD
--- NOTE | 2018-09-03 15:48 | CDI ---
admitted with Syncope Documentation Clarification Form Date: 09/03/2018 3:24:10 PM From: TERESA Mauricio; Sheron Griffin Director [facility] Phone: If you have a question about this query, please contact Sheron Griffin Director [facility] at [phone] between 8am and 5pm. Admit Date: 08/27/2018 9:02:00 PM Patient Name: Slim Mohr Visit Number: [id number] Discharge Date: 09/01/2018 ATTENTION: The Clinical Documentation Specialists (CDI) and [facility] Coding Staff appreciate your assistance in clarifying documentation. Please respond to the clarification below the line at the bottom and electronically sign. The CDI & [facility] Coding staff will review the response and follow-up if needed. Please note: Queries are made part of the Legal Health Record. If you have any questions, please contact the author of this message via ITS. Marielle ALAMO MD The patient was admitted through the ED due to frequent falls, EKG changes and elevated troponin. Presenting symptoms: Frequent falls, profound weight loss, syncope Patient history/risk factors: Hypertension, diabetes w/neuropathy, hyperlipidemia, history of penile CA. Radiology findings: CT of the chest/mediastinal lymphadenopathy Vital Signs: temp 98.2, pulse 105, resp 18, BP 151/101 Treatment: IV hydration. Orthostatic vitals ordered. Replace magnesium. Consults: Neurology felt distal peripheral polyneuropathy is likely contributing to the falls. The patients principal diagnosis has not been clearly identified and requires clarification. In your professional opinion, can you please clarify which diagnosis, after study, accounted for the patients presenting symptoms and was the reason chiefly responsible for the admission? MTDD
--- NOTE | 2018-09-15 15:12 | CDI ---
Last Revision, October 2017 Documentation Clarification Form Date: 09/15/18 3:24:00 PM From: TERESA Mauricio; Sheron Griffin [employer] Phone: If you have a question about this query, please contact Sheron Griffin [employer] Ed Teacher at [phone] between 8am and 5pm. Admit Date: 08/27/2018 9:02:00 PM Patient Name: Slim Mohr Visit Number: [id number] Discharge Date: 09/01/2018 ATTENTION: The Clinical Documentation Specialists (CDI) and [facility] Coding Staff appreciate your assistance in clarifying documentation. Please respond to the clarification below the line at the bottom and electronically sign. The CDI & [facility] Coding staff will review the response and follow-up if needed. Please note: Queries are made part of the Legal Health Record. If you have any questions, please contact the author of this message via ITS. SEJAL Archer The patient was admitted through the ED due to frequent falls, EKG changes and elevated troponin. Presenting symptoms: Frequent falls, profound weight loss, syncope Patient history/risk factors: Hypertension, diabetes w/neuropathy, hyperlipidema, history of penile CA. Radiology findings: CT of the chest/mediastinal lymphadenopathy Vital Signs: temp 98.2, pulse 105, resp 18, BP 151/101 Treatment: IV hydration. Orthostatic vitals ordered. Replace magnesium. Consults: Neurology felt distal peripheral polyneuropathy is likely contributing to the falls. The patients principal diagnosis has not been clearly identified and requires clarification. In your professional opinion, can you please clarify which diagnosis, after study, accounted for the patients presenting symptoms and was the reason chiefly responsible for the admission? MTDD
== END 2018-09-01 14:38 | DRG 312 ==
LOC: EC 19:05 → 3SCARD 21:02
PROVIDERS: ADMIT Hospitalist; ATTEND Hospitalist
DX: R55 Syncope and collapse (principal); E44.1 Mild protein-calorie malnutrition; E87.1 Hypo-osmolality and hyponatremia; E11.42 Type 2 diabetes mellitus with diabetic polyneuropathy; D50.9 Iron deficiency anemia, unspecified; D69.6 Thrombocytopenia, unspecified; E78.5 Hyperlipidemia, unspecified; E83.42 Hypomagnesemia; G25.81 Restless legs syndrome; I10 Essential (primary) hypertension; I27.20 Pulmonary hypertension, unspecified; J84.10 Pulmonary fibrosis, unspecified; M10.9 Gout, unspecified; M19.90 Unspecified osteoarthritis, unspecified site; R29.6 Repeated falls; R79.1 Abnormal coagulation profile; Z79.84 Long term (current) use of oral hypoglycemic drugs; Z79.899 Other long term (current) drug therapy; Z80.1 Family history of malignant neoplasm of trachea, bronchus and lung; Z82.49 Family history of ischemic heart disease and other diseases of the circulatory system; Z85.49 Personal history of malignant neoplasm of other male genital organs; Z98.42 Cataract extraction status, left eye; Z98.41 Cataract extraction status, right eye; Z96.1 Presence of intraocular lens; Z96.651 Presence of right artificial knee joint; R59.0 Localized enlarged lymph nodes; R53.1 Weakness; Z88.8 Allergy status to other drugs, medicaments and biological substances; Z89.412 Acquired absence of left great toe; E11.65 Type 2 diabetes mellitus with hyperglycemia
CPT/HCPCS: 36415; 70450; 71046; 71275; 72125; 80048; 80053; 81001; 82550; 82553; 83036; 83735; 84100; 84484; 85025; 85027; 85379; 85610; 85730; 93005; 93306; 95816; 96360; 96361; 99285

== ENCOUNTER → 2018-09-13 | Outpatient (CLI) | payer MEDICARE ==
--- NOTE | 2018-09-15 16:05 | PE ---
Nuclear medicine PET/CT HISTORY: Penile carcinoma, initial Patient received 13.2 mCi F-18 FDG intravenously in delayed scanning was performed from the skull bas e to the mid thighs. An attenuation correction, localization CT scan was performed. Correlation chest CT 08/29/2018 Neck and chest: There is supraclavicular adenopathy on the right, right paratracheal adenopathy as no silver on CT with corresponding hypermetabolic uptake. SUV 6.5 in the supraclavicular region, 6.3 and th e superior mediastinum, 6.8-7.2 in the paratracheal aorticopulmonary window regions. Small bilateral pleural effusions are present. Coronary artery calcifications noted. Left axillary node shows mild up take, SUV 2.1. Nodular density in the left lower lobe axial image 110 does not show any hypermetaboli c uptake. Abdomen pelvis: Left kidney is atrophic. No retroperitoneal adenopathy. No evident liver mass. No kishan picious hypermetabolic uptake. Urinary bladder shows a thickened wall possibly due to chronic outlet obstruction. There is hypermetabolic uptake noted along the colon which may be physiologic, if bowel screening has not been performed then it should be considered. Osseous structures show somewhat diffuse hypermetabolic uptake possibly due to marrow stimulation. No focal sclerotic or lytic lesions are identified Degenerative disc changes, facet arthropathy and spi nal curvature noted at the lumbar spine. 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 IMPRESSION: Findings suggest metastatic disease. Additional findings above.
== END | disposition home or self-care (01) ==
LOC: RADPETMAIN 08:47
PROVIDERS: ATTEND Internal Medicine Critical Care Medicine
DX: C60.8 Malignant neoplasm of overlapping sites of penis (principal); J90 Pleural effusion, not elsewhere classified; I25.10 Atherosclerotic heart disease of native coronary artery without angina pectoris; R94.8 Abnormal results of function studies of other organs and systems; R59.1 Generalized enlarged lymph nodes; N26.1 Atrophy of kidney (terminal); N32.89 Other specified disorders of bladder; M43.28 Fusion of spine, sacral and sacrococcygeal region
CPT/HCPCS: 78815; A9552